=== PATIENT | male | born 1940 | race Caucasian/White ===

== ENCOUNTER → 2016-11-10 | Outpatient (CLI) | payer MEDICARE ==
--- NOTE | 2016-11-10 12:33 | CONS ---
DATE OF CONSULTATION: Reason for evaluation is CHAPINCITO. This is a 76-year-old male patient who was diagnosed and treated for obstructive sleep apnea through a Sleep Center in [facility] associated to [facility]. The patient is currently on a CPAP pressure of 11 cm of water. Using an AirFit P10 nasal pillow. He is using heated tubing. Compliancy is averaging around 5.5 hours of CPAP use every night and his CPAP use for more than 4 hours is 28 out of 30. No snoring while on the CPAP. No nocturia. He is averaging at least 6 hours of sleep every night. No major hypersomnia or sleepiness during the day. Alert and awake. Weight has been stable for now. No sleepwalking or sleeptalking. No restlessness in the lower extremities. No other complaints. Past medical history is CHAPINCITO, hypertension, diabetes mellitus, chronic renal failure, hypothyroidism, and BPH. Surgical history includes right shoulder replacement and back surgery. Drug allergies are not known. Patient medication list includes Gabapentin 100 mg 4 times q. day, Pravastatin 20 mg p.o. q. day, Pepcid 20 mg p.o. q. day, ( ) 1 mg 2 tablets at breakfast, Januvia 50 mg p.o. q. day, Flomax 0.4 q. day, Singulair 10 mg p.o. q. day, levothyroxine 75 mcg p.o. q. day, furosemide 20 mg p.o. q. day, aspirin 81 mg p.o. q. day, Norvasc 10 q. day, vitamin D 2,000 units q. day, magnesium 500 mg 1 tablet a day, coenzyme-Q and fish oil. SOCIAL HISTORY: Nonsmoker. No history of alcoholism. No history of IV drugs. Family history is negative for sleep breathing disorder. REVIEW OF SYSTEMS: A 12-point review of systems was done. No nausea, no vomiting, no abdominal pain, no insomnia, no choking or gasping for air. No restlessness in lower extremities. No palpitations. No sleepwalking or sleeptalking. No heartburn. No grinding of the teeth. No memory problems. No depression. BP is 136/66, pulse 64, respirations 16, temperature 97.2, saturation 95% on room air. BMI is 27.6. Weight is 166, height is 5, 5. Neck size 16 inches. GENERAL APPEARANCE: Calm, comfortable. HEENT: Negative for JVD. There is no goiter, neck masses. He has got an obvious overbite with crowding of the posterior pharynx. LUNGS: Clear to auscultation. HEART: Heart sounds are regular rate and rhythm, normal S1, S2. No S3, no murmurs. ABDOMEN: Soft, nontender. No organomegaly. EXTREMITIES: No edema. No cyanosis or clubbing. IMPRESSION: 1. Obstructive sleep apnea with successful therapy with a CPAP pressure of 11 cm of water. 2. Benign prostatic hypertrophy. 3. Hypertension. 4. Diabetes. 5. Chronic renal failure. 6. Hypothyroidism. PLAN: 1. Proceed with treatment with the same level of pressure which is 11 cm of water. 2. Renew the patient's CPAP supplies, including an AirFit P10 small size, heated tubing, filters, and chambers and supplies. 3. Encourage weight loss. 4. CPAP machine is functional and there is no need to repeat the study for now. The order will be sent to [facility], and the patient will see me back in a year's time in followup, earlier if needed.
== END ==
LOC: SLEEP 11:21
PROVIDERS: ATTEND Internal Medicine Critical Care Medicine
DX: G47.33 Obstructive sleep apnea (adult) (pediatric) (principal); I12.9 Hypertensive chronic kidney disease with stage 1 through stage 4 chronic kidney disease, or unspecified chronic kidney disease; N18.9 Chronic kidney disease, unspecified; E11.22 Type 2 diabetes mellitus with diabetic chronic kidney disease; E03.9 Hypothyroidism, unspecified; Z79.82 Long term (current) use of aspirin; Z79.899 Other long term (current) drug therapy
CPT/HCPCS: 99211

== ENCOUNTER → 2016-11-19 | Outpatient (CLI) | payer MEDICARE | END | disposition home or self-care (01) | LOC: LABWHC1 09:04 | PROVIDERS: ATTEND Family Medicine | DX: N18.9 Chronic kidney disease, unspecified (principal) | CPT/HCPCS: 36415; 81050; 82575; 84156 ==

== ENCOUNTER → 2016-11-20 | Outpatient (CLI) | payer MEDICARE ==
--- NOTE | 2016-11-20 14:44 | US ---
EXAMINATION TYPE: US kidneys/renal and bladder DATE OF EXAM: 11/20/2016 2:33 PM COMPARISON: NONE CLINICAL HISTORY: Chronic Kidney Disease N28.9. Diabetic; patient stated has had prior renal stones years ago. EXAM MEASUREMENTS: Right Kidney: 9.9 x 5.4 x 4.3 cm Left Kidney: 9.3 x 6.1 x 5.1 cm Post Void Residual Volume: 35.7 mL Right Kidney: upper pole parallel wall vessel calcification Left Kidney: No hydronephrosis or masses seen Bladder: wnl Bilateral Jets seen: Yes Normal Post Void Residual: Yes IMPRESSION: No significant abnormality.
== END | disposition home or self-care (01) ==
LOC: RADUSWWP 14:04
PROVIDERS: ATTEND Family Medicine
DX: N18.9 Chronic kidney disease, unspecified (principal)
CPT/HCPCS: 76770

== ENCOUNTER → 2017-01-23 | Outpatient (CLI) | payer MEDICARE ==
[2017-01-23 07:23] LABS: Basophils # (A) 0.1 k/uL (0-0.2); Basophils % (A) 1 %; CH 27.2; CHCM 33.1; Eosinophils # (A) 0.5 k/uL (0-0.7); Eosinophils % (A) 6 %; HCT 38.3 % (39.0-53.0); HDW 2.67; HGB 12.9 gm/dL (13.0-17.5); Luc # (Auto) 0.22; Luc % (Auto) 3; Lymphocytes # (A) 1.7 k/uL (1.0-4.8); Lymphocytes % (A) 20 %; MCH 27.7 pg (25.0-35.0); MCHC 33.6 g/dL (31.0-37.0); MCV 82.5 fL (80.0-100.0); Mean Platelet Volume 7.1; Monocytes # (A) 0.5 k/uL (0-1.0); Monocytes % (A) 6 %; Neutrophils # (A) 5.6 k/uL (1.3-7.7); Neutrophils % (A) 65 %; RBC 4.65 m/uL (4.30-5.90); RDW 14.1 % (11.5-15.5); WBC 8.6 k/uL (3.8-10.6); WBC (Perox) 8.61
[2017-01-23 07:55] LABS: Appearance,Urine Turbid (Clear); Bacteria,Urine Few /hpf; Bilirubin,Urine Negative (Negative); Glucose,Urine (UA) Negative (Negative); Ketones,Urine Negative (Negative); Leukocyte Esterase,Urine Large (Negative); Nitrite,Urine Positive (Negative); PH, Urine 6.5 (5.0-8.0); Particle Count 97310; Protein,Urine 1+ (Negative); RBC,Urine 25 /hpf (0-5); Specific Gravity,Urine 1.015 (1.001-1.035); Squamous Epithelial Cell,Urine 2 /hpf (0-4); UA Billing (MACRO vs. MICRO) MICRO; Urobilinogen,Urine <2.0 mg/dL (<2.0); WBC,Urine >182 /hpf (0-5)
[2017-01-23 10:52] LABS: Urine Creatinine 74.3 mg/dL
[2017-01-23 11:08] LABS: Magnesium 2.1 mg/dL (1.6-2.3); Phosphorous 3.6 mg/dL (2.5-4.5); Potassium 4.3 mmol/L (3.5-5.1); Total Bilirubin 0.4 mg/dL (0.2-1.3); Total Protein 7.3 g/dL (6.3-8.2); Uric Acid 6.1 mg/dL (3.5-8.5)
[2017-01-23 11:28] LABS: % Iron Saturation 12.5 % (20-50)
[2017-01-23 14:11] LABS: Hemoglobin A1C 8.2 % (4.2-6.1)
== END | disposition home or self-care (01) ==
LOC: LABWHC1 07:04
PROVIDERS: ATTEND Internal Medicine
DX: D64.9 Anemia, unspecified (principal); N18.4 Chronic kidney disease, stage 4 (severe); N39.0 Urinary tract infection, site not specified; E11.9 Type 2 diabetes mellitus without complications; E55.9 Vitamin D deficiency, unspecified; M10.9 Gout, unspecified
CPT/HCPCS: 36415; 80053; 81001; 82043; 82306; 82570; 82728; 83036; 83540; 83550; 83735; 83970; 84100; 84550; 85025; 87077; 87086; 87186

== ENCOUNTER → 2017-04-19 | Outpatient (CLI) | payer MEDICARE ==
[2017-04-19 08:54] LABS: CH 27.4; CHCM 32.2; HCT 40.5 % (39.0-53.0); HDW 2.61; MCH 27.3 pg (25.0-35.0); MCV 85.3 fL (80.0-100.0); Mean Platelet Volume 7.2; RBC 4.75 m/uL (4.30-5.90); RDW 14.8 % (11.5-15.5); WBC 7.4 k/uL (3.8-10.6)
[2017-04-19 09:02] LABS: Phosphorus 3.7 mg/dL (2.5-4.5); Potassium 4.6 mmol/L (3.5-5.1); Total Bilirubin 0.5 mg/dL (0.2-1.3); Total Protein 7.5 g/dL (6.3-8.2); Uric Acid 6.1 mg/dL (3.5-8.5)
[2017-04-19 15:17] LABS: Iron Saturation 18.39 (15.00-50.00)
== END | disposition home or self-care (01) ==
LOC: LABWHC1 07:50
PROVIDERS: ATTEND Internal Medicine
DX: N18.4 Chronic kidney disease, stage 4 (severe) (principal); D64.9 Anemia, unspecified; E21.3 Hyperparathyroidism, unspecified; E55.9 Vitamin D deficiency, unspecified; M10.9 Gout, unspecified
CPT/HCPCS: 36415; 80053; 82306; 82728; 83540; 83550; 83735; 83970; 84100; 84550; 85027

== ENCOUNTER → 2017-08-21 | Outpatient (CLI) | payer SELFPAY ==
[2017-08-21 07:39] LABS: Appearance,Urine Clear (Clear); Bilirubin,Urine Negative (Negative); Blood,Urine Trace (Negative); Color,Urine Yellow; Glucose,Urine (UA) Negative (Negative); Hyaline Casts,Urine 1 /lpf (0-2); Ketones,Urine Negative (Negative); Leukocyte Esterase,Urine Small (Negative); Nitrite,Urine Negative (Negative); Protein,Urine 2+ (Negative); RBC,Urine 1 /hpf (0-5); Specific Gravity,Urine 1.015 (1.001-1.035); Squamous Epithelial Cell,Urine <1 /hpf (0-4); Urobilinogen,Urine <2.0 mg/dL (<2.0); WBC,Urine 14 /hpf (0-5)
[2017-08-21 07:55] LABS: Calcium 9.9 mg/dL (8.4-10.2); Magnesium 2.1 mg/dL (1.6-2.3); Phosphorus 3.5 mg/dL (2.5-4.5); Potassium 4.6 mmol/L (3.5-5.1); Total Bilirubin 0.6 mg/dL (0.2-1.3); Total Protein 6.9 g/dL (6.3-8.2); Uric Acid 5.8 mg/dL (3.5-8.5)
[2017-08-21 07:56] LABS: HCT 41.3 % (39.0-53.0); HGB 13.5 gm/dL (13.0-17.5); MCHC 32.7 g/dL (31.0-37.0); MCV 85.5 fL (80.0-100.0); Mean Platelet Volume 6.8; Platelet Count 191 k/uL (150-450); RBC 4.83 m/uL (4.30-5.90); RDW 14.3 % (11.5-15.5); WBC 7.3 k/uL (3.8-10.6)
[2017-08-21 10:44] LABS: Iron Saturation 31.18 (15.00-50.00)
[2017-08-21 11:35] LABS: Parathyroid Hormone Intact 89.3 pg/mL (14.0-72.0)
== END | disposition home or self-care (01) ==
LOC: LABWHC1 07:03
PROVIDERS: ATTEND Nurse Practitioner Family
DX: N39.0 Urinary tract infection, site not specified (principal); M10.9 Gout, unspecified; E55.9 Vitamin D deficiency, unspecified; D50.9 Iron deficiency anemia, unspecified; N25.81 Secondary hyperparathyroidism of renal origin; N18.4 Chronic kidney disease, stage 4 (severe); E21.3 Hyperparathyroidism, unspecified
CPT/HCPCS: 36415; 80053; 81001; 82306; 82728; 83540; 83550; 83735; 83970; 84100; 84550; 85027

== ENCOUNTER → 2017-09-20 | Outpatient (CLI) | payer SELFPAY ==
[2017-09-20 08:00] LABS: MCH 28.7 pg (25.0-35.0); MCHC 33.4 g/dL (31.0-37.0); MCV 85.8 fL (80.0-100.0); Mean Platelet Volume 7.6; Platelet Count 168 k/uL (150-450); RBC 4.54 m/uL (4.30-5.90); RDW 14.1 % (11.5-15.5); WBC 9.5 k/uL (3.8-10.6)
[2017-09-20 08:19] LABS: Appearance,Urine Clear (Clear); Bilirubin,Urine Negative (Negative); Blood,Urine Trace (Negative); Color,Urine Light Yellow; Glucose,Urine (UA) 3+ (Negative); Ketones,Urine Negative (Negative); Leukocyte Esterase,Urine Negative (Negative); Nitrite,Urine Negative (Negative); PH, Urine 6.5 (5.0-8.0); Protein,Urine 2+ (Negative); Specific Gravity,Urine 1.015 (1.001-1.035); Squamous Epithelial Cell,Urine <1 /hpf (0-4); Urobilinogen,Urine <2.0 mg/dL (<2.0); WBC,Urine 1 /hpf (0-5)
[2017-09-20 08:39] LABS: Albumin 4.3 g/dL (3.5-5.0); Magnesium 2.2 mg/dL (1.6-2.3); Phosphorus 4.2 mg/dL (2.5-4.5); Potassium 4.3 mmol/L (3.5-5.1); Total Bilirubin 0.6 mg/dL (0.2-1.3); Total Protein 7.3 g/dL (6.3-8.2); Uric Acid 6.4 mg/dL (3.5-8.5)
[2017-09-20 12:13] LABS: Creatinine,Urine Random 76.8 mg/dL
[2017-09-20 12:59] LABS: Collection Time,Urine 24 hrs; Total Volume 24 Hour,Urine 1350 mls (250-2400)
[2017-09-20 13:12] LABS: Total Protein 24 Hour,Urine 1823 mg/24hr (42.0-225.0)
[2017-09-20 17:22] LABS: Parathyroid Hormone Intact 112.3 pg/mL (14.0-72.0)
[2017-09-20 17:37] LABS: Vitamin D 25 Hydroxy 39.7 ng/mL (30.0-100.0)
[2017-09-20 18:00] LABS: Hemoglobin A1C 8.5 % (4.0-6.0)
[2017-09-20 18:08] LABS: Iron Saturation 24.75 (15.00-50.00)
[2017-09-20 18:38] LABS: Anti-DNA, DS unit <1.0 IU/mL; DNA Double-Stranded NEGATIVE (NEGATIVE)
[2017-09-21 11:38] LABS: ANA Pattern Speckled; ANA Pattern 2 Nucleolar
[2017-09-22 13:49] LABS: C-ANCA <1:20 Titer (<1:20); P-ANCA <1:20 Titer (<1:20)
== END | disposition home or self-care (01) ==
LOC: LABWHC1 06:47
PROVIDERS: ATTEND Nurse Practitioner Family
DX: N18.4 Chronic kidney disease, stage 4 (severe) (principal); D50.9 Iron deficiency anemia, unspecified; E21.3 Hyperparathyroidism, unspecified; E11.21 Type 2 diabetes mellitus with diabetic nephropathy; N39.0 Urinary tract infection, site not specified; M10.9 Gout, unspecified; R80.9 Proteinuria, unspecified
CPT/HCPCS: 36415; 80053; 81001; 81050; 82306; 82570; 82728; 83036; 83516; 83540; 83550; 83735; 83883; 83970; 84100; 84156; 84550; 85027; 86038; 86039; 86160; 86162; 86225; 86255; 86334; 86335

== ENCOUNTER → 2017-12-25 | Outpatient (CLI) | payer OTHER ==
[2017-12-25 08:35] LABS: HCT 40.7 % (39.0-53.0); HGB 13.3 gm/dL (13.0-17.5); MCH 27.9 pg (25.0-35.0); MCHC 32.7 g/dL (31.0-37.0); MCV 85.2 fL (80.0-100.0); Mean Platelet Volume 7.3; Platelet Count 174 k/uL (150-450); RBC 4.78 m/uL (4.30-5.90); RDW 14.1 % (11.5-15.5)
[2017-12-25 08:55] LABS: Appearance,Urine Clear (Clear); Bilirubin,Urine Negative (Negative); Blood,Urine Trace (Negative); Color,Urine Light Yellow; Glucose,Urine (UA) Negative (Negative); Ketones,Urine Negative (Negative); Leukocyte Esterase,Urine Negative (Negative); Nitrite,Urine Negative (Negative); PH, Urine 6.5 (5.0-8.0); Protein,Urine 2+ (Negative); RBC,Urine <1 /hpf (0-5); Specific Gravity,Urine 1.012 (1.001-1.035); Urobilinogen,Urine <2.0 mg/dL (<2.0); WBC,Urine 1 /hpf (0-5)
[2017-12-25 09:45] LABS: Albumin 4.3 g/dL (3.5-5.0); Calcium 9.8 mg/dL (8.4-10.2); Magnesium 1.9 mg/dL (1.6-2.3); Phosphorus 3.9 mg/dL (2.5-4.5); Potassium 4.6 mmol/L (3.5-5.1); Total Bilirubin 0.6 mg/dL (0.2-1.3); Total Protein 7.2 g/dL (6.3-8.2)
[2017-12-25 16:58] LABS: Iron Saturation 18.65 (15.00-50.00)
[2017-12-25 17:07] LABS: Vitamin D 25 Hydroxy 34.2 ng/mL (30.0-100.0)
[2017-12-25 17:43] LABS: Parathyroid Hormone Intact 108.1 pg/mL (14.0-72.0)
[2017-12-25 19:23] LABS: Hemoglobin A1C 8.2 % (4.0-6.0)
== END | disposition home or self-care (01) ==
LOC: LABWHC1 08:03
PROVIDERS: ATTEND Nurse Practitioner Family
DX: N39.0 Urinary tract infection, site not specified (principal); M10.9 Gout, unspecified; N18.4 Chronic kidney disease, stage 4 (severe); E21.3 Hyperparathyroidism, unspecified; D50.9 Iron deficiency anemia, unspecified; E11.21 Type 2 diabetes mellitus with diabetic nephropathy
CPT/HCPCS: 36415; 80053; 81001; 82306; 82728; 83036; 83540; 83550; 83735; 83970; 84100; 84550; 85027

== ENCOUNTER → 2018-03-29 | Outpatient (CLI) | payer MEDICARE, OTHER ==
[2018-03-29 07:18] LABS: Appearance,Urine Clear (Clear); Bilirubin,Urine Negative (Negative); Blood,Urine Small (Negative); Color,Urine Light Yellow; Glucose,Urine (UA) 3+ (Negative); Ketones,Urine Negative (Negative); Leukocyte Esterase,Urine Negative (Negative); Mucus,Urine Rare /hpf; Nitrite,Urine Negative (Negative); Protein,Urine 3+ (Negative); RBC,Urine <1 /hpf (0-5); Specific Gravity,Urine 1.012 (1.001-1.035); Urobilinogen,Urine <2.0 mg/dL (<2.0); WBC,Urine <1 /hpf (0-5)
[2018-03-29 07:41] LABS: HCT 42.6 % (39.0-53.0); HGB 13.9 gm/dL (13.0-17.5); MCH 27.9 pg (25.0-35.0); MCHC 32.6 g/dL (31.0-37.0); MCV 85.6 fL (80.0-100.0); Mean Platelet Volume 6.7; Platelet Count 199 k/uL (150-450); RBC 4.97 m/uL (4.30-5.90); RDW 14.7 % (11.5-15.5); WBC 8.4 k/uL (3.8-10.6)
[2018-03-29 07:51] LABS: Calcium 9.4 mg/dL (8.4-10.2); Magnesium 1.7 mg/dL (1.6-2.3); Phosphorus 4.6 mg/dL (2.5-4.5); Potassium 4.3 mmol/L (3.5-5.1); Total Bilirubin 0.5 mg/dL (0.2-1.3); Uric Acid 5.1 mg/dL (3.5-8.5)
[2018-03-29 13:31] LABS: Parathyroid Hormone Intact 158.2 pg/mL (14.0-72.0)
[2018-03-29 13:39] LABS: Iron Saturation 23.19 (15.00-50.00)
[2018-03-29 13:47] LABS: Vitamin D 25 Hydroxy 20.5 ng/mL (30.0-100.0)
[2018-03-29 14:18] LABS: Hemoglobin A1C 7.5 % (4.0-6.0)
== END | disposition home or self-care (01) ==
LOC: LABWHC1 06:35
PROVIDERS: ATTEND Nurse Practitioner Family
DX: N39.0 Urinary tract infection, site not specified (principal); M10.9 Gout, unspecified; E11.22 Type 2 diabetes mellitus with diabetic chronic kidney disease; N18.4 Chronic kidney disease, stage 4 (severe); E11.21 Type 2 diabetes mellitus with diabetic nephropathy; D50.9 Iron deficiency anemia, unspecified; E21.3 Hyperparathyroidism, unspecified
CPT/HCPCS: 36415; 80053; 81001; 82306; 82728; 83036; 83540; 83550; 83735; 83970; 84100; 84550; 85027

== ENCOUNTER → 2018-04-20 | Outpatient (CLI) | payer MEDICARE ==
--- NOTE | 2018-04-21 09:00 | US ---
EXAMINATION TYPE: US pelvic limited DATE OF EXAM: 04/20/2018 COMPARISON: Prior renal ultrasound November 20, 2016 CLINICAL HISTORY: R35.0 Urinary Frequency. EXAM MEASUREMENTS: Bladder appears wnl Bilateral jets are seen Post void volume = 55.5ml Bladder is satisfactorily distended without intraluminal mass or wall thickening initially. After voi ding slightly abnormal post void residual is present. IMPRESSION: Abnormal post void residual on current study.
== END | disposition home or self-care (01) ==
LOC: RADUSWWP 15:11
PROVIDERS: ATTEND Family Medicine
DX: R39.198 Other difficulties with micturition (principal)
CPT/HCPCS: 76857

== ENCOUNTER → 2018-08-08 | Outpatient (CLI) | payer MEDICARE ==
[2018-08-08 14:26] LABS: HCT 37.7 % (39.0-53.0); MCH 29.6 pg (25.0-35.0); MCHC 34.6 g/dL (31.0-37.0); MCV 85.5 fL (80.0-100.0); Mean Platelet Volume 7.2; Platelet Count 183 k/uL (150-450); RBC 4.41 m/uL (4.30-5.90); RDW 14.7 % (11.5-15.5); WBC 9.7 k/uL (3.8-10.6)
[2018-08-08 15:26] LABS: RBC,Urine 1 /hpf (0-5); Squamous Epithelial Cell,Urine <1 /hpf (0-4); WBC,Urine 4 /hpf (0-5)
[2018-08-08 15:42] LABS: Appearance,Urine Clear (Clear); Bilirubin,Urine Negative (Negative); Blood,Urine Small (Negative); Color,Urine Light Yellow; Glucose,Urine (UA) 2+ (Negative); Ketones,Urine Negative (Negative); Leukocyte Esterase,Urine Negative (Negative); Mucus,Urine Rare /hpf; Nitrite,Urine Negative (Negative); Protein,Urine 3+ (Negative); Specific Gravity,Urine 1.014 (1.001-1.035); Urobilinogen,Urine <2.0 mg/dL (<2.0)
[2018-08-09 00:30] LABS: Albumin 4.2 g/dL (3.80-4.90); Albumin/Globulin Ratio 1.75 (1.20-2.10); Anion Gap 9.5 mmol/L (4.00-12.00); Calcium 9.7 mg/dL (8.7-10.3); Carbon Dioxide 22.5 mmol/L (21.6-31.8); Globulin 2.4 g/dL (1.6-3.3); Iron Saturation 22.22 (15.00-50.00); Magnesium 1.9 mg/dL (1.5-2.4); Phosphorus 3.4 mg/dL (2.4-5.1); Potassium 4.6 mmol/L (3.5-5.5); Total Bilirubin 0.5 mg/dL (0.3-1.2); Total Protein 6.6 g/dL (6.2-8.2); Uric Acid 5.1 mg/dL (3.7-8.7)
[2018-08-09 00:49] LABS: Parathyroid Hormone Intact 137.5 pg/mL (14.0-72.0)
== END ==
LOC: LABWHC1 12:47
PROVIDERS: ATTEND Nurse Practitioner Family
DX: E21.3 Hyperparathyroidism, unspecified (principal); N25.81 Secondary hyperparathyroidism of renal origin; N39.0 Urinary tract infection, site not specified; M10.9 Gout, unspecified; D63.1 Anemia in chronic kidney disease; D50.9 Iron deficiency anemia, unspecified
CPT/HCPCS: 36415; 80053; 81001; 82728; 83540; 83550; 83735; 83880; 83970; 84100; 84550; 85027

== ENCOUNTER → 2018-09-15 | Outpatient (CLI) | payer MEDICARE ==
--- NOTE | 2018-09-15 13:53 | CT ---
"EXAMINATION TYPE: CT abdomen pelvis wo con DATE OF EXAM: 09/15/2018 COMPARISON: None HISTORY: Abdominal pain, upset stomach x [address] DLP: 1002 mGycm Automated exposure control for dose reduction was used. TECHNIQUE: Helical acquisition of images was performed from the lung bases through the pelvis. FINDINGS: LUNG BASES: There is cardiomegaly and dense coronary artery calcification. Subsegmental changes at lisseth th lung bases are suggestive of atelectasis. LIVER/GB: Numerous small gallstones are seen. PANCREAS: No significant abnormality is seen. SPLEEN: No significant abnormality is seen. ADRENALS: No significant abnormality is seen. KIDNEYS: No significant abnormality is seen. ADENOPATHY: None visualized. OSSEOUS STRUCTURES: Scoliotic curvature with hypertrophic and degenerative changes of the spine. BOWEL: Multiple diverticuli are seen. Along the lateral margin of the sigmoid colon very minimal inc reased attenuation which could represent mild diverticulitis situs. Retained debris within the colon and incomplete distention limiting assessment for mass or mucosal lesion. No evidence of obstruction. OTHER: Atherosclerotic changes aorta but no evidence of aneurysm. Bilateral fat-containing inguinal h ernia. IMPRESSION: 1. Cholelithiasis 2. Dense coronary artery calcification. 3. There is colonic diverticulosis 3 minimal ill attenuation the pericolonic fat near the sigmoid col on. This may represent very mild diverticulitis. Correlate clinically. A Yellow level critical message alert has been initiated for Usman Mena MD via the [employer] | Critical Results System on 09/15/2018 1:49 PM. This message alert has been sent to Usman Mena MD via the preferences provided by the clinician for the receipt of Radiology Critical Fi ndings. Message ID [id number]."
== END | disposition home or self-care (01) ==
LOC: RADCTMAIN 12:25
PROVIDERS: ATTEND Family Medicine
DX: K80.20 Calculus of gallbladder without cholecystitis without obstruction (principal); K57.30 Diverticulosis of large intestine without perforation or abscess without bleeding
CPT/HCPCS: 74176

== ENCOUNTER 2018-10-27 12:37 | Inpatient (IN) | payer MEDICARE ==
[2018-10-18 08:42] VITALS: BMI 28.8
[~2018-10-27 12:37] MED LIST: DEXAMETHASONE SOD PHOSPHATE 10 MG/ML 1 ML VIAL IV ONE; HEPARIN SODIUM,PORCINE 5,000 UNIT/ML 1 ML VIAL SQ ONE; HYDROmorphone 0.5 MG/0.5 ML SYRINGE IVP PRN; LIDOCAINE 1% 20 ML VIAL (10MG/ML) FOR IV START INTRADERMA PRN; MIDAZOLAM 2 MG/2 ML VIAL IV PRN; SCOPOLAMINE 1.5MG/72HR PATCH TRANSDERM ONE; ceFAZolin IN SWFI 2 GM/20 ML SYRINGE IVP ONE
[2018-10-27] MEDS: ONDANSETRON 4 MG/2 ML VIAL IVP ONE ×2 (13:29→16:35)
[2018-10-27] MEDS: LACTATED RINGERS 1,000 ML IV SCH ×4 (13:29→23:10)
[2018-10-27 13:30] LABS: Glucose,Whole Blood 104 mg/dL (75-99)
[2018-10-27 13:51] LABS: Calcium 10.5 mg/dL (8.4-10.2)
[2018-10-27 13:57] LABS: Potassium 4.7 mmol/L (3.5-5.1)
[2018-10-27] MEDS ORDERED: SUCCINYLCHOLINE CHLORIDE 100 MG/5 ML SYR IV ONE (14:15)
[2018-10-27] MEDS ORDERED: MIDAZOLAM 2 MG/2 ML VIAL ONE (14:15)
[2018-10-27] MEDS ORDERED: fentaNYL (PF) 50 MCG/ML 2 ML AMP ONE (14:15)
[2018-10-27] MEDS ORDERED: PHENYLEPHRINE-0.9% NACL SYG 1 MG/10 ML SYRINGE ONE (14:15)
[2018-10-27] MEDS ORDERED: PROPOFOL 10 MG/ML 20 ML VIAL IV ONE (14:15)
[2018-10-27] MEDS ORDERED: NEOSTIGMINE 1 MG/ML 10 ML VIAL ONE (14:15)
[2018-10-27] MEDS ORDERED: ROCURONIUM BROMIDE 10 MG/ML 10 ML VIAL IV ONE (14:15)
[2018-10-27] MEDS ORDERED: ePHEDrine SULFATE/0.9% NACL/PF 50 MG/5 ML SYRINGE IV ONE (14:15)
[2018-10-27] MEDS ORDERED: GLYCOPYRROLATE 0.2 MG/ML 2 ML VIAL ONE (14:15)
[2018-10-27] MEDS ORDERED: BUPIVACAIN-EPI 0.5%-1:200,000 30 ML VIAL SQ ONE ×2 (14:39)
[2018-10-27] MEDS ORDERED: HYDROmorphone 0.5 MG/0.5 ML SYRINGE IVP PRN (15:59)
[2018-10-27] MEDS ORDERED: ACETAMINOPHEN IV (For NPO) 1,000 MG in EMPTY BAG 1 BAG IVPB ONE (15:59)
[2018-10-27] MEDS ORDERED: ACETAMINOPHEN TAB 325 MG TAB PO PRN (15:59)
[2018-10-27] MEDS ORDERED: HYDROcodone/APAP 5-325MG 1 EACH TAB PO PRN (15:59)
[2018-10-27] MEDS ORDERED: NALOXONE 0.4 MG/ML 1 ML VIAL IV PRN (15:59)
--- NOTE | 2018-10-27 16:14 | P.OP ---
Date of Procedure: 10/27/18 Preoperative Diagnosis: Symptomatic cholelithiasis Postoperative Diagnosis: Symptomatic cholelithiasis Enterotomy Dense adhesions throughout abdomen Procedure(s) Performed: Laparoscopic cholecystectomy Laparotomy with primary repair of enterotomy Anesthesia: NOMAN Surgeon: Kim Mcdowell Pathology: other (Gallbladder and contents) Condition: stable Disposition: floor Indications for Procedure: 78-year-old male with complaints of nausea and right upper quadrant pain. He was found to have cholelithiasis on ultrasound. Secondary to this, there was planned for laparoscopic cholecystectomy. The patient was explained the risks, benefits and alternatives to the procedure and did provide consent prior to attending the operating suite. Operative Findings: Dense adhesions noted throughout the abdomen. A small enterotomy noted during takedown of adhesions. This was repaired primarily. Gallbladder with dense peritoneal attachments. Description of Procedure: The patient was brought into the operating suite and placed in the operating table in supine position. Sedation was provided by anesthesia and the patient underwent endotracheal intubation. The patient was then prepped and draped in regular sterile fashion. The patient was noted to have multiple incision scars on his abdomen and it was decided to enter the abdomen from the left upper quadrant and palmers point. A small incision was made and the abdomen was entered under direct visualization using a 5 mm port. Pneumoperitoneum was achieved. On examination of the abdomen, patient was noted to have a significant amount of adhesions throughout the abdomen. An additional 5 mm port was then placed in the left lower quadrant and meticulous blunt and sharp dissection was used to perform a lysis of adhesion. Adhesions were noted in bilateral lower quadrants of the abdomen along with the left upper quadrant. The lysis of adhesions took approximately 45 minutes. Once the appropriate area was noted to be free of adhesions, additional ports were placed in the abdomen. A 12 mm port was placed in the right lower quadrant. 25 mm ports were placed in the right upper quadrant. The patient was then placed in appropriate position the gallbladder was grasped and retracted. Dissection was carried along the infundibulum to dissect the cystic duct. Both the cystic duct and the cystic artery were clearly visualized and the critical view. Both the cystic duct and cystic artery were skeletonized. 2 clips were placed proximally on the cystic duct one was placed distally and the cystic duct was ligated. 2 clips were placed proximally on the cystic artery one was placed distally and the cystic artery was ligated. Electrocautery was then used to dissect the gallbladder from the gallbladder fossa and the gallbladder was dissected free. The gallbladder was then placed in an Endo Catch bag and removed from the 12 mm port in the right lower quadrant. Irrigation was then used in the right upper quadrant and suctioned. The scope was then used to examine the bowel secondary to the extensive lysis of adhesions. In the left lower quadrant there was an area of concern for a possibility of enterotomy. A 5 cm incision was made and dissection was carried to the fascia the fascia was incised along the length of the incision. The peritoneum was entered and this portion of the bowel was examined. There was concern that there was a small enterotomy at this site. T he enterotomy was repaired primarily with 3-0 Vicryl suture in a 2 layer format. There was no evidence of leak at this site. The bowel was then reduced back into the abdomen and the fascial layer was closed with a running 0 Vicryl suture. Further examination of the abdomen with the laparoscope did not reveal any other additional injuries. A DANIEL drain was placed in the right upper quadrant inferior to the liver and was sutured in place using a 2-0 nylon suture. All additional port sites were then removed from the abdomen. Skin incisions were all closed using skin jose e. The patient was awakened in the operating suite and taken to postanesthesia care unit in stable condition.
[2018-10-27 16:23] LABS: Glucose,Whole Blood 151 mg/dL (75-99)
[2018-10-27] MEDS: GABAPENTIN 100 MG CAP PO SCH ×2 (17:43→22:16)
[2018-10-27] MEDS: MONTELUKAST 10 MG TAB PO SCH (17:43)
[2018-10-27] MEDS: DOCUSATE 100 MG CAP PO SCH (21:01)
[2018-10-27] MEDS: SODIUM BICARBONATE TAB 650 MG TAB PO SCH (21:01)
[2018-10-27] MEDS: HEPARIN SODIUM,PORCINE 5,000 UNIT/ML 1 ML VIAL SQ SCH (23:09)
[2018-10-28] MEDS: LEVOTHYROXINE 75 MCG TAB PO SCH (05:20)
[2018-10-28 07:21] LABS: Glucose,Whole Blood 140 mg/dL (75-99)
--- NOTE | 2018-10-28 08:06 | P.PN ---
Subjective Progress Note Date: 10/28/18 Patient seen and examined at bedside. States he is having some abdominal soreness. Denies any flatus. Denies any nausea and vomiting. Objective - Vital Signs Vital signs: Vital Signs Temp 98.4 F 10/28/18 07:00 Pulse 72 10/28/18 07:00 Resp 16 10/28/18 07:00 BP 161/72 10/28/18 07:00 Pulse Ox 96 10/28/18 07:00 Intake & Output 10/27/18 10/28/18 10/28/18 18:59 06:59 18:59 Intake Total 600 Output Total 10 340 Balance 590 -340 Intake: IV 600 Output: Drainage 40 Anterior Abdomen 40 Urine 300 Estimated Blood Loss 10 Other: # Voids 1 - Constitutional General appearance: Present: cooperative, no acute distress - Respiratory Details: No difficulty with respiration - Gastrointestinal Gastrointestinal Comment(s): Soft, appropriate tenderness, nondistended, no rebound, no guarding, incision sites are clean, dry and intact - Psychiatric Psychiatric: Present: A&O x's 3 - Labs CBC & Chem 7: 10/27/18 13:21 Labs: Abnormal Lab Results - Last 24 Hours (Table) 10/27/18 10/27/18 10/27/18 Range/Units 13:21 13:25 16:20 Chloride 110 H (98-107) mmol/L Carbon Dioxide 20 L (22-30) mmol/L BUN 62 H (9-20) mg/dL Creatinine 3.07 H (0.66-1.25) mg/dL Glucose 100 H (74-99) mg/dL POC Glucose (mg/dL) 104 H 151 H (75-99) mg/dL Calcium 10.5 H (8.4-10.2) mg/dL 10/28/18 Range/Units 07:09 Chloride (98-107) mmol/L Carbon Dioxide (22-30) mmol/L BUN (9-20) mg/dL Creatinine (0.66-1.25) mg/dL Glucose (74-99) mg/dL POC Glucose (mg/dL) 140 H (75-99) mg/dL Calcium (8.4-10.2) mg/dL Assessment and Plan Plan: 78-year-old male postoperative day 1 from laparoscopic cholecystectomy, extens moody lysis of adhesions and enterotomy repair - The patient is doing well today. Advanced to clear liquid diet. - Nephrology and medical consult - Await bowel function - Progressing slowly
[2018-10-28] MEDS ORDERED: TORSEMIDE 20 MG TAB PO SCH (09:00)
[2018-10-28] MEDS: GABAPENTIN 300 MG CAP PO SCH (09:03)
[2018-10-28] MEDS: FERROUS SULFATE 325 MG TAB PO SCH (09:04)
[2018-10-28] MEDS: DOCUSATE 100 MG CAP PO SCH ×2 (09:04→22:10)
[2018-10-28] MEDS: ATORVASTATIN 10 MG TAB PO SCH (09:04)
[2018-10-28] MEDS: SODIUM BICARBONATE TAB 650 MG TAB PO SCH ×3 (09:04→22:10)
[2018-10-28] MEDS: CHOLECALCIFEROL 1,000 UNIT TAB PO SCH (09:04)
[2018-10-28] MEDS: OXYBUTYNIN CHLORIDE 5 MG TAB PO SCH (09:05)
[2018-10-28] MEDS: HEPARIN SODIUM,PORCINE 5,000 UNIT/ML 1 ML VIAL SQ SCH ×2 (09:05→15:36)
[2018-10-28] MEDS: PANTOPRAZOLE 40 MG/10 ML VIAL IV SCH (09:05)
[2018-10-28] MEDS: ISOSORBIDE MONONITRATE 10 MG TAB PO SCH (09:09)
[2018-10-28 10:12] LABS: Basophils % (A) 0 %; Eosinophils % (A) 0 %; HCT 38.2 % (39.0-53.0); HGB 12.4 gm/dL (13.0-17.5); Lymphocytes # (A) 1.4 k/uL (1.0-4.8); Lymphocytes % (A) 11 %; MCH 28.3 pg (25.0-35.0); MCHC 32.3 g/dL (31.0-37.0); MCV 87.4 fL (80.0-100.0); Mean Platelet Volume 7.4; Monocytes # (A) 0.7 k/uL (0-1.0); Monocytes % (A) 6 %; Neutrophils # (A) 10.9 k/uL (1.3-7.7); Neutrophils % (A) 83 %; Platelet Count 187 k/uL (150-450); RBC 4.38 m/uL (4.30-5.90); RDW 15.1 % (11.5-15.5); WBC 13.2 k/uL (3.8-10.6)
[2018-10-28 10:22] LABS: Albumin 3.9 g/dL (3.5-5.0); Calcium 9.9 mg/dL (8.4-10.2); Potassium 4.9 mmol/L (3.5-5.1); Total Bilirubin 0.8 mg/dL (0.2-1.3); Total Protein 6.8 g/dL (6.3-8.2)
[2018-10-28] MEDS: LACTATED RINGERS 1,000 ML IV SCH ×3 (12:17→12:21)
[2018-10-28 12:28] LABS: Glucose,Whole Blood 217 mg/dL (75-99)
[2018-10-28] MEDS ORDERED: INSULIN ASPART (NovoLOG) 100 UNIT/ML VIAL SQ SCH ×2 (12:30→17:30)
[2018-10-28] MEDS: INSULIN ASPART (NovoLOG) 100 UNIT/ML VIAL SQ SCH ×3 (12:46→22:10)
--- NOTE | 2018-10-28 14:06 | P.NPCON ---
History of Present Illness - Reason for Consult acute renal failure, chronic renal failure - History of Present Illness Reason for consultation: Acute kidney injury on chronic kidney disease History of present illness: Patient is a 78-year-old male seen in renal consultation for acute kidney injury on chronic kidney disease. Patient has chronic kidney disease stage IV secondary to diabetic kidney disease with baseline creatinine near 2.5. Creatinine was 2.07 on admission and is 3.09 today. Patient presented to the hospital due to abdominal pain and underwent laparoscopic cholecystectomy with repair of enterotomy on October 27. He is currently sitting up in chair. Oral intake is good. He is on clear liquid diet. Denies chest pain or shortness of breath. No edema. He is maintained on Demadex 40 mg daily. No edema. No vomiting or diarrhea. No evidence of hypotension. He has been voiding. No hematuria or dysuria. No active complaints at this time. Vital signs are stable. General: The patient appeared well nourished and normally developed. HEENT: Head exam is unremarkable. Neck is without jugular venous distension. LUNGS: Lungs are clear to auscultation and percussion. Breath sounds decreased. HEART: Rate and Rhythm are regular. First and second heart sounds normal. No murmurs, rubs or gallops. ABDOMEN: Abdominal exam reveals normal bowel sounds. Non-tender and non-distend ed. No evidence of peritonitis. EXTREMITITES: No clubbing, cyanosis, or edema. Past Medical History Past Medical History: Diabetes Mellitus, Hypertension, Osteoarthritis (OA), Renal Disease, Sleep Apnea/CPAP/BIPAP, Thyroid Disorder Additional Past Medical History / Comment(s): neuropathy porfirio feet, gallstones, kidney function at 25%, hx kidney stones History of Any Multi-Drug Resistant Organisms: None Reported Past Surgical History: Appendectomy, Back Surgery, Cholecystectomy, Hernia Repair, Joint Replacement, Orthopedic Surgery, Tonsillectomy Additional Past Surgical History / Comment(s): rt shoulder replacement, left shoulder arthroscopy, vascular surgery left arm Past Anesthesia/Blood Transfusion Reactions: No Reported Reaction Past Psychological History: No Psychological Hx Reported Smoking Status: Never smoker Past Alcohol Use History: None Reported Additional Past Alcohol Use History / Comment(s): NO blood draws,BP or IV's in left arm due to hx vascular surgery left arm. Past Drug Use History: None Reported - Past Family History Brother(s) Family Medical History: Cancer, Deep Vein Thrombosis (DVT) Medications and Allergies Home Medications Medication Instructions Recorded Confirmed Type Aspirin [Adult Low Dose Aspirin EC] 81 mg PO DAILY 01/07/17 10/27/18 History Montelukast [Singulair] 10 mg PO W/SUPPER 01/07/17 10/27/18 History Sodium Bicarbonate 650 mg PO TID 01/07/17 10/27/18 History Torsemide [Demadex] 40 mg PO DAILY 01/07/17 10/27/18 History Acetaminophen [Tylenol] 1,000 mg PO QAM 10/18/18 10/27/18 History Atorvastatin [Lipitor] 10 mg PO DAILY 10/18/18 10/27/18 History Calcitriol 0.25 mcg PO MO 10/18/18 10/27/18 History Cholecalciferol [Vitamin D3] 2,000 unit PO DAILY 10/18/18 10/27/18 History Ferrous Sulfate [Iron] 325 mg PO DAILY 10/18/18 10/27/18 History Gabapentin [Neurontin] 100 mg PO BID@1700,2300 10/18/18 10/27/18 History Insulin Glargine [Lantus] 38 unit SQ W/BRKFST 10/18/18 10/27/18 History Insulin Lispro [humaLOG Kwikpen] 8 unit SQ W/LUNCH 10/18/18 10/27/18 History Insulin Lispro [humaLOG Kwikpen] 12 unit SQ W/BRKFST 10/18/18 10/27/18 History Insulin Lispro [humaLOG Kwikpen] 12 unit SQ W/SUPPER 10/18/18 10/27/18 History Isosorbide Mononitrate [Ismo] 10 mg PO DAILY 10/18/18 10/27/18 History Levothyroxine Sodium [Synthroid] 75 mcg PO DAILY 10/18/18 10/27/18 History Oxybutynin Chloride [Ditropan] 5 mg PO DAILY 10/18/18 10/27/18 History Gabapentin [Neurontin] 300 mg PO TID 10/27/18 10/27/18 History Allergies Allergy/AdvReac Type Severity Reaction Status Date / Time No Known Allergies Allergy Verified 10/27/18 17:59 Physical Exam Vitals: Vital Signs Temp Pulse Resp BP BP Pulse Ox 10/28/18 08:00 72 16 10/28/18 07:00 98.4 F 72 16 161/72 96 10/27/18 23:00 98.5 F 72 18 171/69 98 10/27/18 19:06 63 166/71 100 10/27/18 18:36 61 174/65 99 10/27/18 18:21 59 L 178/69 99 10/27/18 18:15 67 155/65 10/27/18 18:00 63 178/74 10/27/18 17:51 178/74 10/27/18 17:45 61 177/68 10/27/18 17:36 177/68 10/27/18 17:30 97.4 F L 60 14 174/68 99 10/27/18 17:21 174/68 10/27/18 16:45 55 L 16 158/64 97 10/27/18 16:30 58 L 16 169/63 98 10/27/18 16:17 60 16 163/66 96 10/27/18 16:02 97.3 F L 62 16 167/77 95 Intake and Output 10/27/18 10/28/18 10/28/18 22:59 06:59 14:59 Output Total 10 340 300 Balance -10 -340 -300 Output: Drainage 40 Anterior Abdomen 40 Urine 300 300 Estimated Blood Loss 10 Other: Voiding Method Urinal # Voids 1 Results - Lab Results Most recent lab results Calcium 9.9 mg/dL (8.4-10.2) 10/28/18 08:58 10/28/18 08:58 10/28/18 08:58 Assessment and Plan Plan: Assessment: 1. Acute kidney injury mostly prerenal secondary to diuretics. Creatinine 3.09 today. Rule out urinary retention. 2. Chronic kidney disease stage IV secondary to diabetic kidney disease. Baseline creatinine near 2.5. Patient has a functioning AV fistula in the left upper extremity. He is also interested in peritoneal dialysis. 3. Chronic kidney disease mineral bone disease maintained on calcitriol. 4. Status post laparoscopic cholecystectomy and repair of enterotomy on October 27. 5. Insulin-dependent diabetes mellitus. 6. Metabolic acidosis secondary to acute kidney injury maintained on oral sodium bicarbonate. Plan: Maintain LR at 40 mL an hour. Hold Demadex. Check postvoid residual to make sure no underlying urinary retention. Monitor bicarb. Repeat electrolytes in the morning. No urgency for renal replacement therapy at this time. Thank you for the consultation. I will continue to follow the patient with you during his hospital stay.
--- NOTE | 2018-10-28 14:30 | PN ---
PROGRESS NOTE DATE OF SERVICE: 10/28/2018 CHIEF COMPLAINT: Colonic injury intraoperatively. HISTORY OF PRESENT ILLNESS: This gentleman is doing well. He has some mild abdominal wall discomfort from the surgery. He has had no chills or fever. He has had no shortness of breath or chest pain. PHYSICAL EXAM: Chest is clear. Cardiac exam is normal. Bowel sounds are heard. Dressings are dry. IMPRESSION: 1. Intraoperative injury to colon. 2. Status post cholecystectomy. 3. Chronic renal failure. 4. Hypertension. 5. Type 2 insulin-dependent diabetes mellitus. PLAN: No change in program at this time and continue to monitor abdominal pain, white count and temperature. MMODL / IJN: [id number] /
--- NOTE | 2018-10-28 14:59 | CDI ---
Documentation Clarification Form Date: 10/28/2018 2:43:05 PM From: Yanique Padilla RN< CCDS Admit Date: 10/27/2018 4:54:00 PM Patient Name: Jeremiah Neff Visit Number: [id number] Discharge Date: ATTENTION: The Clinical Documentation Specialists (CDI) and [facility] Coding Staff appreciate your assistance in clarifying documentation. Please respond to the clarification below the line at the bottom and electronically sign. The CDI & [facility] Coding staff will review the response and follow-up if needed. Please note: Queries are made part of the Legal Health Record. If you have any questions, please contact the author of this message via ITS. Dr. Kim Mcdowell Enterotomy Repair is documented in the Procedure Report. Patients Admitting Diagnosis: Symptomatic cholelithiasis Post-Operative Diagnosis: Symptomatic cholelithiasis, Enterotomy, Dense adhesions throughout abdomen. Procedure performed: Laparoscopic cholecystectomy; Laparotomy with primary repair of enterotomy. History/Risk Factors: Clinical Indicators: The lysis of adhesion took approximately 45 Minutes Extensive lysis of adhesions Treatment: Enterotomy repair with 2 layer format suture . Consults: Internal Medicine; Nephrology; In order to accurately reflect this patients severity of illness, please clarify if the post-operative diagnosis is: * An expected surgical condition related to extensive Lysis of Adhesions An expected surgical condition related to extensive Lysis of Adhesions. MTDD
[2018-10-28] MEDS: GABAPENTIN 100 MG CAP PO SCH ×2 (16:12→22:10)
[2018-10-28 17:07] LABS: Glucose,Whole Blood 149 mg/dL (75-99)
--- NOTE | 2018-10-28 17:21 | CONS ---
CONSULTATION CHIEF COMPLAINT: Inadvertent injury to colon during laparoscopic cholecystectomy. HISTORY OF PRESENT ILLNESS: This gentleman is admitted for IV antibiotics and observation after the colon was injured at the time of surgery due to extensive scar tissue. At the present time, he has no fever, chills, nausea, etc. REVIEW OF SYMPTOMS: Review of systems is otherwise normal. PAST MEDICAL HISTORY: He does have renal failure and diabetes, but diabetes has been under fairly good control of late. He is followed by Nephrology. REVIEW OF SYSTEMS: He is not experiencing any headache, neurologic problems, difficulty with vision or hearing, chest pain, shortness of breath, pain in the top of the right shoulder, nausea, melena, hematochezia, dysuria, frequency, etc. He is diabetic. His past medical history, family history, and personal and social histories reveal that he is on a calcium, vitamin D, NovoLog 12 units before breakfast, 8 for lunch and 12 before dinner, Lipitor 10 q.h.s., amlodipine 5 mg once a day, Isordil 10 mg once a day, Lantus 38 units once a day, oxybutynin 5 mg once a day, 10 mg once a day, gabapentin 100 mg twice a day, sodium bicarb 650 three a day, iron 325 once a day. Levothyroxine 0.075 once a day, aspirin 81 mg a day. The remainder of the history is essentially unremarkable except for his history of hypertension, diabetes and renal failure. He never smoked. He does not drink. PHYSICAL EXAM: Blood pressure 150/70 with a pulse of 80 and regular. Respirations are 20 and temperature 97.8. In general, he appeared to be overweight and in no acute distress. Skin color is normal. Skin is warm, dry. Lymph nodes are not enlarged. Head, ears, eyes, nose, mouth, and throat were normal. Neck veins not distended. Thyroid not enlarged. Chest is clear. Breath sounds are heard on both sides. Cardiac exam is normal sinus rhythm. The abdomen is slightly protuberant and bowel sounds are heard. Surgical sites are clean. Extremities are normal. Neurological is intact. IMPRESSION: 1. Status post colonic injuries secondary to cholecystectomy. 2. Hypertension. 3. Type 2 insulin dependent diabetes mellitus. 4. Stage IIIB chronic kidney disease. PLAN: 1. Bed rest. 2. IV fluids. 3. Nephrology consult. 4. IV antibiotics. MMODL / IJN: [id number] /
[2018-10-28] MEDS: MONTELUKAST 10 MG TAB PO SCH (17:43)
[2018-10-28 21:16] LABS: Glucose,Whole Blood 138 mg/dL (75-99)
[2018-10-29] MEDS: HEPARIN SODIUM,PORCINE 5,000 UNIT/ML 1 ML VIAL SQ SCH ×3 (01:07→15:41)
[2018-10-29 07:30] LABS: Glucose,Whole Blood 123 mg/dL (75-99)
[2018-10-29] MEDS ORDERED: INSULIN ASPART (NovoLOG) 100 UNIT/ML VIAL SQ SCH (07:30)
[2018-10-29] MEDS ORDERED: INSULIN DETEMIR (LEVEMIR) 100 UNIT/ML SYR SQ SCH (07:30)
[2018-10-29] MEDS: INSULIN ASPART (NovoLOG) 100 UNIT/ML VIAL SQ SCH ×4 (07:54→22:19)
[2018-10-29 07:57] LABS: Albumin 3.8 g/dL (3.5-5.0); Basophils # (A) 0.1 k/uL (0-0.2); Basophils % (A) 1 %; Calcium 9.7 mg/dL (8.4-10.2); Eosinophils # (A) 0.4 k/uL (0-0.7); Eosinophils % (A) 3 %; HGB 12.3 gm/dL (13.0-17.5); Lymphocytes # (A) 2.1 k/uL (1.0-4.8); Lymphocytes % (A) 21 %; MCH 28.9 pg (25.0-35.0); MCHC 33.3 g/dL (31.0-37.0); MCV 86.8 fL (80.0-100.0); Magnesium 1.9 mg/dL (1.6-2.3); Mean Platelet Volume 7.3; Monocytes # (A) 0.6 k/uL (0-1.0); Monocytes % (A) 6 %; Neutrophils # (A) 6.8 k/uL (1.3-7.7); Neutrophils % (A) 68 %; Platelet Count 177 k/uL (150-450); RBC 4.27 m/uL (4.30-5.90); RDW 14.6 % (11.5-15.5); Total Bilirubin 0.8 mg/dL (0.2-1.3); Total Protein 6.7 g/dL (6.3-8.2); WBC 10.1 k/uL (3.8-10.6)
[2018-10-29] MEDS: DOCUSATE 100 MG CAP PO SCH ×2 (08:07→20:40)
[2018-10-29] MEDS: CHOLECALCIFEROL 1,000 UNIT TAB PO SCH (08:07)
[2018-10-29] MEDS: SODIUM BICARBONATE TAB 650 MG TAB PO SCH ×3 (08:07→20:40)
[2018-10-29] MEDS: ISOSORBIDE MONONITRATE 10 MG TAB PO SCH (08:07)
[2018-10-29] MEDS: FERROUS SULFATE 325 MG TAB PO SCH (08:07)
[2018-10-29] MEDS: OXYBUTYNIN CHLORIDE 5 MG TAB PO SCH (08:08)
[2018-10-29] MEDS: LEVOTHYROXINE 75 MCG TAB PO SCH (08:08)
[2018-10-29] MEDS: PANTOPRAZOLE 40 MG/10 ML VIAL IV SCH (08:08)
[2018-10-29] MEDS: ATORVASTATIN 10 MG TAB PO SCH (08:08)
[2018-10-29] MEDS: GABAPENTIN 300 MG CAP PO SCH (08:08)
--- NOTE | 2018-10-29 10:45 | P.PN ---
Subjective Progress Note Date: 10/29/18 Principal diagnosis: This is a 78-year-old seen in consultation because of acute kidney injury after having undergone a lap cholecystectomy. His creatinine continues to go up. His diuretics were discontinued. Creatinine continues to go up slowly from 3.072 3.2 this morning. Urine output is 1150 with an intake of 1570. Patient denies any shortness of breath has mild cough. No nausea vomiting has mild abdominal pain from the scar. No dizziness. He has low-grade temperature 99.5 this morning. No sweating. Appetite is fair History of present illness: Patient is a 78-year-old male seen in renal consultation for acute kidney injury on chronic kidney disease. Patient has chronic kidney disease stage IV secondary to diabetic kidney disease with baseline creatinine near 2.5. Creatinine was 2.07 on admission and is 3.09 today. Patient presented to the hospital due to abdominal pain and underwent laparoscopic cholecystectomy with repair of enterotomy on October 27. He is currently sitting up in chair. Oral intake is good. He is on clear liquid diet. Denies chest pain or shortness of breath. No edema. He is maintained on Demadex 40 mg daily. No edema. No v omiting or diarrhea. No evidence of hypotension. He has been voiding. No hematuria or dysuria. No active complaints at this time. Objective - Vital Signs Vital signs: Vital Signs Temp 99.5 F 10/29/18 08:05 Pulse 70 10/29/18 08:07 Resp 15 10/29/18 08:07 BP 167/69 10/29/18 08:05 Pulse Ox 92 L 10/29/18 08:05 Intake & Output 10/28/18 10/29/18 10/29/18 18:59 06:59 18:59 Intake Total 600 970 Output Total 1180 210 30 Balance -580 760 -30 Weight 86.183 kg Intake: Intake, IV Titration 320 Amount Lactated Ringers 1,000 ml 320 @ 40 mls/hr IV .Q24H SANDI Rx#:[id number] Oral 600 650 Output: Drainage 30 10 30 Anterior Abdomen 30 10 30 Urine 950 200 Post Void Residual 200 Other: Voiding Method Urinal Toilet Toilet # Voids 1 On examination is awake alert oriented comfortable sitting in a chair reading newspaper HEENT exam no JVP neck is supple no facial asymmetry Lungs are significant for bilateral fine crackles not clear but cough. Heart sounds are unremarkable for murmur rub gallop Abdomen soft minimally tender at the site of surgery Extreme exam was no edema Neuro logically awake alert oriented - Labs CBC & Chem 7: 10/29/18 06:53 10/29/18 06:53 Labs: Abnormal Lab Results - Last 24 Hours (Table) 10/28/18 10/28/18 10/28/18 Range/Units 12:16 16:56 21:00 RBC (4.30-5.90) m/uL Hgb (13.0-17.5) gm/dL Hct (39.0-53.0) % BUN (9-20) mg/dL Creatinine (0.66-1.25) mg/dL Glucose (74-99) mg/dL POC Glucose (mg/dL) 217 H 149 H 138 H (75-99) mg/dL 10/29/18 10/29/18 10/29/18 Range/Units 06:53 06:53 07:27 RBC 4.27 L (4.30-5.90) m/uL Hgb 12.3 L (13.0-17.5) gm/dL Hct 37.0 L (39.0-53.0) % BUN 56 H (9-20) mg/dL Creatinine 3.20 H (0.66-1.25) mg/dL Glucose 109 H (74-99) mg/dL POC Glucose (mg/dL) 123 H (75-99) mg/dL Assessment and Plan Assessment: Impression 1. Mild increase in creatinine, acute kidney injury likely from prerenal. Because of the low-grade temperature and by basilar crackle will obtain a chest x-ray 2. Non-gap acidosis controlled on bicarb 3. Chronic kidney disease, stage IV, diabetic nephropathy baseline creatinine 2.5 functioning AV fistula left upper arm. 4. Insulin-dependent diabetes mellitus. 5. Status post lap jennifer and repair of enterotomy on 10/27/2018 2 days ago Recommendation 1. Will obtain chest x-ray to rule out pneumonia because of the fever and the bilateral crackles 2. Strict I's and O's 3. On digital labs tomorrow
--- NOTE | 2018-10-29 11:27 | XR ---
EXAMINATION TYPE: XR chest 2V DATE OF EXAM: 10/29/2018 COMPARISON: NONE HISTORY: Shortness of breath TECHNIQUE: Frontal and lateral views of the chest are obtained. FINDINGS: Scattered senescent parenchymal changes noted. Hyperinflation compatible with COPD. No evidence for infiltrate. No evidence for atelectasis. Heart size is stable. Mediastinal structures are stable and grossly unremarkable. No evidence for hilar prominence. Degenerative changes dorsal spine. IMPRESSION: 1. No evidence for acute pulmonary disease.
--- NOTE | 2018-10-29 11:50 | P.PN ---
Subjective Progress Note Date: 10/29/18 Principal diagnosis: Postoperative laparoscopic cholecystectomy and repair of enterotomy The patient's postop upper scopic cholecystectomy with repair of enterotomy. He had multiple intra-abdominal adhesions. He was started on clear liquid diet and tolerated that yesterday evening and this morning. No nausea or vomiting. Pain is well-controlled. He's been ambulating in the [facility]. Objective - Vital Signs Vital signs: Vital Signs Temp 99.5 F 10/29/18 08:05 Pulse 70 10/29/18 08:07 Resp 15 10/29/18 08:07 BP 167/69 10/29/18 08:05 Pulse Ox 92 L 10/29/18 08:05 Intake & Output 10/28/18 10/29/18 10/29/18 18:59 06:59 18:59 Intake Total 600 970 Output Total 1180 210 240 Balance -580 760 -240 Weight 86.183 kg Intake: Intake, IV Titration 320 Amount Lactated Ringers 1,000 ml 320 @ 40 mls/hr IV .Q24H SANDI Rx#:[id number] Oral 600 650 Output: Drainage 30 10 30 Anterior Abdomen 30 10 30 Urine 950 200 210 Post Void Residual 200 Other: Voiding Method Urinal Toilet Toilet # Voids 1 - Constitutional General appearance: Present: cooperative, no acute distress - Respiratory Respiratory: bilateral: CTA - Gastrointestinal General gastrointestinal: Present: decreased bowel sounds, soft Localized gastrointestinal: surgical scar: diffuse (Incisions are intact clean and dry. Minimal ecchymosis. DANIEL is serosanguineous) - Labs CBC & Chem 7: 10/29/18 06:53 10/29/18 06:53 Labs: Abnormal Lab Results - Last 24 Hours (Table) 10/28/18 10/28/18 10/28/18 Range/Units 12:16 16:56 21:00 RBC (4.30-5.90) m/uL Hgb (13.0-17.5) gm/dL Hct (39.0-53.0) % BUN (9-20) mg/dL Creatinine (0.66-1.25) mg/dL Glucose (74-99) mg/dL POC Glucose (mg/dL) 217 H 149 H 138 H (75-99) mg/dL 04/20/19 04/20/19 04/20/19 Range/Units 06:53 06:53 07:27 RBC 4.27 L (4.30-5.90) m/uL Hgb 12.3 L (13.0-17.5) gm/dL Hct 37.0 L (39.0-53.0) % BUN 56 H (9-20) mg/dL Creatinine 3.20 H (0.66-1.25) mg/dL Glucose 109 H (74-99) mg/dL POC Glucose (mg/dL) 123 H (75-99) mg/dL Assessment and Plan (1) Cholelithiases Current Visit: Yes Status: Acute Code(s): K80.20 - CALCULUS OF GALLBLADDER W/O CHOLECYSTITIS W/O OBSTRUCTION SNOMED Code(s): 125500653 Plan: We will advance his diet. Continue to monitor the drain. Nephrology evaluation appreciated. Progressing slowly.
[2018-10-29 12:17] LABS: Glucose,Whole Blood 139 mg/dL (75-99)
--- NOTE | 2018-10-29 14:46 | PN ---
PROGRESS NOTE CHIEF COMPLAINT: Status post cholecystectomy with of colon. HISTORY OF PRESENT ILLNESS: This gentleman is doing well. He states he gets a slight chill, but his temperature has been essentially normal. White count is stable. Blood sugars are good. PHYSICAL EXAM: Chest is clear. Cardiac exam is normal. IMPRESSION: Status post cholecystectomy with perforation of colon. PLAN: No change in program and continue with conservative management. MMODL / IJN: [id number] /
[2018-10-29 17:19] LABS: Glucose,Whole Blood 185 mg/dL (75-99)
[2018-10-29] MEDS: GABAPENTIN 100 MG CAP PO SCH ×2 (17:35→20:44)
[2018-10-29] MEDS: MONTELUKAST 10 MG TAB PO SCH (17:35)
[2018-10-29] MEDS: LACTATED RINGERS 1,000 ML IV SCH ×2 (19:21→20:40)
[2018-10-29 21:16] LABS: Glucose,Whole Blood 203 mg/dL (75-99)
[2018-10-30] MEDS: HEPARIN SODIUM,PORCINE 5,000 UNIT/ML 1 ML VIAL SQ SCH ×4 (00:21→22:56)
[2018-10-30] MEDS: LEVOTHYROXINE 75 MCG TAB PO SCH (06:06)
[2018-10-30 07:30] LABS: Glucose,Whole Blood 151 mg/dL (75-99)
[2018-10-30] MEDS: INSULIN ASPART (NovoLOG) 100 UNIT/ML VIAL SQ SCH ×4 (07:39→20:35)
[2018-10-30] MEDS: ATORVASTATIN 10 MG TAB PO SCH (07:42)
[2018-10-30] MEDS: ISOSORBIDE MONONITRATE 10 MG TAB PO SCH (07:42)
[2018-10-30] MEDS: GABAPENTIN 300 MG CAP PO SCH (07:42)
[2018-10-30] MEDS: DOCUSATE 100 MG CAP PO SCH ×2 (07:42→20:11)
[2018-10-30] MEDS: SODIUM BICARBONATE TAB 650 MG TAB PO SCH ×3 (07:42→20:10)
[2018-10-30] MEDS: FERROUS SULFATE 325 MG TAB PO SCH (07:42)
[2018-10-30] MEDS: PANTOPRAZOLE 40 MG TABLET PO SCH (07:42)
[2018-10-30] MEDS: OXYBUTYNIN CHLORIDE 5 MG TAB PO SCH (07:42)
[2018-10-30] MEDS: CHOLECALCIFEROL 1,000 UNIT TAB PO SCH (07:42)
--- NOTE | 2018-10-30 09:31 | P.PN ---
Progress Note - Text Progress Note Date: 10/30/18 The patient is status post laparoscopic cholecystectomy and repair of enterotomy. He's doing well. Tolerating a diet. No nausea or vomiting. Vital signs stable, afebrile Abdomen soft, good bowel sounds, DANIEL is serosanguineous. Patient's progressing well. Likely discharge tomorrow.
--- NOTE | 2018-10-30 09:47 | P.PN ---
Subjective Progress Note Date: 10/30/18 Principal diagnosis: This is a 78-year-old seen in consultation because of acute kidney injury after having undergone a lap cholecystectomy. His creatinine continues to go up. His diuretics were discontinued. Creatinine continues to go up slowly from 3.07 to 3.2 yesterday morning, lab this morning is not available. Urine output is documented at 285 mL with an intake of 620 and not sure of the accuracy of this. He is afebrile last high temperature is 99.5 yesterday morning at 8:00 in the morning. He has a fair appetite no nausea vomiting no fever chills cough shortness of breath. No diarrhea. Abdominal pain is much better Patient denies any shortness of breath has mild cough. No nausea vomiting has mild abdominal pain from the scar. No dizziness. He has low-grade temperature 99.5 this morning. No sweating. Appetite is fair History of present illness: Patient is a 78-year-old male seen in renal consultation for acute kidney injury on chronic kidney disease. Patient has chronic kidney disease stage IV secondary to diabetic kidney disease with baseline creatinine near 2.5. Creatinine was 2.07 on admission and is 3.09 today. Patient presented to the [facility] due to abdominal pain and underwent laparoscopic cholecystectomy with repair of enterotomy on October 27. Objective - Vital Signs Vital signs: Vital Signs Temp 98.4 F 10/30/18 07:13 Pulse 68 10/30/18 07:42 Resp 15 10/30/18 07:42 BP 162/73 10/30/18 07:13 Pulse Ox 95 10/30/18 07:13 Intake & Output 10/29/18 10/30/18 10/30/18 18:59 06:59 18:59 Intake Total 280 340 420 Output Total 255 30 Balance 25 310 420 Intake: Intake, IV Titration 280 40 Amount Lactated Ringers 1,000 ml 280 40 @ 40 mls/hr IV .Q24H SANDI Rx#:[id number] Oral 300 420 Output: Drainage 45 30 Right Anterior Abdomen 45 30 Urine 210 Other: Voiding Method Toilet Toilet Toilet Urinal # Voids 2 1 On exam he is sitting out comfortable in a chair. HEENT exam no JVP neck is supple no facial asymmetry Lungs are clear with few coarse crackle at bases that improve with cough but did not clearly completely Her sounds are unremarkable for any murmur rub gallop Abdomen soft nontender slightly obese and protuberant Extremity exam was no edema Neurologically awake alert oriented comfortable - Labs CBC & Chem 7: 10/29/18 06:53 10/29/18 06:53 Labs: Abnormal Lab Results - Last 24 Hours (Table) 10/29/18 10/29/18 10/29/18 Range/Units 12:15 17:17 21:06 POC Glucose (mg/dL) 139 H 185 H 203 H (75-99) mg/dL 10/30/18 Range/Units 07:28 POC Glucose (mg/dL) 151 H (75-99) mg/dL Assessment and Plan Assessment: Impression 1. Mild increase in creatinine, acute kidney injury likely from prerenal. Expect creatinine to stabilize or improve labs are pending this morning 2. Chest x-ray is unremarkable which was obtained Because of the low-grade temperature and by basilar crackle 2. Non-gap acidosis controlled on bicarb, bicarb improved to 25 yesterday from 18 baby 4 yesterday 3. Chronic kidney disease, stage IV, diabetic nephropathy baseline creatinine 2.5 functioning AV fistula left upper arm. 4. Insulin-dependent diabetes mellitus. 5. Status post lap jennifer and repair of enterotomy on 10/27/2018 Recommendation 1. Will obtain labs today and tomorrow. 2. Strict I's and os. 3. Watch labs including bicarb and creatinine
[2018-10-30 11:05] LABS: Calcium 9.3 mg/dL (8.4-10.2); Potassium 4.2 mmol/L (3.5-5.1)
[2018-10-30 12:06] LABS: Glucose,Whole Blood 176 mg/dL (75-99)
[2018-10-30] MEDS: GABAPENTIN 100 MG CAP PO SCH ×2 (16:37→20:10)
[2018-10-30] MEDS: MONTELUKAST 10 MG TAB PO SCH (16:40)
[2018-10-30 17:35] LABS: Glucose,Whole Blood 190 mg/dL (75-99)
[2018-10-30] MEDS: LACTATED RINGERS 1,000 ML IV SCH (20:11)
[2018-10-30 20:29] LABS: Glucose,Whole Blood 253 mg/dL (75-99)
[2018-10-31] MEDS: LEVOTHYROXINE 75 MCG TAB PO SCH (05:01)
[2018-10-31 07:14] LABS: Glucose,Whole Blood 195 mg/dL (75-99)
[2018-10-31] MEDS ORDERED: CALCITRIOL 0.25 MCG CAP PO SCH (09:00)
[2018-10-31] MEDS ORDERED: POLYETHYLENE GLYCOL 3350 17 GM POWD.PACK PO STA (09:11)
[2018-10-31] MEDS: HEPARIN SODIUM,PORCINE 5,000 UNIT/ML 1 ML VIAL SQ SCH ×2 (09:25→16:53)
[2018-10-31] MEDS: SODIUM BICARBONATE TAB 650 MG TAB PO SCH ×3 (09:25→21:23)
[2018-10-31] MEDS: DOCUSATE 100 MG CAP PO SCH ×2 (09:26→21:23)
[2018-10-31] MEDS: OXYBUTYNIN CHLORIDE 5 MG TAB PO SCH (09:26)
[2018-10-31] MEDS: CHOLECALCIFEROL 1,000 UNIT TAB PO SCH (09:26)
[2018-10-31] MEDS: FERROUS SULFATE 325 MG TAB PO SCH (09:26)
[2018-10-31] MEDS: ATORVASTATIN 10 MG TAB PO SCH (09:26)
[2018-10-31] MEDS: ISOSORBIDE MONONITRATE 10 MG TAB PO SCH (09:26)
[2018-10-31] MEDS: GABAPENTIN 300 MG CAP PO SCH (09:26)
[2018-10-31] MEDS: PANTOPRAZOLE 40 MG TABLET PO SCH (09:26)
[2018-10-31] MEDS: INSULIN ASPART (NovoLOG) 100 UNIT/ML VIAL SQ SCH ×4 (09:27→21:24)
--- NOTE | 2018-10-31 11:20 | P.PN ---
Subjective Patient is seen in follow-up for acute kidney injury on chronic any disease. Patient has chronic kidney disease stage IV secondary to diabetic kidney disease. Baseline creatinine near 2.5. Creatinine peaked at 3.2 this admission and was 2.96 as of yesterday. No edema. Urine output is good. Oral intake is good. Admits to constipation. He did get MiraLAX this morning. Vital signs are stable. General: The patient appeared well nourished and normally developed. HEENT: Head exam is unremarkable. Neck is without jugular venous distension. LUNGS: Lungs are clear to auscultation and percussion. Breath sounds decreased. HEART: Rate and Rhythm are regular. First and second heart sounds normal. No murmurs, rubs or gallops. ABDOMEN: Abdominal exam reveals normal bowel sounds. Non-tender and non- distended. No evidence of peritonitis. EXTREMITITES: No clubbing, cyanosis, or edema. Objective - Vital Signs Vital signs: Vital Signs Temp 98.1 F 10/31/18 07:00 Pulse 69 10/31/18 07:00 Resp 16 10/31/18 08:00 BP 164/81 10/31/18 07:00 Pulse Ox 96 10/31/18 07:00 Intake & Output 10/30/18 10/31/18 10/31/18 18:59 06:59 18:59 Intake Total 660 620 350 Output Total 10 Balance 660 610 350 Intake: Intake, IV Titration 80 Amount Lactated Ringers 1,000 ml 80 @ 40 mls/hr IV .Q24H SANDI Rx#:[id number] Oral 660 540 350 Output: Drainage 10 Right Anterior Abdomen 10 Other: Voiding Method Toilet Toilet Urinal # Voids 10 1 - Labs CBC & Chem 7: 10/29/18 06:53 10/30/18 10:32 Labs: Abnormal Lab Results - Last 24 Hours (Table) 10/30/18 10/30/18 10/30/18 Range/Units 12:01 17:33 20:18 POC Glucose (mg/dL) 176 H 190 H 253 H (75-99) mg/dL 10/31/18 Range/Units 07:01 POC Glucose (mg/dL) 195 H (75-99) mg/dL Assessment and Plan Plan: Assessment: 1. Acute kidney injury mostly prerenal secondary to diuretics. Creatinine 2.9 as of yesterday. 2. Chronic kidney disease stage IV secondary to diabetic kidney disease. Bas roscoe creatinine near 2.5. Patient has a functioning AV fistula in the left upper extremity. He is also interested in peritoneal dialysis. 3. Chronic kidney disease mineral bone disease maintained on calcitriol. 4. Status post laparoscopic cholecystectomy and repair of enterotomy on October 27. 5. Insulin-dependent diabetes mellitus. 6. Metabolic acidosis secondary to acute kidney injury maintained on oral sodium bicarbonate. Plan: Continue to hold diuretics. Avoid nephrotoxins. May use lactulose if remains constipated. Avoid Fleet enemas.
[2018-10-31 13:15] LABS: Glucose,Whole Blood 156 mg/dL (75-99)
[2018-10-31] MEDS ORDERED: INSULIN DETEMIR (LEVEMIR) 100 UNIT/ML SYR SQ SCH (14:00)
[2018-10-31 16:10] VITALS: RESP 16
[2018-10-31] MEDS: GABAPENTIN 100 MG CAP PO SCH ×2 (16:54→21:23)
[2018-10-31] MEDS: MONTELUKAST 10 MG TAB PO SCH (16:58)
[2018-10-31 17:04] LABS: Glucose,Whole Blood 179 mg/dL (75-99)
--- NOTE | 2018-10-31 17:16 | PN ---
PROGRESS NOTE CHIEF COMPLAINT: Status post cholecystectomy and violation of the colon. HISTORY OF PRESENT ILLNESS: This gentleman is doing well. Temp has been down. He is eating. He still has not had a bowel movement. PHYSICAL EXAM: Chest is clear. Cardiac exam is normal and the abdomen is slightly protuberant and soft. IMPRESSION: Status post cholecystectomy, perforated colon. PLAN: Home whenever released by surgery. MMODL / IJN: [id number] /
--- NOTE | 2018-10-31 17:31 | PN ---
PROGRESS NOTE DATE OF SERVICE: 10/30/2018. CHIEF COMPLAINT: Status post cholecystectomy with perforation of the colon. HISTORY OF PRESENT ILLNESS: This gentleman is doing well and he feels good. He is not having a great deal of abdominal discomfort, and this is probably incisional. He has had no fever, chills, vomiting, diarrhea, etc. PHYSICAL EXAMINATION: Chest is clear. Cardiac exam is normal. Abdomen is soft, nontender. IMPRESSION: 1. Status post cholecystectomy with damage to the large bowel. 2. Diabetes. 3. Renal failure. PLAN: Continue on current program. He will go home once he has had a bowel movement. He is passing gas. MMODL / IJN: [id number] /
--- NOTE | 2018-10-31 17:32 | P.PN ---
Subjective Progress Note Date: 10/31/18 Patient seen and examined at bedside. States he is feeling well. Denies any nausea vomiting. Complains of constipation. Passing flatus. Objective - Vital Signs Vital signs: Vital Signs Temp 97.8 F 10/31/18 14:44 Pulse 70 10/31/18 14:44 Resp 16 10/31/18 16:00 BP 138/70 10/31/18 14:44 Pulse Ox 96 10/31/18 14:44 Intake & Output 10/30/18 10/31/18 10/31/18 18:59 06:59 18:59 Intake Total 660 620 590 Output Total 10 Balance 660 610 590 Intake: Intake, IV Titration 80 Amount Lactated Ringers 1,000 ml 80 @ 40 mls/hr IV .Q24H SADNI Rx#:[id number] Oral 660 540 590 Output: Drainage 10 Right Anterior Abdomen 10 Other: Voiding Method Toilet Toilet Urinal # Voids 10 1 2 # Bowel Movements 0 - Constitutional General appearance: Present: cooperative, no acute distress - EENT Eyes: Present: PERRLA - Respiratory Details: No difficulty with respiration - Gastrointestinal Gastrointestinal Comment(s): Soft, nontender, nondistended, no rebound, no guarding, incision sites are clean, dry and intact - Psychiatric Psychiatric: Present: A&O x's 3 - Labs CBC & Chem 7: 10/29/18 06:53 10/30/18 10:32 Labs: Abnormal Lab Results - Last 24 Hours (Table) 10/30/18 10/30/18 10/31/18 Range/Units 17:33 20:18 07:01 POC Glucose (mg/dL) 190 H 253 H 195 H (75-99) mg/dL 10/31/18 10/31/18 Range/Units 13:14 16:50 POC Glucose (mg/dL) 156 H 179 H (75-99) mg/dL Assessment and Plan Plan: 78-year-old male postoperative from laparoscopic cholecystectomy, extensive lysis of adhesions and enterotomy repair - The patient is doing well today. - Patient is concerned about constipation. He is passing flatus. We will attempt laxatives. The patient has requested an additional night in the hospital due to constipation. Plan for discharge tomorrow.
[2018-10-31 21:11] LABS: Glucose,Whole Blood 287 mg/dL (75-99)
[2018-10-31] MEDS: LACTULOSE 20 GM/30 ML CUP PO SCH (21:24)
[2018-10-31] MEDS: LACTATED RINGERS 1,000 ML IV SCH (21:24)
[2018-11-01] MEDS: HEPARIN SODIUM,PORCINE 5,000 UNIT/ML 1 ML VIAL SQ SCH ×2 (00:51→08:48)
[2018-11-01] MEDS: LEVOTHYROXINE 75 MCG TAB PO SCH (05:32)
[2018-11-01 05:54] VITALS: BP 158/69; PULSE 73; TEMP 98.6
--- NOTE | 2018-11-01 06:57 | P.DS ---
Providers Date of admission: 10/27/18 16:54 Attending physician: Kim Mcdowell DO Consults: 10/27/18 15:59 Consult Physician Routine Consulting Provider: Usman Mena Reason/Comments: pt known to you Do you want consulting provider notified?: Yes 10/27/18 18:16 Consult Physician Routine Consulting Provider: Nicole Mariscal Reason/Comments: Renal insufficiency Do you want consulting provider notified?: Yes Primary care physician: Usman Mena Hospital Course: Patient presented for an elective laparoscopic cholecystectomy. Surgery was performed and there was concern for an enterotomy during an extensive lysis of adhesions. Primary repair of small bowel was performed. Postoperatively, the patient was sent to the medical surgical unit. He progressed very well over the next few days. His diet was advanced and the patient began having bowel function. Pain was well-controlled throughout the admission and the patient did not require any narcotic pain medication. The patient is ambulating and states he is feeling very well. Denied any nausea or vomiting. He was seen by nephrology and medicine during his admission. He is surgically stable for discharge. Procedures: Laparoscopic cholecystectomy Extensive lysis of adhesions Primary repair of enterotomy Patient Condition at Discharge: Fair Plan - Discharge Summary Discharge Rx Participant: No New Discharge Prescriptions: Continue Torsemide [Demadex] 40 mg PO DAILY Sodium Bicarbonate 650 mg PO TID Montelukast [Singulair] 10 mg PO W/SUPPER Aspirin [Adult Low Dose Aspirin EC] 81 mg PO DAILY Acetaminophen [Tylenol] 1,000 mg PO QAM Atorvastatin [Lipitor] 10 mg PO DAILY Calcitriol 0.25 mcg PO MO Cholecalciferol [Vitamin D3] 2,000 unit PO DAILY Ferrous Sulfate [Iron] 325 mg PO DAILY Gabapentin [Neurontin] 100 mg PO BID@1700,2300 Insulin Glargine [Lantus] 38 unit SQ W/BRKFST Insulin Lispro [humaLOG Kwikpen] 8 unit SQ W/LUNCH Insulin Lispro [humaLOG Kwikpen] 12 unit SQ W/BRKFST Insulin Lispro [humaLOG Kwikpen] 12 unit SQ W/SUPPER Isosorbide Mononitrate [Ismo] 10 mg PO DAILY Levothyroxine Sodium [Synthroid] 75 mcg PO DAILY Oxybutynin Chloride [Ditropan] 5 mg PO DAILY Gabapentin [Neurontin] 300 mg PO TID Discharge Medication List Aspirin [Adult Low Dose Aspirin EC] 81 mg PO DAILY 01/07/17 [History] Montelukast [Singulair] 10 mg PO W/SUPPER 01/07/17 [History] Sodium Bicarbonate 650 mg PO TID 01/07/17 [History] Torsemide [Demadex] 40 mg PO DAILY 01/07/17 [History] Acetaminophen [Tylenol] 1,000 mg PO QAM 10/18/18 [History] Atorvastatin [Lipitor] 10 mg PO DAILY 10/18/18 [History] Calcitriol 0.25 mcg PO MO 10/18/18 [History] Cholecalciferol [Vitamin D3] 2,000 unit PO DAILY 10/18/18 [History] Ferrous Sulfate [Iron] 325 mg PO DAILY 10/18/18 [History] Gabapentin [Neurontin] 100 mg PO BID@1700,2300 10/18/18 [History] Insulin Glargine [Lantus] 38 unit SQ W/BRKFST 10/18/18 [History] Insulin Lispro [humaLOG Kwikpen] 8 unit SQ W/LUNCH 10/18/18 [History] Insulin Lispro [humaLOG Kwikpen] 12 unit SQ W/BRKFST 10/18/18 [History] Insulin Lispro [humaLOG Kwikpen] 12 unit SQ W/SUPPER 10/18/18 [History] Isosorbide Mononitrate [Ismo] 10 mg PO DAILY 10/18/18 [History] Levothyroxine Sodium [Synthroid] 75 mcg PO DAILY 10/18/18 [History] Oxybutynin Chloride [Ditropan] 5 mg PO DAILY 10/18/18 [History] Gabapentin [Neurontin] 300 mg PO TID 10/27/18 [History] Follow up Appointment(s)/Referral(s): Maulik Pyle DO [STAFF PHYSICIAN] - 1 Week Usman Mena MD [Primary Care Provider] - 1 Week Activity/Diet/Wound Care/Special Instructions: OK to ambulate Okay to shower Increase activity as tolerated Discharge Disposition: HOME SELF-CARE
[2018-11-01 07:30] LABS: Glucose,Whole Blood 150 mg/dL (75-99)
[2018-11-01] MEDS: PANTOPRAZOLE 40 MG TABLET PO SCH (08:47)
[2018-11-01] MEDS: ATORVASTATIN 10 MG TAB PO SCH (08:47)
[2018-11-01] MEDS: OXYBUTYNIN CHLORIDE 5 MG TAB PO SCH (08:47)
[2018-11-01] MEDS: FERROUS SULFATE 325 MG TAB PO SCH (08:48)
[2018-11-01] MEDS: SODIUM BICARBONATE TAB 650 MG TAB PO SCH (08:48)
[2018-11-01] MEDS: CHOLECALCIFEROL 1,000 UNIT TAB PO SCH (08:48)
[2018-11-01] MEDS: DOCUSATE 100 MG CAP PO SCH (08:53)
[2018-11-01] MEDS: INSULIN ASPART (NovoLOG) 100 UNIT/ML VIAL SQ SCH (08:53)
[2018-11-01] MEDS: GABAPENTIN 300 MG CAP PO SCH (08:53)
[2018-11-01] MEDS: LACTULOSE 20 GM/30 ML CUP PO SCH (08:54)
[2018-11-01] MEDS: ISOSORBIDE MONONITRATE 10 MG TAB PO SCH (08:54)
[2018-11-01 09:59] LABS: Calcium 9.5 mg/dL (8.4-10.2); Magnesium 1.7 mg/dL (1.6-2.3); Potassium 4.4 mmol/L (3.5-5.1)
--- NOTE | 2018-11-01 11:18 | P.PN ---
Subjective Patient is seen in follow-up for acute kidney injury on chronic any disease. Patient has chronic kidney disease stage IV secondary to diabetic kidney disease. Baseline creatinine near 2.5. Creatinine peaked at 3.2 this admission and was 2.52 today. No edema. Urine output is good. Oral intake is good. No active complaints at this time. Vital signs are stable. General: The patient appeared well nourished and normally developed. HEENT: Head exam is unremarkable. Neck is without jugular venous distension. LUNGS: Lungs are clear to auscultation and percussion. Breath sounds decreased. HEART: Rate and Rhythm are regular. First and second heart sounds normal. No murmurs, rubs or gallops. ABDOMEN: Abdominal exam reveals normal bowel sounds. Non-tender and non- distended. No evidence of peritonitis. EXTREMITITES: No clubbing, cyanosis, or edema. Objective - Vital Signs Vital signs: Vital Signs Temp 98.6 F 11/01/18 04:30 Pulse 73 11/01/18 04:30 Resp 16 11/01/18 04:30 BP 158/69 11/01/18 04:30 Pulse Ox 96 11/01/18 04:30 Intake & Output 10/31/18 11/01/18 11/01/18 18:59 06:59 18:59 Intake Total 590 Output Total 50 Balance 590 -50 Intake: Oral 590 Output: Drainage 50 Right Anterior Abdomen 50 Other: # Voids 1 3 # Bowel Movements 0 1 - Labs CBC & Chem 7: 10/29/18 06:53 11/01/18 09:11 Labs: Abnormal Lab Results - Last 24 Hours (Table) 10/31/18 10/31/18 10/31/18 Range/Units 13:14 16:50 21:10 Chloride (98-107) mmol/L Carbon Dioxide (22-30) mmol/L BUN (9-20) mg/dL Creatinine (0.66-1.25) mg/dL Glucose (74-99) mg/dL POC Glucose (mg/dL) 156 H 179 H 287 H (75-99) mg/dL 11/01/18 11/01/18 Range/Units 07:28 09:11 Chloride 109 H (98-107) mmol/L Carbon Dioxide 20 L (22-30) mmol/L BUN 46 H (9-20) mg/dL Creatinine 2.57 H (0.66-1.25) mg/dL Glucose 266 H (74-99) mg/dL POC Glucose (mg/dL) 150 H (75-99) mg/dL Assessment and Plan Plan: Assessment: 1. Acute kidney injury mostly prerenal secondary to diuretics. Renal function better. Creatinine 2.57 today. 2. Chronic kidney disease stage IV secondary to diabetic kidney disease. Baseline creatinine near 2.5. Patient has a functioning AV fistula in the left upper extremity. He is also interested in peritoneal dialysis. 3. Chronic kidney disease mineral bone disease maintained on calcitriol. 4. Status post laparoscopic cholecystectomy and repair of enterotomy on October 27. 5. Insulin-dependent diabetes mellitus. 6. Metabolic acidosis secondary to acute kidney injury maintained on oral sodium bicarbonate. Plan: Potential discharge today. He is to resume torsemide every other day after discharge. Follow up outpatient in the next 1 week.
--- NOTE | 2018-11-01 18:18 | DS ---
DISCHARGE SUMMARY CHIEF COMPLAINT: Status post cholecystectomy with inadvertent violation of the colon. HISTORY OF PRESENT ILLNESS: This gentleman is doing well. He did have a bowel movements this morning. He has had no abdominal pain, fever, chills, etc. He will be going home later today. PHYSICAL EXAM: Chest is clear. Cardiac exam is normal. IMPRESSION: Status post cholecystectomy and repair of inadvertent laceration. PLAN: Home and reassess in the office in a day or 2. MMODL / IJN: [id number] /
--- NOTE | 2018-11-03 12:38 | CDI ---
Documentation Clarification Form Date: 11/03/18 From: KAILA Kohli Phone: If you have question, contact Ev Carlisle at [phone] M-F 8:30 am to 6pm Admit Date: 10/27/2018 4:54:00 PM Patient Name: Jeremiah Neff Visit Number: [id number] Discharge Date: 11/01/2018 12:42:00 PM ATTENTION: The Clinical Documentation Specialists (CDI) and [facility] Coding Staff appreciate your assistance in clarifying documentation. Please respond to the clarification below the line at the bottom and electronically sign. The CDI & [facility] Coding staff will review the response and follow-up if needed. Please note: Queries are made part of the Legal Health Record. If you have any questions, please contact the author of this message via ITS. Dr. Kim Mcdowell During the adhesiolysis it is noted that a small enterotomy was made. It was repaired with 3-0 Vicryl suture in a 2 layer format. The specific site of the bowel that was repaired is not documented in the Operative Report. Throughout the progress notes large bowel and colon are mentioned as being the site of injury. Further clarification is needed for proper reporting purposes. In your professional opinion, can you please clarify the specific site of bowel injury? Appendix Ascending Colon Cecum Large Intestine, Left Large Intestine, Right Rectum Sigmoid Colon Transverse Colon Other, please specify Unable to determine ___ The enterotomy was noted in small bowel, likely jejunum. My notes did not mention the large bowel or colon. MTDD
--- NOTE | 2018-11-03 12:45 | CDI ---
Documentation Clarification Form Date: 11/03/18 From: KAILA Kohli Phone: If you have question, contact vE Carlisle at [phone] M-F 8:30 am to 6pm Admit Date: 10/27/2018 4:54:00 PM Patient Name: Jeremiah Neff Visit Number: [id number] Discharge Date: 11/01/2018 12:42:00 PM ATTENTION: The Clinical Documentation Specialists (CDI) and [facility] Coding Staff appreciate your assistance in clarifying documentation. Please respond to the clarification below the line at the bottom and electronically sign. The CDI & [facility] Coding staff will review the response and follow-up if needed. Please note: Queries are made part of the Legal Health Record. If you have any questions, please contact the author of this message via ITS. Dr. Kim Mcdowell Per the Operative Report adhesions were noted throughout the abdomen in bilateral lower quadrants and left upper quadrant. Adhesiolysis was performed. In your professional opinion, can you please clarify the body parts that were released during the adhesiolysis? Appendix Ascending Colon Cecum Descending colon Large Intestine, Left Large Intestine, Right Rectum Sigmoid Colon Transverse Colon Other, please specify Unable to determine Small bowel and omentum were released during the lysis of adhesions. MTDD
--- NOTE | 2018-11-07 18:29 | PN ---
PROGRESS NOTE DATE OF SERVICE: 10/31/2018 CHIEF COMPLAINT: Status post cholecystectomy with violation of the colon. HISTORY OF PRESENT ILLNESS: This gentleman continues to do well. He has had no fever and chills, etc. His white count is normal. He still has not had a bowel movement, which is a prerequisite to him being discharged. Blood sugars are good. PHYSICAL EXAM: Color is good. Chest is clear. Cardiac exam is normal. Extremities are normal. IMPRESSION: Status post cholecystectomy with injury to the colon. PLAN: Progress activity and diet. He should be able to go home soon. MMODL / IJN: [id number] /
== END 2018-11-01 12:42 | disposition home or self-care (01) | DRG 330 ==
LOC: OR 12:37 → 4SSUR 16:02 → OR 16:53 → 4SSUR 16:54 → 4MS4W 10-31 11:45
PROVIDERS: ADMIT Surgery; ATTEND Surgery
PROC: 0DN84ZZ Release Small Intestine, Percutaneous Endoscopic Approach (ICD-10-PCS; principal; 2018-10-27 14:00)
PROC: 0DNU4ZZ Release Omentum, Percutaneous Endoscopic Approach (ICD-10-PCS; principal; 2018-10-27 14:00)
PROC: 0DQA0ZZ Repair Jejunum, Open Approach (ICD-10-PCS; principal; 2018-10-27 14:00)
PROC: 0FT44ZZ Resection of Gallbladder, Percutaneous Endoscopic Approach (ICD-10-PCS; principal; 2018-10-27 14:00)
DX: S36.438A Laceration of other part of small intestine, initial encounter (principal); E87.2 Acidosis; N17.9 Acute kidney failure, unspecified; N18.4 Chronic kidney disease, stage 4 (severe); Y65.8 Other specified misadventures during surgical and medical care; Y73.3 Surgical instruments, materials and gastroenterology and urology devices (including sutures) associated with adverse incidents; Y92.234 Operating room of hospital as the place of occurrence of the external cause; K80.20 Calculus of gallbladder without cholecystitis without obstruction; K66.0 Peritoneal adhesions (postprocedural) (postinfection); E11.22 Type 2 diabetes mellitus with diabetic chronic kidney disease; G47.30 Sleep apnea, unspecified; I12.9 Hypertensive chronic kidney disease with stage 1 through stage 4 chronic kidney disease, or unspecified chronic kidney disease; K59.00 Constipation, unspecified; Z96.611 Presence of right artificial shoulder joint; E83.89 Other disorders of mineral metabolism; T50.2X5A Adverse effect of carbonic-anhydrase inhibitors, benzothiadiazides and other diuretics, initial encounter; Z87.442 Personal history of urinary calculi; Z79.899 Other long term (current) drug therapy; Z79.890 Hormone replacement therapy; Z79.82 Long term (current) use of aspirin; Z79.4 Long term (current) use of insulin
CPT/HCPCS: 71046; 80048; 80053; 83735; 85025; 88304

== ENCOUNTER → 2018-12-30 | Outpatient (CLI) | payer MEDICARE ==
[2018-12-30 13:54] LABS: Anisocytosis Slight; HCT 37.1 % (39.0-53.0); MCH 28.7 pg (25.0-35.0); MCHC 32.5 g/dL (31.0-37.0); MCV 88.3 fL (80.0-100.0); Mean Platelet Volume 7.3; Platelet Count 193 k/uL (150-450); WBC 8.9 k/uL (3.8-10.6)
[2018-12-30 14:09] LABS: Amorphous Sediment,Urine Rare /hpf; Appearance,Urine Cloudy (Clear); Bilirubin,Urine Negative (Negative); Blood,Urine Small (Negative); Color,Urine Yellow; Glucose,Urine (UA) 3+ (Negative); Granular Casts,Urine 13 /lpf (0); Ketones,Urine Negative (Negative); Leukocyte Esterase,Urine Negative (Negative); Mucus,Urine Rare /hpf; Nitrite,Urine Negative (Negative); Protein,Urine 3+ (Negative); RBC,Urine 1 /hpf (0-5); Specific Gravity,Urine 1.021 (1.001-1.035); Squamous Epithelial Cell,Urine <1 /hpf (0-4); Urobilinogen,Urine <2.0 mg/dL (<2.0); WBC,Urine 9 /hpf (0-5)
[2018-12-30 19:24] LABS: Iron Saturation 19.05 (15.00-50.00)
[2018-12-30 19:37] LABS: African American GFR (CKD) 18.7 (60.0-200.0); Albumin 4.4 g/dL (3.80-4.90); Albumin/Globulin Ratio 1.69 (1.60-3.17); Anion Gap 8.6 mmol/L (4.00-12.00); BUN/Creat Ratio 14.41 Ratio (12.00-20.00); Calcium 10.6 mg/dL (8.7-10.3); Carbon Dioxide 26.4 mmol/L (21.6-31.8); Globulin 2.6 g/dL (1.6-3.3); Magnesium 1.9 mg/dL (1.5-2.4); Phosphorus 3.6 mg/dL (2.4-5.1); Potassium 4.2 mmol/L (3.5-5.5); Total Bilirubin 0.4 mg/dL (0.3-1.2); Uric Acid 6.2 mg/dL (3.7-8.7)
[2018-12-30 20:33] LABS: Parathyroid Hormone Intact 93.5 pg/mL (14.0-72.0)
== END | disposition home or self-care (01) ==
LOC: LABWHC1 13:03
PROVIDERS: ATTEND Nurse Practitioner Family
DX: N39.0 Urinary tract infection, site not specified (principal); M10.9 Gout, unspecified; N25.81 Secondary hyperparathyroidism of renal origin; N18.4 Chronic kidney disease, stage 4 (severe); D63.1 Anemia in chronic kidney disease; D50.9 Iron deficiency anemia, unspecified; E21.3 Hyperparathyroidism, unspecified
CPT/HCPCS: 36415; 80053; 81001; 82728; 83540; 83550; 83735; 83970; 84100; 84550; 85027

== ENCOUNTER → 2019-03-06 | Outpatient (CLI) | payer MEDICARE ==
[2019-03-06 11:35] LABS: HGB 11.6 gm/dL (13.0-17.5); MCH 29.1 pg (25.0-35.0); MCHC 33.2 g/dL (31.0-37.0); MCV 87.6 fL (80.0-100.0); Mean Platelet Volume 7.2; Platelet Count 165 k/uL (150-450); RDW 14.7 % (11.5-15.5); WBC 8.3 k/uL (3.8-10.6)
[2019-03-06 11:43] LABS: Amorphous Sediment,Urine Rare /hpf; Appearance,Urine Clear (Clear); Bacteria,Urine Rare /hpf; Bilirubin,Urine Negative (Negative); Blood,Urine Small (Negative); Color,Urine Light Yellow; Glucose,Urine (UA) 2+ (Negative); Hyaline Casts,Urine 1 /lpf (0-2); Ketones,Urine Negative (Negative); Leukocyte Esterase,Urine Negative (Negative); Mucus,Urine Rare /hpf; Nitrite,Urine Negative (Negative); PH, Urine 5.5 (5.0-8.0); Protein,Urine 2+ (Negative); RBC,Urine 2 /hpf (0-5); Specific Gravity,Urine 1.015 (1.001-1.035); Urobilinogen,Urine <2.0 mg/dL (<2.0); WBC,Urine 5 /hpf (0-5)
[2019-03-06 16:59] LABS: Iron Saturation 23.16 (15.00-50.00)
[2019-03-06 17:04] LABS: African American GFR (CKD) 20.1 (60.0-200.0); Albumin 4.1 g/dL (3.80-4.90); Albumin/Globulin Ratio 1.95 (1.60-3.17); Anion Gap 9.3 mmol/L (4.00-12.00); BUN/Creat Ratio 15.63 Ratio (12.00-20.00); Calcium 10.3 mg/dL (8.7-10.3); Carbon Dioxide 22.7 mmol/L (21.6-31.8); Globulin 2.1 g/dL (1.6-3.3); Magnesium 1.6 mg/dL (1.5-2.4); Phosphorus 3.8 mg/dL (2.4-5.1); Potassium 4.1 mmol/L (3.5-5.5); Total Bilirubin 0.4 mg/dL (0.3-1.2); Total Protein 6.2 g/dL (6.2-8.2); Uric Acid 6.1 mg/dL (3.7-8.7)
[2019-03-06 17:06] LABS: Vitamin D 25 Hydroxy 28.5 ng/mL (30.0-100.0)
== END | disposition home or self-care (01) ==
LOC: LABWHC1 10:18
PROVIDERS: ATTEND Internal Medicine
DX: N18.4 Chronic kidney disease, stage 4 (severe) (principal); D63.1 Anemia in chronic kidney disease; N39.0 Urinary tract infection, site not specified; N25.81 Secondary hyperparathyroidism of renal origin; E55.9 Vitamin D deficiency, unspecified; M10.9 Gout, unspecified
CPT/HCPCS: 36415; 80053; 81001; 82043; 82306; 82570; 82728; 83540; 83550; 83735; 83970; 84100; 84550; 85027

== ENCOUNTER → 2019-06-09 | Outpatient (CLI) | payer MEDICARE ==
--- NOTE | 2019-06-15 08:55 | ECHOF ---
Referral Reason:I50.9 CHF MEASUREMENTS -------- HEIGHT: 170.2 cm WEIGHT: 86.2 kg BP: RVIDd: 3.4 cm (< 3.3) IVSd: 1.2 cm (0.6 - 1.1) LVIDd: 4.3 cm (3.9 - 5.3) LVPWd: 1.3 cm (0.6 - 1.1) IVSs: 1.9 cm LVIDs: 2.7 cm LVPWs: 2.0 cm LAESV Index (A-L): 32.10 ml/m Ao Diam: 3.9 cm (2.0 - 3.7) AV Cusp: 2.2 cm (1.5 - 2.6) LA Diam: 3.6 cm (2.7 - 3.8) MV EXCURSION: 13.536 mm (> 18.000) MV EF SLOPE: 54 mm/s (70 - 150) EPSS: 0.9 cm MV E Jaswinder: 1.06 m/s MV DecT: 299 ms MV A Jaswinder: 1.59 m/s MV E/A Ratio: 0.66 AV maxP.35 mmHg AV meanP.57 mmHg RAP: 5.00 mmHg RVSP: 15.95 mmHg FINDINGS -------- Sinus rhythm. This was a technically adequate study. There is mild concentric left ventricular hypertrophy. Overall left ventricular systolic function i s normal with, an EF between 55 - 60 %. Increased LAP Grade 2 Diastolic Dysfunction. The right ventricle is mildly enlarged. LA is midly dilated 29-33ml/m2. The right atrial size is normal. Interatrial and interventricular septum intact. The aortic valve is trileaflet and appears structurally normal. There is mild aortic valve sclerosi s. There is no evidence of aortic regurgitation. Mild mitral annular calcification present. Sngw-ei-aedlxwmv mitral stenosis , with a MVA of 2.2cm (by PHT) Mild tricuspid regurgitation present. There is no evidence of pulmonary hypertension. The right v entricular systolic pressure, as measured by Doppler, is 15.95mmHg. Trace/mild (physiologic) pulmonic regurgitation. The aortic root size is normal. Normal inferior vena cava with normal inspiratory collapse consistent with estimated right atrial pre ssure of 5 mmHg. There is no pericardial effusion. CONCLUSIONS -------- 1. Sinus rhythm. 2. This was a technically adequate study. 3. There is mild concentric left ventricular hypertrophy. 4. Overall left ventricular systolic function is normal with, an EF between 55 - 60 %. 5. Increased LAP Grade 2 Diastolic Dysfunction. 6. The right ventricle is mildly enlarged. 7. LA is midly dilated 29-33ml/m2. 8. The right atrial size is normal. 9. Interatrial and interventricular septum intact. 10. The aortic valve is trileaflet and appears structurally normal. 11. There is mild aortic valve sclerosis. 12. There is no evidence of aortic regurgitation. 13. Mild mitral annular calcification present. 14. Petx-yv-fvfzmiml mitral stenosis. 15. , with a MVA of 2.2cm (by PHT) 16. Mild tricuspid regurgitation present. 17. There is no evidence of pulmonary hypertension. 18. The right ventricular systolic pressure, as measured by Doppler, is 15.95mmHg. 19. Trace/mild (physiologic) pulmonic regurgitation. 20. The aortic root size is normal. 21. Normal inferior vena cava with normal inspiratory collapse consistent with estimated right atrial pressure of 5 mmHg. 22. There is no pericardial effusion. ION IMPLANT MACHINE OPERATOR: Jennifer Hauser RDCS
== END | disposition home or self-care (01) ==
LOC: RADECHMAIN 12:56
PROVIDERS: ATTEND Family Medicine
DX: I35.8 Other nonrheumatic aortic valve disorders (principal); I05.8 Other rheumatic mitral valve diseases; I05.0 Rheumatic mitral stenosis; I07.1 Rheumatic tricuspid insufficiency; I50.9 Heart failure, unspecified
CPT/HCPCS: 93306

== ENCOUNTER → 2019-07-13 | Outpatient (CLI) | payer MEDICARE ==
[2019-07-13 14:54] LABS: HGB 11.2 gm/dL (13.0-17.5); MCHC 32.9 g/dL (31.0-37.0); MCV 88.3 fL (80.0-100.0); Platelet Count 220 k/uL (150-450); RBC 3.85 m/uL (4.30-5.90); RDW 14.2 % (11.5-15.5); WBC 8.3 k/uL (3.8-10.6)
[2019-07-13 14:59] LABS: Appearance,Urine Clear (Clear); Bacteria,Urine Rare /hpf; Bilirubin,Urine Negative (Negative); Blood,Urine Small (Negative); Color,Urine Light Yellow; Glucose,Urine (UA) 3+ (Negative); Ketones,Urine Negative (Negative); Leukocyte Esterase,Urine Negative (Negative); Mucus,Urine Rare /hpf; Nitrite,Urine Negative (Negative); Protein,Urine 2+ (Negative); RBC,Urine <1 /hpf (0-5); Specific Gravity,Urine 1.012 (1.001-1.035); Squamous Epithelial Cell,Urine 1 /hpf (0-4); Urobilinogen,Urine <2.0 mg/dL (<2.0); WBC,Urine 1 /hpf (0-5)
[2019-07-13 18:44] LABS: Ferritin 174.9 ng/mL (22.0-322.0)
[2019-07-13 18:45] LABS: % Iron Saturation 15.95 (15.00-50.00); African American GFR (CKD) 15.3 (60.0-200.0); Albumin 4.7 g/dL (3.80-4.90); Albumin/Globulin Ratio 2.04 (1.60-3.17); Anion Gap 9.5 mmol/L (4.00-12.00); BUN/Creat Ratio 20.5 Ratio (12.00-20.00); Calcium 10.5 mg/dL (8.7-10.3); Carbon Dioxide 19.5 mmol/L (21.6-31.8); Globulin 2.3 g/dL (1.6-3.3); Magnesium 1.9 mg/dL (1.5-2.4); Non-African American GFR(CKD) 13.2 (60.0-200.0); Phosphorus 6.5 mg/dL (2.4-5.1); Potassium 5.4 mmol/L (3.5-5.5); Total Bilirubin 0.3 mg/dL (0.3-1.2); Uric Acid 4.8 mg/dL (3.7-8.7)
[2019-07-13 19:43] LABS: Urine Creatinine 54.2 mg/dL
[2019-07-14 09:06] LABS: Angiotensin-1 Converting Enz. 49 U/L (8-52)
[2019-07-14 11:19] LABS: Vitamin D, 1, 25-Dihydroxy 14 pg/mL (20 - 79)
== END | disposition home or self-care (01) ==
LOC: LABWHC1 14:00
PROVIDERS: ATTEND Internal Medicine
DX: D64.9 Anemia, unspecified (principal); N39.0 Urinary tract infection, site not specified; R80.9 Proteinuria, unspecified; N25.81 Secondary hyperparathyroidism of renal origin; M10.9 Gout, unspecified
CPT/HCPCS: 36415; 80053; 81001; 82043; 82164; 82570; 82652; 82728; 83519; 83540; 83550; 83735; 83883; 83970; 84100; 84166; 84550; 85027; 86334

== ENCOUNTER 2019-07-31 18:49 | Observation (INO) | payer MEDICARE ==
--- NOTE | 2019-07-31 19:27 | ED ---
General Adult HPI - General Chief complaint: Chest Pain Stated complaint: CP Time Seen by Provider: 07/31/19 18:52 Source: EMS Mode of arrival: EMS Limitations: no limitations - History of Present Illness Initial comments: Dictation was produced using [employer] dictation software. please excuse any grammatical, word or spelling errors. Chief Complaint: 78-year-old male past medical history diabetes, hypertension presents with chief complaint of dysphagia and epigastric pain. History of Present Illness: Patient is an 78-year-old male. Proximal to 1 hour ago he began having epigastric pain. He states it was a pressure-like sensation . Denies any radiation to the jaw or the extremity. Denies any associated nausea or diaphoresis. He took one of his sublingual nitroglycerin which improved his symptoms. He states that he denies any pain currently however he does feel slight discomfort. Patient also has secondary complaint of dysphagia. He states that over the last month or 2 days been having foreign body sensation in the throat area. Patient states that intermittently whenever he eats he feels as though there is a lump in his throat. Patient noted his symptoms were worse after eating straight today. Patient denies any difficulty breathing. Denies any difficulty swallowing currently. The ROS documented in this emergency department record has been reviewed and confirmed by me. Those systems with pertinent positive or negative responses have been documented in the HPI. All other systems are other negative and/or noncontributory. PHYSICAL EXAM: General Impression: Alert and oriented x3, not in acute distress HEENT: Normocephalic atraumatic, extra-ocular movements intact, pupils equal and reactive to light bilaterally, mucous membranes moist. Cardiovascular: Heart regular rate and rhythm, S1&S2 audible, no murmurs, rubs or gallops Chest: Lungs clear to auscultation bilaterally, no rhonchi, no wheeze, no rales Abdomen: Bowel sounds present, abdomen soft, non-tender, non-distended, no organomegaly Musculoskeletal: Pulses present and equal in all extremities, no peripheral edema Motor: no focal deficits noted Neurological: CN II-XII grossly intact, no focal motor or sensory deficits noted Skin: Intact with no visualized rashes Psych: Normal affect and mood ED course: 78 yo M presents with atypical chest pain with typical features and dysphasia with foreign body sensation in the throat.. Upon arrival are within acceptable limits. Patient's well-appearing at bedside. He denies any pain how ever does imply that he has some discomfort in the epigastric area. There is some concern for acute coronary syndrome given that patient has risk factors. EKG is benign without any findings to suggest ischemia or infarction. Patient also has secondary complaint of dysphagia with foreign body sensation in throat. He is breathing comfortably and not drooling. Patient denies ever seen a paid intern in the past. Chart review shows that he had a stress test performed last year in September found be unremarkable. Abdomen evaluation obtained. CBC remarkable. Coag panel is unremarkable. Metabolic panel shows potassium 5.3. Anion gap acidosis, creatinine 4.61, BUN of 78, troponin 0.017. Checks x-ray is nonacute. Patient reevaluated at bedside and appears comfortable. He is quietly watching TV. Discussed the case with Dr. Oliver and is willing to accept patients care. Patient will have consultation to nephrology for chronic kidney disease per request by Dr. Mena because patient may be a candidate for initiation of dialysis. Cardiology will be consulted for evaluation of chest pain and gastroenterology will be consulted for dysphagia. She received aspirin. EKG interpretation: Ventricular rate 60, sinus rhythm,. 1-32, care is 88, QTc 412. No AL prolongation, no QTC prolongation, no ST or T-wave changes noted. . Overall, this EKG is unremarkable - Related Data Home Medications Medication Instructions Recorded Confirmed Aspirin [Adult Low Dose Aspirin EC] 81 mg PO DAILY 01/07/17 11/23/18 Montelukast [Singulair] 10 mg PO W/SUPPER 01/07/17 11/23/18 Sodium Bicarbonate 650 mg PO TID 01/07/17 11/23/18 Torsemide [Demadex] 40 mg PO DAILY 01/07/17 11/23/18 Acetaminophen [Tylenol] 1,000 mg PO QAM 10/18/18 11/23/18 Atorvastatin [Lipitor] 10 mg PO DAILY 10/18/18 11/23/18 Calcitriol 0.25 mcg PO MO 10/18/18 11/23/18 Cholecalciferol [Vitamin D3 (25 2,000 unit PO DAILY 10/18/18 11/23/18 Mcg = 1000 Iu)] Ferrous Sulfate [Iron] 325 mg PO DAILY 10/18/18 11/23/18 Gabapentin [Neurontin] 100 mg PO BID@1700,2300 10/18/18 11/23/18 Insulin Glargine [Lantus] 40 unit SQ W/BRKFST 10/18/18 11/23/18 Insulin Lispro [humaLOG Kwikpen] 10 unit SQ W/LUNCH 10/18/18 11/23/18 Insulin Lispro [humaLOG Kwikpen] 14 unit SQ W/BRKFST 10/18/18 11/23/18 Insulin Lispro [humaLOG Kwikpen] 14 unit SQ W/SUPPER 10/18/18 11/23/18 Isosorbide Mononitrate [Ismo] 10 mg PO DAILY 10/18/18 11/23/18 Levothyroxine Sodium [Synthroid] 75 mcg PO DAILY 10/18/18 11/23/18 Oxybutynin Chloride [Ditropan] 5 mg PO DAILY 10/18/18 11/23/18 Gabapentin [Neurontin] 300 mg PO TID 10/27/18 11/23/18 Allergies Allergy/AdvReac Type Severity Reaction Status Date / Time No Known Allergies Allergy Verified 11/23/18 14:46 Review of Systems ROS Statement: Those systems with pertinent positive or pertinent negative responses have been documented in the HPI. ROS Other: All systems not noted in ROS Statement are negative. Past Medical History Past Medical History: Diabetes Mellitus, Hypertension, Osteoarthritis (OA), Renal Disease, Sleep Apnea/CPAP/BIPAP, Thyroid Disorder Additional Past Medical History / Comment(s): neuropathy porfirio feet, gallstones, kidney function at 25%, hx kidney stones History of Any Multi-Drug Resistant Organisms: None Reported Past Surgical History: Appendectomy, Back Surgery, Cholecystectomy, Hernia Repair, Joint Replacement, Orthopedic Surgery, Tonsillectomy Additional Past Surgical History / Comment(s): rt shoulder replacement, left shoulder arthroscopy, vascular surgery left arm Past Anesthesia/Blood Transfusion Reactions: No Reported Reaction Past Psychological History: No Psychological Hx Reported Smoking Status: Never smoker Past Alcohol Use History: None Reported Past Drug Use History: None Reported - Past Family History Brother(s) Family Medical History: Cancer, Deep Vein Thrombosis (DVT) General Exam Limitations: no limitations Medical Decision Making - Lab Data Result diagrams: 07/31/19 19:51 07/31/19 19:51 Lab Results 07/31/19 07/31/19 07/31/19 Range/Units 19:51 19:51 19:51 WBC 10.4 (3.8-10.6) k/uL RBC 3.96 L (4.30-5.90) m/uL Hgb 11.4 L (13.0-17.5) gm/dL Hct 33.8 L (39.0-53.0) % MCV 85.2 (80.0-100.0) fL MCH 28.8 (25.0-35.0) pg MCHC 33.7 (31.0-37.0) g/dL RDW 14.3 (11.5-15.5) % Plt Count 215 (150-450) k/uL Neutrophils % 72 % Lymphocytes % 15 % Monocytes % 5 % Eosinophils % 6 % Basophils % 0 % Neutrophils # 7.5 (1.3-7.7) k/uL Lymphocytes # 1.6 (1.0-4.8) k/uL Monocytes # 0.6 (0-1.0) k/uL Eosinophils # 0.6 (0-0.7) k/uL Basophils # 0.0 (0-0.2) k/uL PT 10.1 (9.0-12.0) sec INR 1.0 (<1.2) APTT 23.1 (22.0-30.0) sec Sodium 140 (137-145) mmol/L Potassium 5.3 H (3.5-5.1) mmol/L Chloride 105 (98-107) mmol/L Carbon Dioxide 21 L (22-30) mmol/L Anion Gap 14 mmol/L BUN 78 H (9-20) mg/dL Creatinine 4.61 H (0.66-1.25) mg/dL Est GFR (CKD-EPI)AfAm 13 (>60 ml/min/1.73 sqM) Est GFR (CKD-EPI)NonAf 11 (>60 ml/min/1.73 sqM) Glucose 75 (74-99) mg/dL Calcium 10.5 H (8.4-10.2) mg/dL Magnesium 2.0 (1.6-2.3) mg/dL Total Bilirubin 0.5 (0.2-1.3) mg/dL AST 24 (17-59) U/L ALT 21 (4-49) U/L Alkaline Phosphatase 84 (38-126) U/L Troponin I (0.000-0.034) ng/mL Total Protein 8.0 (6.3-8.2) g/dL Albumin 4.6 (3.5-5.0) g/dL 07/31/19 Range/Units 19:51 WBC (3.8-10.6) k/uL RBC (4.30-5.90) m/uL Hgb (13.0-17.5) gm/dL Hct (39.0-53.0) % MCV (80.0-100.0) fL MCH (25.0-35.0) pg MCHC (31.0-37.0) g/dL RDW (11.5-15.5) % Plt Count (150-450) k/uL Neutrophils % % Lymphocytes % % Monocytes % % Eosinophils % % Basophils % % Neutrophils # (1.3-7.7) k/uL Lymphocytes # (1.0-4.8) k/uL Monocytes # (0-1.0) k/uL Eosinophils # (0-0.7) k/uL Basophils # (0-0.2) k/uL PT (9.0-12.0) sec INR (<1.2) APTT (22.0-30.0) sec Sodium (137-145) mmol/L Potassium (3.5-5.1) mmol/L Chloride (98-107) mmol/L Carbon Dioxide (22-30) mmol/L Anion Gap mmol/L BUN (9-20) mg/dL Creatinine (0.66-1.25) mg/dL Est GFR (CKD-EPI)AfAm (>60 ml/min/1.73 sqM) Est GFR (CKD-EPI)NonAf (>60 ml/min/1.73 sqM) Glucose (74-99) mg/dL Calcium (8.4-10.2) mg/dL Magnesium (1.6-2.3) mg/dL Total Bilirubin (0.2-1.3) mg/dL AST (17-59) U/L ALT (4-49) U/L Alkaline Phosphatase (38-126) U/L Troponin I 0.017 (0.000-0.034) ng/mL Total Protein (6.3-8.2) g/dL Albumin (3.5-5.0) g/dL Disposition Clinical Impression: Chest pain Disposition: ADMITTED IP TO THIS HOSP Condition: Fair Referrals: Usman Mena MD [Primary Care Provider] - 1-2 days Time of Disposition: 21:05
[2019-07-31 20:14] LABS: Basophils % (A) 0 %; Eosinophils # (A) 0.6 k/uL (0-0.7); Eosinophils % (A) 6 %; HCT 33.8 % (39.0-53.0); HGB 11.4 gm/dL (13.0-17.5); Lymphocytes # (A) 1.6 k/uL (1.0-4.8); Lymphocytes % (A) 15 %; MCH 28.8 pg (25.0-35.0); MCHC 33.7 g/dL (31.0-37.0); MCV 85.2 fL (80.0-100.0); Mean Platelet Volume 7.4; Monocytes # (A) 0.6 k/uL (0-1.0); Monocytes % (A) 5 %; Neutrophils # (A) 7.5 k/uL (1.3-7.7); Neutrophils % (A) 72 %; Platelet Count 215 k/uL (150-450); RBC 3.96 m/uL (4.30-5.90); RDW 14.3 % (11.5-15.5); WBC 10.4 k/uL (3.8-10.6)
[2019-07-31 20:17] LABS: Albumin 4.6 g/dL (3.5-5.0); Calcium 10.5 mg/dL (8.4-10.2); Potassium 5.3 mmol/L (3.5-5.1); Total Bilirubin 0.5 mg/dL (0.2-1.3)
[2019-07-31 20:27] LABS: Prothrombin Time 10.1 sec (9.0-12.0)
[2019-07-31 20:28] LABS: Partial Thromboplastin Time 23.1 sec (22.0-30.0)
--- NOTE | 2019-07-31 20:28 | XR ---
EXAMINATION TYPE: XR chest 2V DATE OF EXAM: 07/31/2019 COMPARISON: 10/29/2018 HISTORY: Fever TECHNIQUE: 2 views FINDINGS: Heart and mediastinum are normal. Lungs are clear of infiltrate. There is small linear dens ities at the lung bases. There is a right shoulder prosthesis. There is no heart failure. IMPRESSION: Mild subsegmental atelectasis at the lung bases. No pulmonary consolidation or heart fail ure. Normal heart.
[2019-07-31] MEDS ORDERED: ASPIRIN 81 MG PO STA (20:59)
[2019-07-31 22:29] LABS: Glucose,Whole Blood 92 mg/dL (75-99)
[2019-07-31] MEDS ORDERED: NITROGLYCERIN SL TABS 0.4 MG TAB SUBLINGUAL PRN (22:43)
[2019-08-01] MEDS ORDERED: PROCHLORPERAZINE 10 MG TAB PO PRN
[2019-08-01 05:53] LABS: Glucose,Whole Blood 57 mg/dL (75-99)
[2019-08-01] MEDS: INSULIN ASPART (NovoLOG) 100 UNIT/ML VIAL SQ SCH ×3 (06:20→17:19)
[2019-08-01] MEDS: INSULIN DETEMIR (LEVEMIR) 100 UNIT/ML SYR SQ SCH (06:20)
[2019-08-01] MEDS: SEVELAMER 800 MG TAB PO SCH ×2 (06:23→17:23)
[2019-08-01] MEDS: LEVOTHYROXINE 100 MCG TAB PO SCH (06:23)
[2019-08-01 06:25] LABS: Glucose,Whole Blood 59 mg/dL (75-99)
[2019-08-01 06:38] LABS: Glucose,Whole Blood 75 mg/dL (75-99)
[2019-08-01 08:12] LABS: Cholesterol 128 mg/dL (<200); HDL Cholesterol 41 mg/dL (40-60); LDL Cholesterol,Calculated 57 mg/dL (0-99); Triglycerides 148 mg/dL (<150)
[2019-08-01] MEDS: GABAPENTIN 100 MG CAP PO SCH ×2 (08:37→17:23)
[2019-08-01] MEDS: OXYBUTYNIN 10 MG TAB.ER.24 PO SCH (08:38)
[2019-08-01] MEDS: FERROUS SULFATE 325 MG TAB PO SCH (08:38)
[2019-08-01] MEDS: ISOSORBIDE MONONITRATE 20 MG TAB PO SCH ×2 (08:38→17:23)
[2019-08-01] MEDS: amLODIPine 10 MG TAB PO SCH (08:38)
[2019-08-01] MEDS ORDERED: ATORVASTATIN 10 MG TAB PO SCH (09:00)
[2019-08-01] MEDS ORDERED: SPIRONOLACTONE 25 MG TAB PO SCH (09:00)
[2019-08-01] MEDS ORDERED: ASPIRIN 325 MG TAB PO SCH (09:00)
--- NOTE | 2019-08-01 10:59 | P.NPCON ---
History of Present Illness - Reason for Consult acute renal failure, chronic renal failure - History of Present Illness Reason for consultation: Acute kidney injury on chronic kidney disease History of present illness: Patient is a 78-year-old male seen in renal consultation for acute kidney injury on chronic kidney disease. 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 Patient's baseline creatinine recently has been in the range of 3-4. Patient presented to the hospital with chest discomfort which started yesterday while he was having dinner. When patient ca me to the hospital he felt better after taking sublingual nitroglycerin. He denies nausea vomiting. He admits to good urine output. No hematuria or dysuria. No evidence of fluid overload noted on chest x-ray. Appetite is good. Patient does have history of dysphagia. Denies use of nonsteroidals. Patient has a left upper extremity AV fistula which is ready to be used for hemodialysis. No active complaints at this time. He is awake and alert. Vital signs are stable. General: The patient appeared well nourished and normally developed. HEENT: Head exam is unremarkable. Neck is without jugular venous distension. LUNGS: Lungs are clear to auscultation and percussion. Breath sounds decreased. HEART: Rate and Rhythm are regular. First and second heart sounds normal. No murmurs, rubs or gallops. ABDOMEN: Abdominal exam reveals normal bowel sounds. Non-tender and non- distended. No evidence of peritonitis. EXTREMITITES: No clubbing, cyanosis, or edema. Past Medical History Past Medical History: Diabetes Mellitus, Hypertension, Osteoarthritis (OA), Renal Disease, Sleep Apnea/CPAP/BIPAP, Thyroid Disorder Additional Past Medical History / Comment(s): neuropathy porfirio feet, gallstones, kidney function at 25%, hx kidney stones fistula in left upper arm never been used. History of Any Multi-Drug Resistant Organisms: None Reported Past Surgical History: Appendectomy, Back Surgery, Cholecystectomy, Hernia Repair, Joint Replacement, Orthopedic Surgery, Tonsillectomy Additional Past Surgical History / Comment(s): rt shoulder replacement, left s houlder arthroscopy, vascular surgery left arm Past Anesthesia/Blood Transfusion Reactions: No Reported Reaction Past Psychological History: No Psychological Hx Reported Smoking Status: Never smoker Past Alcohol Use History: None Reported Additional Past Alcohol Use History / Comment(s): NO blood draws,BP or IV's in left arm due to hx vascular surgery left arm. Past Drug Use History: None Reported - Past Family History Brother(s) Family Medical History: Cancer, Deep Vein Thrombosis (DVT) Medications and Allergies Home Medications Medication Instructions Recorded Confirmed Type Montelukast [Singulair] 10 mg PO HS 01/07/17 07/31/19 History Atorvastatin [Lipitor] 10 mg PO DAILY 10/18/18 07/31/19 History Gabapentin [Neurontin] 100 mg PO BID@0800,1800 10/18/18 07/31/19 History Ferrous Sulfate [Feosol] 325 mg PO DAILY 07/31/19 07/31/19 History Gabapentin [Neurontin] 300 mg PO HS@2200 07/31/19 07/31/19 History Insulin Aspart [NovoLOG Flexpen] 10 units SQ AC-LUNCH 07/31/19 07/31/19 History Insulin Aspart [NovoLOG Flexpen] 16 units SQ AC-BRKFST 07/31/19 07/31/19 History Insulin Aspart [NovoLOG Flexpen] 16 units SQ AC-SUPPER 07/31/19 07/31/19 History Insulin Glargine,Hum.rec.anlog 50 unit SQ AC-BRKFST 07/31/19 07/31/19 History [Lantus Solostar] Isosorbide Mononitrate [Ismo] 20 mg PO BID 07/31/19 07/31/19 History Latanoprost/Pf [Latanoprost 0.005% 1 drop BOTH EYES HS 07/31/19 07/31/19 History Eye Drop] Levothyroxine Sodium [Synthroid] 100 mcg PO DAILY 07/31/19 07/31/19 History Nitroglycerin Sl Tabs [Nitrostat] 0.4 mg SUBLINGUAL Q5M PRN 07/31/19 07/31/19 History Oxybutynin Chloride [Ditropan XL] 10 mg PO DAILY 07/31/19 07/31/19 History Sevelamer [Renvela] 800 mg PO AC-BID 07/31/19 07/31/19 History Spironolactone [Aldactone] 25 mg PO DAILY 07/31/19 07/31/19 History amLODIPine [Norvasc] 10 mg PO DAILY 07/31/19 07/31/19 History Allergies Allergy/AdvReac Type Severity Reaction Status Date / Time No Known Allergies Allergy Verified 07/31/19 21:33 Physical Exam Vitals: Vital Signs Temp Pulse Pulse Resp BP BP Pulse Ox 08/01/19 03:18 98.2 F 60 18 123/65 95 08/01/19 03:17 64 18 08/01/19 00:00 98.5 F 64 18 138/72 97 07/31/19 23:21 18 07/31/19 21:39 98.0 F 18 167/74 96 07/31/19 21:08 61 18 151/90 97 Intake and Output 07/31/19 08/01/19 08/01/19 22:59 06:59 14:59 Intake Total 120 240 Balance 120 240 Intake: Oral 120 240 Other: Voiding Method Toilet # Voids 2 Weight 83.915 kg 82.3 kg Results - Lab Results Most recent lab results Calcium 10.5 mg/dL (8.4-10.2) H 07/31/19 19:51 Magnesium 2.0 mg/dL (1.6-2.3) 07/31/19 19:51 07/31/19 19:51 07/31/19 19:51 Assessment and Plan Plan: Assessment: 1. Acute kidney injury mostly prerenal from diuresis. Creatinine 4.61 on admission. 2. 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 3. Hypertension with chronic kidney disease. Controlled. 4. Chest pain, currently improved. Cardiology following. 5. Chronic kidney disease mineral bone disease maintained on Renvela. 6. Insulin-dependent diabetes mellitus. 7. Hypercalcemia. Recent workup revealed PTH of 114. Patient's vitamin D and 1, 25 daily levels were normal. Alfa level was normal. Urine electrophoresis revealed glomerular and tubular proteinuria. He did have elevated kappa light chains. Patient was referred to oncology. 8. Metabolic acidosis secondary to chronic kidney disease. Plan: Hold diuretics, Discontinue spironolactone. Check nuclear parathyroid ultrasound. Add sensipar 30 mg once weekly. Patient will need to follow-up with oncology outpatient. No urgent need for renal replacement therapy at this time. Patient has a matured left upper extremity AV fistula. Follow-up echocardiogram. Add oral sodium bicarbonate. Thank you for the consultation. I will continue to follow the patient with you during his hospital stay
--- NOTE | 2019-08-01 11:38 | CT ---
EXAMINATION TYPE: CT chest abdomen wo con DATE OF EXAM: 08/01/2019 COMPARISON: 09/15/2018 HISTORY: Epigastric pain CT DLP: 1053 mGycm Automated exposure control for dose reduction was used. FINDINGS: Exam markedly limited due to the lack of contrast Metallic artifact from the right shoulder prostheses limits exam of the apex of the lungs. Grossly li near changes are seen which is likely the basis of atelectasis. 3 mm subpleural nodule posterior segm ent right upper lobe too small to characterize. Additional pleural thickening noted on the left with areas of subsegmental consolidation most typical of atelectasis more nodular appearing density along the posterior margin left lower lobe measuring 1.1 cm. Postcholecystectomy changes are noted. 5 mm hypodensity in the posterior segment right lobe the liver is too small to characterize without IV contrast. Splenic granuloma suspected. Atherosclerotic change aorta without evidence of aneurysm. Bowel gas pattern nonspecific. Changes of diverticulosis. No diagnostic evidence of obstruction. Hypertrophic and degenerative change of the spine. Dense coronary artery calcification noted. Adrenal glands have a normal morphology.. IMPRESSION: 1. Subsegmental areas of consolidation are felt more typical of atelectasis than pneumonia. There are couple pulmonary nodules the largest seen in the left lower lobe measuring 1.1 cm. Consider PET scan 2. Dense coronary artery calcification. 3. Hypodensity involving the liver is too small to characterize. 4. Postcholecystectomy 5. Diverticulosis
[2019-08-01 12:44] LABS: Glucose,Whole Blood 127 mg/dL (75-99)
[2019-08-01] MEDS: PANTOPRAZOLE 40 MG TABLET PO SCH ×2 (12:50→17:23)
[2019-08-01] MEDS: SODIUM BICARBONATE TAB 650 MG TAB PO SCH ×2 (12:50→21:44)
--- NOTE | 2019-08-01 13:42 | FL ---
EXAMINATION TYPE: FL barium swallow DATE OF EXAM: 08/01/2019 CLINICAL HISTORY: Dysphasia TECHNIQUE: A single contrast esophagram is performed utilizing air and barium. A total of 27 second s of fluoroscopic time was utilized during procedure. 21 images submitted COMPARISON: None FINDINGS: The esophagus shows normal motility and emptying into the stomach. No evidence of hiatal h ernia or stricture noted. No significant gastroesophageal reflux was seen during real time performanc e of this study. There was a prominent cricopharyngeus muscle and degenerative change of mid to lower cervical spine. No filling defects identified. IMPRESSION: No significant abnormality is seen to account for patient's symptoms.
--- NOTE | 2019-08-01 15:45 | NM ---
EXAMINATION TYPE: NM parathyroid w/spect DATE OF EXAM: 08/01/2019 COMPARISON: Chest CT earlier today HISTORY: Hypercalcemia TECHNIQUE: Following administration of 24.6 mCi Tc99m Sestamibi. Anterior projection images of the neck and ches t were obtained 10 minutes and 3 hours post injection. SPECT images of the neck and chest were obtai [place] and reconstructed in three axes. FINDINGS: Exam suboptimal due to patient's large body habitus causing significant artifact. Normal th yroid and submandibular uptake with poor washout on delayed images in the thyroid gland. SPECT images show no definitive focal area of radiotracer uptake to suggest parathyroid adenoma in the neck or up per thorax. Normal uptake submandibular and parotid glands bilaterally along with left ventricular ca rdiac wall noted. IMPRESSION: As above
--- NOTE | 2019-08-01 16:36 | P.CRDCN ---
<Adwoa Rosen - Last Filed: 08/01/19 15:05> History of Present Illness History of present illness: This is Adwoa Rosen PA-C dictating a consult on this patient The patient was interviewed and examined by me as well as by Dr. Paris Case discussed with Dr. Paris and he agrees with the plan of care IMPRESSION / ASSESSMENT: Atypical chest discomfort which is associated with dysphasia, no acute changes on EKG, troponins normal 2 Progressive dyspnea on exertion with associated chest discomfort Dysphasia, GI has been consulted and he is undergoing workup with barium swallow and computed tomography scan CKD, nephrology following Mitral stenosis [place], using CPAP Hypertension, controlled Diabetes PLAN: Consider repeating stress test to evaulate worsening shortness of breath and chest tightness once his workup for dysphagia is complete Continue antihypertensive management with amlodipine Repeat echocardiogram has been ordered, will follow up on the results HPI Patient is a 78-year-old male with a past medical history significant for hypertension, diabetes, CKD who presented with complaints of dysphasia and chest discomfort. Patient states he has seen a retail manager for presurgical clearance in the hospital but has never followed with a retail manager outpatient. For the last few months he has had dysphasia. He has difficulty swallowing his food and feels like it's not going down. He subsequently develops chest pressure in the center of his chest and epigastric pain. The pain spreads across his chest bilaterally. No nausea or vomiting. He also states for the last 6 months he has been more short of breath on exertion. He used to be quite active and walk several miles a day but now gets very short of breath with minimal exertion. He also takes chest discomfort she describes as chest tightness across his chest on exertion. Most recently he had an episode of dysphasia yesterday when he tried to eat dinner. He felt like his dinner was not going down. He subsequently developed chest and epigastric pressure. Usually it radiates across his chest at this time it did not. He came into the hospital for further evaluation. On arrival his blood pressure was 151/90, pulse is 61, O2 sat 97%. Chest x-ray showed no acute process. EKG shows sinus mechanism with first-degree AV block, biatrial enlargement, no acute ST or T-wave abnormalities. Labs are significant for BUN 78, creatinine 4.61, potassium 5.3, troponins within normal limits 2. Patient seen and examined sitting up in the chair. Denies any chest pain currently. Continues to have dyspnea on exertion. He did eat breakfast and again felt like it was not going down all the way. He is a lifelong nonsmoker ROS: No fevers, chills or rigors, no cough, phlegm or expectoration, no nausea, vomiting or diarrhea, no hematuria, dysuria, no musculoskeletal complaints, no strokes or seizures, no skin lesions. Sleeps comfortably at night using his CPAP, no orthopnea or PND. EXAMINATION: Patient is afebrile, pulse in the 60s, respirations 18, blood pressure 125/59, oxygen saturation 94% on room air Patient seen and examined sitting up in the chair, in no acute distress Lungs are clear to auscultation bilaterally, no wheezing rhonchi or crackles Heart is regular, soft systolic murmur audible Mild tenderness to palpation in the epigastric area No elevated JVD Extremities warm no edema REVIEW OF LABS, ECG & MEDICAL DATA WBC 10.4, hemoglobin 11.4, platelets 215, potassium 5.3, BUN 78, creatinine 4.61, LDL 57 Troponins negative 3 Echocardiogram in May 2019 showed EF 55-60%, mild concentric hypertrophy, mild aortic valve sclerosis, mild to moderate mitral stenosis Dobutamine stress echo in September 2018 was negative for stress-induced ischemia Past Medical History Past Medical History: Diabetes Mellitus, Hypertension, Osteoarthritis (OA), Renal Disease, Sleep Apnea/CPAP/BIPAP, Thyroid Disorder Additional Past Medical History / Comment(s): neuropathy porfirio feet, gallstones, kidney function at 25%, hx kidney stones fistula in left upper arm never been used. History of Any Multi-Drug Resistant Organisms: None Reported Past Surgical History: Appendectomy, Back Surgery, Cholecystectomy, Hernia Repair, Joint Replacement, Orthopedic Surgery, Tonsillectomy Additional Past Surgical History / Comment(s): rt shoulder replacement, left sh oulder arthroscopy, vascular surgery left arm Past Anesthesia/Blood Transfusion Reactions: No Reported Reaction Past Psychological History: No Psychological Hx Reported Smoking Status: Never smoker Past Alcohol Use History: None Reported Additional Past Alcohol Use History / Comment(s): NO blood draws,BP or IV's in left arm due to hx vascular surgery left arm. Past Drug Use History: None Reported - Past Family History Brother(s) Family Medical History: Cancer, Deep Vein Thrombosis (DVT) Medications and Allergies Home Medications Medication Instructions Recorded Confirmed Type Montelukast [Singulair] 10 mg PO HS 01/07/17 07/31/19 History Atorvastatin [Lipitor] 10 mg PO DAILY 10/18/18 07/31/19 History Gabapentin [Neurontin] 100 mg PO BID@0800,1800 10/18/18 07/31/19 History Ferrous Sulfate [Feosol] 325 mg PO DAILY 07/31/19 07/31/19 History Gabapentin [Neurontin] 300 mg PO HS@2200 07/31/19 07/31/19 History Insulin Aspart [NovoLOG Flexpen] 10 units SQ AC-LUNCH 07/31/19 07/31/19 History Insulin Aspart [NovoLOG Flexpen] 16 units SQ AC-BRKFST 07/31/19 07/31/19 History Insulin Aspart [NovoLOG Flexpen] 16 units SQ AC-SUPPER 07/31/19 07/31/19 History Insulin Glargine,Hum.rec.anlog 50 unit SQ AC-BRKFST 07/31/19 07/31/19 History [Lantus Solostar] Isosorbide Mononitrate [Ismo] 20 mg PO BID 07/31/19 07/31/19 History Latanoprost/Pf [Latanoprost 0.005% 1 drop BOTH EYES HS 07/31/19 07/31/19 History Eye Drop] Levothyroxine Sodium [Synthroid] 100 mcg PO DAILY 07/31/19 07/31/19 History Nitroglycerin Sl Tabs [Nitrostat] 0.4 mg SUBLINGUAL Q5M PRN 07/31/19 07/31/19 History Oxybutynin Chloride [Ditropan XL] 10 mg PO DAILY 07/31/19 07/31/19 History Sevelamer [Renvela] 800 mg PO AC-BID 07/31/19 07/31/19 History Spironolactone [Aldactone] 25 mg PO DAILY 07/31/19 07/31/19 History amLODIPine [Norvasc] 10 mg PO DAILY 07/31/19 07/31/19 History Allergies Allergy/AdvReac Type Severity Reaction Status Date / Time No Known Allergies Allergy Verified 07/31/19 21:33 Physical Exam Vitals: Vital Signs Temp Pulse Pulse Resp BP BP Pulse Ox 08/01/19 08:00 97.6 F 65 125/59 94 L 08/01/19 03:18 98.2 F 60 18 123/65 95 08/01/19 03:17 64 18 08/01/19 00:00 98.5 F 64 18 138/72 97 07/31/19 23:21 18 07/31/19 21:39 98.0 F 18 167/74 96 07/31/19 21:08 61 18 151/90 97 Intake and Output 08/01/19 08/01/19 08/01/19 06:59 14:59 22:59 Intake Total 120 360 Balance 120 360 Intake: Oral 120 360 Other: Voiding Method Toilet # Voids 2 1 Weight 82.3 kg Results 07/31/19 19:51 07/31/19 19:51 Cardiac Enzymes 07/31/19 07/31/19 08/01/19 Range/Units 19:51 19:51 01:17 AST 24 (17-59) U/L Troponin I 0.017 0.014 (0.000-0.034) ng/mL 08/01/19 Range/Units 07:41 AST (17-59) U/L Troponin I 0.015 (0.000-0.034) ng/mL Coagulation 07/31/19 Range/Units 19:51 PT 10.1 (9.0-12.0) sec APTT 23.1 (22.0-30.0) sec Lipids 08/01/19 Range/Units 07:45 Triglycerides 148 (<150) mg/dL Cholesterol 128 (<200) mg/dL HDL Cholesterol 41 (40-60) mg/dL CBC 07/31/19 Range/Units 19:51 WBC 10.4 (3.8-10.6) k/uL RBC 3.96 L (4.30-5.90) m/uL Hgb 11.4 L (13.0-17.5) gm/dL Hct 33.8 L (39.0-53.0) % Plt Count 215 (150-450) k/uL Comprehensive Metabolic Panel 07/31/19 Range/Units 19:51 Sodium 140 (137-145) mmol/L Potassium 5.3 H (3.5-5.1) mmol/L Chloride 105 (98-107) mmol/L Carbon Dioxide 21 L (22-30) mmol/L BUN 78 H (9-20) mg/dL Creatinine 4.61 H (0.66-1.25) mg/dL Glucose 75 (74-99) mg/dL Calcium 10.5 H (8.4-10.2) mg/dL AST 24 (17-59) U/L ALT 21 (4-49) U/L Alkaline Phosphatase 84 (38-126) U/L Total Protein 8.0 (6.3-8.2) g/dL Albumin 4.6 (3.5-5.0) g/dL Current Medications Generic Name Dose Route Start Last Admin Trade Name Freq PRN Reason Stop Dose Admin Amlodipine Besylate 10 mg 08/01/19 09:00 08/01/19 08:38 Norvasc PO 10 mg DAILY [facility] Administration Aspirin 81 mg 08/02/19 09:00 Aspirin PO DAILY [facility] Atorvastatin Calcium 10 mg 08/01/19 09:00 08/01/19 08:37 Lipitor PO 10 mg DAILY [facility] Administration Cinacalcet 30 mg 08/08/19 09:00 Sensipar PO WEEKLY [facility] Ferrous Sulfate 325 mg 08/01/19 09:00 08/01/19 08:38 Feosol PO 325 mg DAILY [facility] Administration Gabapentin 100 mg 08/01/19 08:00 08/01/19 08:37 Neurontin PO 100 mg BID@0800,1800 [facility] Administration Gabapentin 300 mg 08/01/19 22:00 Neurontin PO HS@2200 [facility] Insulin Aspart 16 unit 08/01/19 17:30 Novolog SQ AC-SUPPER [facility] Insulin Aspart 16 unit 08/01/19 07:30 08/01/19 06:20 Novolog SQ Not Given AC-BRKFST [facility] Insulin Aspart 10 unit 08/01/19 12:30 08/01/19 12:49 Novolog SQ Not Given AC-LUNCH [facility] Insulin Detemir 50 unit 08/01/19 07:30 08/01/19 06:20 Levemir SQ Not Given AC-BRKFST [facility] Isosorbide Mononitrate 20 mg 08/01/19 09:00 08/01/19 08:38 Ismo PO 20 mg BID@0900,1600 [facility] Administration Latanoprost 1 drops 08/01/19 21:00 Xalatan 0.005% BOTH EYES HS [facility] Levothyroxine Sodium 100 mcg 08/01/19 06:30 08/01/19 06:23 Synthroid PO 100 mcg DAILY@0630 [facility] Administration Montelukast Sodium 10 mg 08/01/19 21:00 Singulair PO HS [facility] Nitroglycerin 0.4 mg 07/31/19 22:43 Nitrostat SUBLINGUAL Q5M PRN Chest Pain Oxybutynin Chloride 10 mg 08/01/19 09:00 08/01/19 08:38 Ditropan Xl PO 10 mg DAILY [facility] Administration Pantoprazole Sodium 40 mg 08/01/19 10:15 08/01/19 12:50 Protonix PO 40 mg AC-BID [facility] Administration Prochlorperazine Maleate 10 mg 08/01/19 00:00 Compazine PO Q6HR PRN Nausea And Vomiting Sevelamer Carbonate 800 mg 08/01/19 07:30 08/01/19 06:23 Renvela PO 800 mg AC-BID [facility] Administration Sodium Bicarbonate 650 mg 08/01/19 11:00 08/01/19 12:50 Sodium Bicarbonate Tab PO 650 mg BID [facility] Administration Intake and Output 08/01/19 08/01/19 08/01/19 06:59 14:59 22:59 Intake Total 120 360 Balance 120 360 Intake: Oral 120 360 Other: Voiding Method Toilet # Voids 2 1 Weight 82.3 kg 07/31/19 19:51 07/31/19 19:51 <Young Paris - Last Filed: 08/01/19 16:36> Physical Exam Vitals: Vital Signs Temp Pulse Pulse Resp BP BP Pulse Ox 08/01/19 12:00 66 94 L 08/01/19 08:00 97.6 F 65 125/59 94 L 08/01/19 03:18 98.2 F 60 18 123/65 95 08/01/19 03:17 64 18 08/01/19 00:00 98.5 F 64 18 138/72 97 07/31/19 23:21 18 07/31/19 21:39 98.0 F 18 167/74 96 07/31/19 21:08 61 18 151/90 97 Intake and Output 08/01/19 08/01/19 08/01/19 06:59 14:59 22:59 Intake Total 120 360 Balance 120 360 Intake: Oral 120 360 Other: Voiding Method Toilet # Voids 2 1 Weight 82.3 kg Results 07/31/19 19:51 07/31/19 19:51 Cardiac Enzymes 07/31/19 07/31/19 08/01/19 Range/Units 19:51 19:51 01:17 AST 24 (17-59) U/L Troponin I 0.017 0.014 (0.000-0.034) ng/mL 08/01/19 Range/Units 07:41 AST (17-59) U/L Troponin I 0.015 (0.000-0.034) ng/mL Coagulation 07/31/19 Range/Units 19:51 PT 10.1 (9.0-12.0) sec APTT 23.1 (22.0-30.0) sec Lipids 08/01/19 Range/Units 07:45 Triglycerides 148 (<150) mg/dL Cholesterol 128 (<200) mg/dL HDL Cholesterol 41 (40-60) mg/dL CBC 07/31/19 Range/Units 19:51 WBC 10.4 (3.8-10.6) k/uL RBC 3.96 L (4.30-5.90) m/uL Hgb 11.4 L (13.0-17.5) gm/dL Hct 33.8 L (39.0-53.0) % Plt Count 215 (150-450) k/uL Comprehensive Metabolic Panel 07/31/19 Range/Units 19:51 Sodium 140 (137-145) mmol/L Potassium 5.3 H (3.5-5.1) mmol/L Chloride 105 (98-107) mmol/L Carbon Dioxide 21 L (22-30) mmol/L BUN 78 H (9-20) mg/dL Creatinine 4.61 H (0.66-1.25) mg/dL Glucose 75 (74-99) mg/dL Calcium 10.5 H (8.4-10.2) mg/dL AST 24 (17-59) U/L ALT 21 (4-49) U/L Alkaline Phosphatase 84 (38-126) U/L Total Protein 8.0 (6.3-8.2) g/dL Albumin 4.6 (3.5-5.0) g/dL Current Medications Generic Name Dose Route Start Last Admin Trade Name Freq PRN Reason Stop Dose Admin Amlodipine Besylate 10 mg 08/01/19 09:00 08/01/19 08:38 Norvasc PO 10 mg DAILY [facility] Administration Aspirin 81 mg 08/02/19 09:00 Aspirin PO DAILY [facility] Atorvastatin Calcium 20 mg 08/01/19 21:00 Lipitor PO HS [facility] Cinacalcet 30 mg 08/08/19 09:00 Sensipar PO WEEKLY [facility] Ferrous Sulfate 325 mg 08/01/19 09:00 08/01/19 08:38 Feosol PO 325 mg DAILY [facility] Administration Gabapentin 100 mg 08/01/19 08:00 08/01/19 08:37 Neurontin PO 100 mg BID@0800,1800 [facility] Administration Gabapentin 300 mg 08/01/19 22:00 Neurontin PO HS@2200 [facility] Insulin Aspart 16 unit 08/01/19 17:30 Novolog SQ AC-SUPPER [facility] Insulin Aspart 16 unit 08/01/19 07:30 08/01/19 06:20 Novolog SQ Not Given AC-BRKFST [facility] Insulin Aspart 10 unit 08/01/19 12:30 08/01/19 12:49 Novolog SQ Not Given AC-LUNCH [facility] Insulin Detemir 50 unit 08/01/19 07:30 08/01/19 06:20 Levemir SQ Not Given AC-BRKFST [facility] Isosorbide Mononitrate 20 mg 08/01/19 09:00 08/01/19 08:38 Ismo PO 20 mg BID@0900,1600 [facility] Administration Latanoprost 1 drops 08/01/19 21:00 Xalatan 0.005% BOTH EYES HS [facility] Levothyroxine Sodium 100 mcg 08/01/19 06:30 08/01/19 06:23 Synthroid PO 100 mcg DAILY@0630 [facility] Administration Montelukast Sodium 10 mg 08/01/19 21:00 Singulair PO HS [facility] Nitroglycerin 0.4 mg 07/31/19 22:43 Nitrostat SUBLINGUAL Q5M PRN Chest Pain Oxybutynin Chloride 10 mg 08/01/19 09:00 08/01/19 08:38 Ditropan Xl PO 10 mg DAILY [facility] Administration Pantoprazole Sodium 40 mg 08/01/19 10:15 08/01/19 12:50 Protonix PO 40 mg AC-BID [facility] Administration Prochlorperazine Maleate 10 mg 08/01/19 00:00 Compazine PO Q6HR PRN Nausea And Vomiting Sevelamer Carbonate 800 mg 08/01/19 07:30 08/01/19 06:23 Renvela PO 800 mg AC-BID [facility] Administration Sodium Bicarbonate 650 mg 08/01/19 11:00 08/01/19 12:50 Sodium Bicarbonate Tab PO 650 mg BID [facility] Administration Intake and Output 08/01/19 08/01/19 08/01/19 06:59 14:59 22:59 Intake Total 120 360 Balance 120 360 Intake: Oral 120 360 Other: Voiding Method Toilet # Voids 2 1 Weight 82.3 kg 07/31/19 19:51 07/31/19 19:51
[2019-08-01 16:47] LABS: Glucose,Whole Blood 124 mg/dL (75-99)
--- NOTE | 2019-08-01 18:56 | CONS ---
CONSULTATION DATE OF DICTATION: 08/01/2019 REASON FOR CONSULTATION: Epigastric pain and dysphagia. HISTORY OF PRESENT ILLNESS: The patient is an 78-year-old pleasant white male who was admitted to the hospital with acute onset of severe epigastric pain associated with a sense of fullness in the throat area and difficulty swallowing that happened about 2 days ago. He had two other similar episodes in the last 2 weeks which lasted for a few minutes and resolved. However, the last episode prior to hospitalization lasted for almost an hour and it was very intense. The patient became very concerned, came to the emergency room, and was subsequently admitted to the hospital for further evaluation. Since being in the hospital, he did not have any of these episodes. Presently denies any abdominal pain. Reports no nausea, vomiting. He does feel a sensation of throat irritation and fullness in the throat area. He did have a barium esophagogram done that was completely within normal limits. PAST MEDICAL HISTORY: Significant for diabetes mellitus, hypertension, hyperlipidemia, COPD, hypercholesteremia, hypothyroidism. MEDICATIONS: Medications at home include Neurontin, Synthroid, Ditropan, Humalog, gabapentin, iron sulfate, calcitriol, Tylenol, Lipitor, Demadex, Singulair, aspirin and sodium bicarb. SOCIAL HISTORY: No smoking or alcohol use. PAST SURGICAL HISTORY: Cholecystectomy in October of last year for symptomatic gallstones, hernia repair, tonsillectomy, right shoulder replacement. REVIEW OF SYSTEMS: CARDIOPULMONARY: He denies any chest pain or shortness of breath. GENITOURINARY: He denies any dysuria or hematuria. MUSCULOSKELETAL: Unremarkable. SKIN: Unremarkable. ENDOCRINE: Unremarkable other than history of hypothyroidism. NEUROLOGY: Unremarkable. PSYCHIATRY: Unremarkable. ENT/VISION: Unremarkable. CONSTITUTIONAL: No recent weight loss. No fever, chills, night sweats. PHYSICAL EXAMINATION: Appears comfortable. No apparent distress. Vital signs are stable. HEENT examination unremarkable. Conjunctivae pink. Sclerae anicteric. Oral cavity no lesions. NECK: No JVD or lymph node enlargement. CHEST: Clear to auscultation. HEART: Regular rate and rhythm. ABDOMEN: Soft. Bowel sounds are positive. No organomegaly. EXTREMITIES: No pedal edema. SKIN: No rashes. NEUROLOGIC: Alert and oriented x3. No focal deficits. LABS/IMAGING: Labs from yesterday showed WBC 10.4, hemoglobin 11.4, platelets normal. Basic metabolic panel is within normal limits. Sodium 140, potassium 4.3, BUN 78, creatinine 4.61, calcium 10.5. ALT and AST, T-bilirubin and alkaline phosphatase are within normal limits. CT of the abdomen and pelvis is unremarkable. IMPRESSION: 1. Acute onset of severe epigastric pain/chest pain associated with dysphagia that happened prior to hospitalization. Etiology remains unclear. CT of the abdomen and pelvis was unremarkable. Barium esophagogram was unremarkable. Patient still complains of some fullness in his throat area and some difficulty swallowing and is very concerned about the symptoms. 2. Acute kidney injury superimposed on chronic kidney disease, stage IV. Dr. Pyle is following the patient closely. 3. Longstanding history of diabetes mellitus. 4. Hypercalcemia, for which further workup is ongoing. RECOMMENDATIONS: 1. Will proceed with an upper endoscopy tomorrow. I discussed with him risks, benefits and complications of the procedure and he is agreeable to it. 2. Repeat LFTs tomorrow. 3. Labs in the morning. Will follow with you closely. Thank you for this consultation. MMODL / IJN: [id number] /
[2019-08-01 20:58] LABS: Glucose,Whole Blood 160 mg/dL (75-99)
[2019-08-01] MEDS ORDERED: LATANOPROST 0.005% OPHTH DROPS 2.5 ML BTL BOTH EYES SCH (21:00)
[2019-08-01] MEDS ORDERED: ATORVASTATIN 20 MG TAB PO SCH (21:00)
[2019-08-01] MEDS ORDERED: MONTELUKAST 10 MG TAB PO SCH (21:00)
[2019-08-01] MEDS ORDERED: GABAPENTIN 300 MG CAP PO SCH (22:00)
--- NOTE | 2019-08-01 22:26 | HP ---
HISTORY AND PHYSICAL CHIEF COMPLAINT: Chest and epigastric pain. HISTORY OF PRESENT ILLNESS: This is another admission for this 78-year-old white male with poorly controlled insulin-dependent diabetes mellitus and end-stage renal disease. He is being considered for a fistula in the left arm at this time. He was home when he developed a combination of lower anterior chest and epigastric pain. It was not associated with diaphoresis, nausea, vomiting, eating, etc. He came to the emergency room, where his enzymes were normal, but there was concern that cardiac disease should be ruled out. He underwent a stress study last year which was unremarkable. He has been complaining of some dysphagia, more in the throat area. This will be evaluated. REVIEW OF SYSTEMS: He has had no neurologic problems, headaches, change in the vision or the hearing, shortness of breath, pleurisy, hemoptysis, sputum production, typical angina, palpitations, syncope, murmurs, rheumatic fever, etc. He has not had a history of hiatal hernia, gastritis, gallbladder disease, nausea, vomiting, diarrhea, melena, hematochezia, jaundice, hepatitis, etc. He recently underwent a cholecystectomy when his colon was inadvertently perforated. He does not have any nocturia and he has no dysuria, hematuria, flank pain, etc. He is followed by Nephrology. Diabetes has been better controlled in the last 6 months than previously. Past medical history, family history, and personal and social histories can be found in his hospital records. He is on numerous medications, which are detailed on his MAR. He does not smoke or drink. PHYSICAL EXAMINATION: Blood pressure is 136/74 with a pulse of 81, respirations of 19, and he is afebrile. In general he appeared to be overweight, in no acute distress. Skin color was normal. Skin was warm and dry. Lymph nodes were not enlarged. Head, ears, eyes, nose, mouth and throat were normal. Neck veins were not distended. Thyroid was not enlarged. Chest was clear. Cardiac exam was normal. Abdomen was soft and nontender and protuberant. Bowel sounds were present. Extremities were normal. Neurologically he was intact. ADMITTING DIAGNOSES: He is admitted to the hospital with the diagnoses: 1. Chest and epigastric pain, etiology unknown. 2. Dysphagia. 3. Rule out acute coronary syndrome. 4. Look for upper GI pathology, including the throat, esophagus and stomach. 5. Manage diabetes mellitus. 6. Echocardiogram. 7. Consults with Cardiology, Gastroenterology and Nephrology. MMODL / IJN: [id number] /
--- NOTE | 2019-08-01 22:47 | PN ---
PROGRESS NOTE CHIEF COMPLAINT: Chest and epigastric pain. HISTORY OF PRESENT ILLNESS: This gentleman is doing a little bit better and he has not had any significant discomfort since he came in. So far, his enzymes are normal. He is complaining of some dysphagia, and it is more in the throat than the chest. PHYSICAL EXAMINATION: His color is good. Head, ears, eyes, nose, mouth and throat are normal. The chest is clear. Cardiac exam is unremarkable. The abdomen is protuberant, soft and nontender. Extremities are normal. IMPRESSION: 1. Chest pain. 2. Epigastric pain. 3. Dysphagia. 4. End-stage renal disease. 5. Insulin-dependent diabetes mellitus. PLAN: 1. Barium swallow. 2. Consults with Cardiology, Nephrology, Gastroenterology. 3. Echocardiogram. 4. CT of the abdomen and chest. 5. Discharge planning. MMCAIOL / CLARITZAN: [id number] /
[2019-08-02] MEDS: LEVOTHYROXINE 100 MCG TAB PO SCH (06:00)
[2019-08-02] MEDS: SEVELAMER 800 MG TAB PO SCH ×2 (06:00→16:59)
[2019-08-02] MEDS: PANTOPRAZOLE 40 MG TABLET PO SCH ×2 (06:01→16:59)
[2019-08-02] MEDS: INSULIN ASPART (NovoLOG) 100 UNIT/ML VIAL SQ SCH ×3 (06:02→17:01)
[2019-08-02] MEDS: INSULIN DETEMIR (LEVEMIR) 100 UNIT/ML SYR SQ SCH (06:03)
[2019-08-02 06:10] LABS: Glucose,Whole Blood 127 mg/dL (75-99)
[2019-08-02 06:47] LABS: Albumin 3.9 g/dL (3.5-5.0); Calcium 10.3 mg/dL (8.4-10.2); Magnesium 1.9 mg/dL (1.6-2.3); Potassium 5.1 mmol/L (3.5-5.1); Total Bilirubin 0.5 mg/dL (0.2-1.3)
[2019-08-02] MEDS: SODIUM BICARBONATE TAB 650 MG TAB PO SCH (08:42)
[2019-08-02] MEDS: FERROUS SULFATE 325 MG TAB PO SCH (08:42)
[2019-08-02] MEDS: GABAPENTIN 100 MG CAP PO SCH ×2 (08:42→16:59)
[2019-08-02] MEDS: amLODIPine 10 MG TAB PO SCH (08:42)
[2019-08-02] MEDS: OXYBUTYNIN 10 MG TAB.ER.24 PO SCH (08:47)
[2019-08-02] MEDS: ISOSORBIDE MONONITRATE 20 MG TAB PO SCH ×2 (08:47→17:10)
--- NOTE | 2019-08-02 08:53 | P.PN ---
Subjective Patient is seen in follow-up for acute kidney injury on chronic kidney disease. Renal function a little better. Scheduled for EGD today. Good urine output. No vomiting or diarrhea. No edema. Vital signs are stable. General: The patient appeared well nourished and normally developed. HEENT: Head exam is unremarkable. Neck is without jugular venous distension. LUNGS: Lungs are clear to auscultation and percussion. Breath sounds decreased. HEART: Rate and Rhythm are regular. First and second heart sounds normal. No murmurs, rubs or gallops. ABDOMEN: Abdominal exam reveals normal bowel sounds. Non-tender and non- distended. No evidence of peritonitis. EXTREMITITES: No clubbing, cyanosis, or edema. Objective - Vital Signs Vital signs: Vital Signs Temp 98 F 08/02/19 03:07 Pulse 53 L 08/02/19 03:07 Resp 18 08/02/19 03:07 BP 147/69 08/02/19 03:07 Pulse Ox 97 08/02/19 03:07 Intake & Output 08/01/19 08/02/19 08/02/19 18:59 06:59 18:59 Intake Total 600 200 Balance 600 200 Weight 80 kg Intake: Oral 600 200 Other: # Voids 1 1 1 # Bowel Movements 0 - Labs CBC & Chem 7: 07/31/19 19:51 08/02/19 05:54 Labs: Abnormal Lab Results - Last 24 Hours (Table) 08/01/19 08/01/19 08/01/19 Range/Units 12:42 16:42 20:52 Chloride (98-107) mmol/L Carbon Dioxide (22-30) mmol/L BUN (9-20) mg/dL Creatinine (0.66-1.25) mg/dL Glucose (74-99) mg/dL POC Glucose (mg/dL) 127 H 124 H 160 H (75-99) mg/dL Calcium (8.4-10.2) mg/dL 08/02/19 08/02/19 Range/Units 05:54 06:02 Chloride 111 H (98-107) mmol/L Carbon Dioxide 19 L (22-30) mmol/L BUN 76 H (9-20) mg/dL Creatinine 4.18 H (0.66-1.25) mg/dL Glucose 118 H (74-99) mg/dL POC Glucose (mg/dL) 127 H (75-99) mg/dL Calcium 10.3 H (8.4-10.2) mg/dL Assessment and Plan Plan: Assessment: 1. Acute kidney injury mostly prerenal from diuresis. Creatinine 4.61 on admission - 4.18 today. 2. 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 3. Hypertension with chronic kidney disease. Controlled. 4. Chest pain, currently improved. Cardiology following. 5. Chronic kidney disease mineral bone disease maintained on Renvela. 6. Insulin-dependent diabetes mellitus. 7. Hypercalcemia. Recent workup revealed PTH of 114. Patient's vitamin D and 1, 25 daily levels were normal. Alfa level was normal. Urine electrophoresis revealed glomerular and tubular proteinuria. He did have elevated kappa light chains. Patient was referred to oncology. No evidence of parathyroid adenoma on imaging. 8. Metabolic acidosis secondary to chronic kidney disease Maintained on oral sodium bicarbonate. 9. Dysphagia. Scheduled for EGD today. Plan: Continue to hold diuretics. Continue sensipar 30 mg once weekly. Patient will need to follow-up with oncology outpatient. No urgent need for renal replacement therapy at this time. Patient has a matured left upper extremity AV fistula. Follow-up echocardiogram.
[2019-08-02] MEDS ORDERED: ASPIRIN 81 MG PO SCH (09:00)
--- NOTE | 2019-08-02 10:00 | ECHOF ---
Referral Reason:chest pain, SOB, DM, CKD MEASUREMENTS -------- HEIGHT: 170.2 cm WEIGHT: 82.1 kg BP: IVSd: 1.6 cm (0.6 - 1.1) LVIDd: 3.8 cm (3.9 - 5.3) LVPWd: 1.6 cm (0.6 - 1.1) IVSs: 2.0 cm LVIDs: 2.1 cm LVPWs: 1.7 cm LAESV Index (A-L): 31.40 ml/m Ao Diam: 3.5 cm (2.0 - 3.7) AV Cusp: 1.8 cm (1.5 - 2.6) LA Diam: 2.3 cm (2.7 - 3.8) MV EXCURSION: 15.271 mm (> 18.000) MV EF SLOPE: 45 mm/s (70 - 150) EPSS: 0.5 cm MV E Jaswinder: 1.10 m/s MV DecT: 330 ms MV A Jaswinder: 1.52 m/s MV E/A Ratio: 0.72 AV maxP.55 mmHg AV meanP.11 mmHg RAP: 15.00 mmHg RVSP: 31.70 mmHg TAPSE: 24.21 mm FINDINGS -------- Sinus rhythm. This was a technically good study. The left ventricular size is normal. There is moderate concentric left ventricular hypertrophy. O verall left ventricular systolic function is normal with, an EF between 55 - 60 %. Normal LAP Grade 1 Diastolic Dysfunction. The right ventricle is normal in size. The right ventricular systolic function is normal. LA is midly dilated 29-33ml/m2. The right atrial size is normal. Aortic valve is trileaflet and is mildly thickened. There is mild aortic stenosis present. Peak/m jude gradient across the Aortic Valve is 17.55mmHg / 9.11mmHg. The mitral valve is normal. The mitral valve leaflets are mildly thickened. Mild mitral annular c alcification present. Mild mitral regurgitation is present. The peak and mean MV gradients are 1 0.66mmHg 2.66mmHg as measured by doppler. [id number] mitral stenosis. The tricuspid valve appears structurally normal. Mild tricuspid regurgitation present. Right vent ricular systolic pressure is normal at < 35 mmHg. There is no pulmonic regurgitation present. The aortic root size is normal. The inferior vena cava is mildly dilated. There is no pericardial effusion. CONCLUSIONS -------- 1. Sinus rhythm. 2. This was a technically good study. 3. The left ventricular size is normal. 4. There is moderate concentric left ventricular hypertrophy. 5. Overall left ventricular systolic function is normal with, an EF between 55 - 60 %. 6. Normal LAP Grade 1 Diastolic Dysfunction. 7. The right ventricle is normal in size. 8. The right ventricular systolic function is normal. 9. LA is midly dilated 29-33ml/m2. 10. The right atrial size is normal. 11. Aortic valve is trileaflet and is mildly thickened. 12. There is mild aortic stenosis present. 13. Peak/mean gradient across the Aortic Valve is 17.55mmHg / 9.11mmHg. 14. The mitral valve is normal. 15. The mitral valve leaflets are mildly thickened. 16. Mild mitral annular calcification present. 17. Mild mitral regurgitation is present. 18. The peak and mean MV gradients are 10.66mmHg 2.66mmHg as measured by doppler. 19. [id number] mitral stenosis. 20. The tricuspid valve appears structurally normal. 21. Mild tricuspid regurgitation present. 22. Right ventricular systolic pressure is normal at < 35 mmHg. 23. There is no pulmonic regurgitation present. 24. The aortic root size is normal. 25. The inferior vena cava is mildly dilated. 26. There is no pericardial effusion. AIDS NURSE: Hazel James [facility]
[2019-08-02 11:40] VITALS: RESP 12
[2019-08-02 11:47] LABS: Glucose,Whole Blood 127 mg/dL (75-99)
[2019-08-02] MEDS ORDERED: LIDOCAINE 1% INJ 10MG/ML (20 ML MDV) ONE (12:40)
[2019-08-02] MEDS ORDERED: PROPOFOL 10 MG/ML 20 ML VIAL IV ONE (12:40)
[2019-08-02] MEDS ORDERED: SODIUM CHLORIDE 0.9% 500 ML 500 ML IV ONE (12:48)
--- NOTE | 2019-08-02 13:00 | P.PCN ---
Date of Procedure: 08/02/19 Procedure(s) Performed: BRIEF HISTORY: Patient is a 78-year-old, pleasant, male, admitted hospital with acute onset of epigastric pain and atypical chest pain as well as some difficulty swallowing. He had an upper GI series that was reported as normal. In the meantime he continues to have symptoms and has sensation of food stuck in his throat area and hence is scheduled for an upper endoscopy to evaluate further. PROCEDURE PERFORMED: Esophagogastroduodenoscopy with biopsy. PREOPERATIVE DIAGNOSIS: Dysphagia and epigastric pain. IV sedation per anesthesia. PROCEDURE: After informed consent was obtained, the patient was brought into the endoscopy unit. IV sedation was administered by Anesthesia under continuous monitoring. Initially the Olympus GIF-140 video endoscope was inserted into the mouth. Esophagus intubated without any difficulty. It was gradually advanced into the stomach and duodenum and carefully examined. The bulb and the second part of the duodenum appeared normal. The scope at this time was withdrawn to the stomach, adequately insufflated with air, and upon careful examination, mucosa of the antrum, body, cardia and the fundus appeared normal. The scope was then withdrawn into the esophagus. The GE junction was located at 39 cm from the incisors. The esophagus appeared normal. There were no erosions or ulcerations seen , multiple biopsies were done from the mid and distal esophagus and the patient tolerated the procedure well. IMPRESSION: 1. Normal-appearing esophagus which was slightly tortuous distally but no evidence of esophagitis or esophageal stricture. 2. Normal-appearing stomach and duodenum RECOMMENDATIONS: The findings of this examination were discussed with the patient as well as his family. At this time will await the biopsy results. Diet will be advanced as tolerated.
[2019-08-02 13:45] VITALS: TEMP 96.9
--- NOTE | 2019-08-02 15:21 | P.PN ---
Subjective This is Adwoa Rosen PA-C dictating a progress note on this patient The patient was interviewed and examined by me as well as by Dr. Paris Case discussed with Dr. Paris and he agrees with the plan of care IMPRESSION / ASSESSMENT: Atypical chest discomfort which is associated with dysphasia, no acute changes on EKG, troponins normal 2 Progressive dyspnea on exertion with associated chest discomfort Dysphasia, GI following, awaiting endoscopy CKD, nephrology following Mitral stenosis [place], using CPAP Hypertension, controlled Diabetes Echocardiogram showing moderate concentric LVH, EF 55-60%, mild aortic stenosis, mild to moderate mitral stenosis PLAN: Continue current medication regimen including antihypertensive therapy Consider repeating stress test to evaulate worsening shortness of breath and chest tightness once his workup for dysphagia is complete HPI/interval history Patient is an 78-year-old male with a past medical history significant for hypertension, diabetes and CKD who presented with complaints of dysphasia and chest discomfort. He underwent workup with a barium swallow which did not show any significant abnormalities to account for the patient's symptoms. He is currently nothing by mouth and is awaiting endoscopy. No arrhythmias on telemetry. Patient seen and examined sitting in the chair. States he hasn't had any symptoms because he hasn't had anything to eat. States he hasn't been short of breath with walking but hasn't been walking far enough distance to get his typical symptoms. No chest pain. EXAMINATION She is afebrile, pulse in the 60s, respirations 12, blood pressure 135/60, o xygen saturation 98% on room air Patient seen and examined sitting up in the chair, in no acute distress Lungs are clear to auscultation bilaterally Heart is regular, soft systolic murmur audible Extremities warm no edema REVIEW OF LABS, ECG Potassium 5.1, BUN 76, creatinine 4.18 LDL 57 Objective - Vital Signs Vital signs: Vital Signs Temp 96.9 F L 08/02/19 12:00 Pulse 63 08/02/19 12:00 Resp 12 08/02/19 12:00 BP 135/60 08/02/19 12:00 Pulse Ox 98 08/02/19 12:00 Intake & Output 08/01/19 08/02/19 08/02/19 18:59 06:59 18:59 Intake Total 600 200 325 Balance 600 200 325 Weight 80 kg Intake: IV 100 Oral 600 200 225 Other: Voiding Method Toilet # Voids 1 1 2 # Bowel Movements 0 - Labs CBC & Chem 7: 07/31/19 19:51 08/02/19 05:54 Labs: Abnormal Lab Results - Last 24 Hours (Table) 08/01/19 08/01/19 08/02/19 Range/Units 16:42 20:52 05:54 Chloride 111 H (98-107) mmol/L Carbon Dioxide 19 L (22-30) mmol/L BUN 76 H (9-20) mg/dL Creatinine 4.18 H (0.66-1.25) mg/dL Glucose 118 H (74-99) mg/dL POC Glucose (mg/dL) 124 H 160 H (75-99) mg/dL Calcium 10.3 H (8.4-10.2) mg/dL 08/02/19 08/02/19 Range/Units 06:02 11:46 Chloride (98-107) mmol/L Carbon Dioxide (22-30) mmol/L BUN (9-20) mg/dL Creatinine (0.66-1.25) mg/dL Glucose (74-99) mg/dL POC Glucose (mg/dL) 127 H 127 H (75-99) mg/dL Calcium (8.4-10.2) mg/dL
[2019-08-02 16:45] LABS: Glucose,Whole Blood 132 mg/dL (75-99)
[2019-08-02 17:35] VITALS: BP 149/65; PULSE 71
--- NOTE | 2019-08-03 00:02 | DS ---
DISCHARGE SUMMARY CHIEF COMPLAINT: Chest pain. HISTORY OF PRESENT ILLNESS AND PHYSICAL EXAM: Details of this man's history and physical can be found in the initial workup. LABORATORY STUDIES: While he was the hospital, he had laboratory studies, details of which can be found in the laboratory section of his chart. COURSE IN HOSPITAL: After admission, he was placed on bedrest and started on intravenous fluids and had serial EKGs and enzymes. Renal function was followed. He was seen by Cardiology and echocardiogram was done. It showed well-preserved ejection fraction. He is also seen by Nephrology. Because of his dysphagia, he was seen by Gastroenterology and they did upper GI endoscopy, which is unremarkable. After that, it was felt he could be discharged. He will go home on his usual activity, diet and medication along with Protonix 40 mg once a day and be seen in the office in several days. FINAL DIAGNOSES: 1. Chest pain. 2. Epigastric pain. 3. Dysphagia. 4. Insulin-dependent diabetes mellitus. 5. End-stage renal disease. OPERATIONS: Endoscopy. CONSULTATIONS: Cardiology, gastroenterology and Nephrology. He is improved. MMODL / IJN: [id number] /
[2019-08-08] MEDS ORDERED: CINACALCET 30 MG TAB PO SCH (09:00)
== END 2019-08-02 17:56 | disposition home or self-care (01) ==
LOC: EC 18:49 → 3SCARD 20:59
PROVIDERS: ADMIT Family Medicine; ATTEND Family Medicine
DX: R07.89 Other chest pain (principal); K21.0 Gastro-esophageal reflux disease with esophagitis; E11.42 Type 2 diabetes mellitus with diabetic polyneuropathy; I12.0 Hypertensive chronic kidney disease with stage 5 chronic kidney disease or end stage renal disease; E11.22 Type 2 diabetes mellitus with diabetic chronic kidney disease; N18.6 End stage renal disease; N17.9 Acute kidney failure, unspecified; M19.90 Unspecified osteoarthritis, unspecified site; G47.33 Obstructive sleep apnea (adult) (pediatric); E03.9 Hypothyroidism, unspecified; E78.2 Mixed hyperlipidemia; J44.9 Chronic obstructive pulmonary disease, unspecified; I25.10 Atherosclerotic heart disease of native coronary artery without angina pectoris; E83.52 Hypercalcemia; I44.0 Atrioventricular block, first degree; M89.8X9 Other specified disorders of bone, unspecified site; E87.2 Acidosis; R91.8 Other nonspecific abnormal finding of lung field; K57.90 Diverticulosis of intestine, part unspecified, without perforation or abscess without bleeding; J98.11 Atelectasis; R93.1 Abnormal findings on diagnostic imaging of heart and coronary circulation; I08.8 Other rheumatic multiple valve diseases; Z79.82 Long term (current) use of aspirin; Z79.899 Other long term (current) drug therapy; Z79.4 Long term (current) use of insulin; Z79.890 Hormone replacement therapy; Z87.442 Personal history of urinary calculi; Z90.49 Acquired absence of other specified parts of digestive tract; Z98.890 Other specified postprocedural states; Z96.611 Presence of right artificial shoulder joint; Z90.89 Acquired absence of other organs; Z99.89 Dependence on other enabling machines and devices; Z82.49 Family history of ischemic heart disease and other diseases of the circulatory system
CPT/HCPCS: 93005 ×2; 99285; 36415; 93306; 97161; 88305; 83880 ×2; 80061; 80053 ×2; 83735 ×2; 84484 ×2; 85025; 85610; 85730; 74220; 71046; 71250; 74150; 78071; 43239; G0378 ×3; A9500; J2001; J2704

== ENCOUNTER → 2019-08-17 | Outpatient (CLI) | payer MEDICARE ==
[2019-08-17 11:14] LABS: Appearance,Urine Clear (Clear); Bilirubin,Urine Negative (Negative); Blood,Urine Small (Negative); Color,Urine Light Yellow; Glucose,Urine (UA) 1+ (Negative); Ketones,Urine Negative (Negative); Leukocyte Esterase,Urine Negative (Negative); Nitrite,Urine Negative (Negative); Protein,Urine 2+ (Negative); RBC,Urine 1 /hpf (0-5); Specific Gravity,Urine 1.013 (1.001-1.035); Squamous Epithelial Cell,Urine 1 /hpf (0-4); Urobilinogen,Urine <2.0 mg/dL (<2.0); WBC,Urine 1 /hpf (0-5)
[2019-08-17 11:19] LABS: Basophils % (A) 1 %; Eosinophils # (A) 0.5 k/uL (0-0.7); Eosinophils % (A) 6 %; HCT 31.6 % (39.0-53.0); HGB 10.7 gm/dL (13.0-17.5); Lymphocytes # (A) 1.2 k/uL (1.0-4.8); Lymphocytes % (A) 15 %; MCH 28.9 pg (25.0-35.0); MCHC 33.9 g/dL (31.0-37.0); MCV 85.3 fL (80.0-100.0); Mean Platelet Volume 7.9; Monocytes # (A) 0.4 k/uL (0-1.0); Monocytes % (A) 5 %; Neutrophils # (A) 5.8 k/uL (1.3-7.7); Neutrophils % (A) 71 %; Platelet Count 197 k/uL (150-450); RDW 14.7 % (11.5-15.5); WBC 8.2 k/uL (3.8-10.6)
[2019-08-17 16:24] LABS: % Iron Saturation 20.35 (15.00-50.00); African American GFR (CKD) 14.4 (60.0-200.0); Albumin 4.4 g/dL (3.80-4.90); Albumin/Globulin Ratio 2.1 (1.60-3.17); Anion Gap 10.4 mmol/L (4.00-12.00); BUN/Creat Ratio 17.86 Ratio (12.00-20.00); Calcium 9.5 mg/dL (8.7-10.3); Carbon Dioxide 20.6 mmol/L (21.6-31.8); Globulin 2.1 g/dL (1.6-3.3); Magnesium 1.8 mg/dL (1.5-2.4); Non-African American GFR(CKD) 12.4 (60.0-200.0); Phosphorus 5.2 mg/dL (2.4-5.1); Potassium 5.6 mmol/L (3.5-5.5); Total Bilirubin 0.5 mg/dL (0.3-1.2); Total Protein 6.5 g/dL (6.2-8.2); Uric Acid 5.6 mg/dL (3.7-8.7)
[2019-08-17 17:46] LABS: Urine Creatinine 65.6 mg/dL
== END | disposition home or self-care (01) ==
LOC: LABWHC1 10:22
PROVIDERS: ATTEND Internal Medicine
DX: N18.4 Chronic kidney disease, stage 4 (severe) (principal); D63.1 Anemia in chronic kidney disease; N39.0 Urinary tract infection, site not specified; N25.81 Secondary hyperparathyroidism of renal origin; M10.9 Gout, unspecified; E55.9 Vitamin D deficiency, unspecified; R80.9 Proteinuria, unspecified
CPT/HCPCS: 36415; 80053; 81001; 82043; 82306; 82570; 82728; 83540; 83550; 83735; 83970; 84100; 84550; 85025

== ENCOUNTER 2019-08-31 11:57 | Observation (INO) | payer MEDICARE ==
[~2019-08-31 11:57] MED LIST changes: -DEXAMETHASONE SOD PHOSPHATE 10 MG/ML 1 ML VIAL IV ONE; -HYDROmorphone 0.5 MG/0.5 ML SYRINGE IVP PRN; -LIDOCAINE 1% 20 ML VIAL (10MG/ML) FOR IV START INTRADERMA PRN; -MIDAZOLAM 2 MG/2 ML VIAL IV PRN; -SCOPOLAMINE 1.5MG/72HR PATCH TRANSDERM ONE; -ceFAZolin IN SWFI 2 GM/20 ML SYRINGE IVP ONE
[2019-08-31] MEDS ORDERED: LACTATED RINGERS 1,000 ML IV ONE (12:28)
[2019-08-31] MEDS ORDERED: LIDOCAINE 1% (10MG/ML) FOR IV START INTRADERMA ONE (12:28)
[2019-08-31 12:34] LABS: Glucose,Whole Blood 123 mg/dL (75-99)
[2019-08-31] MEDS ORDERED: NEOSTIGMINE 1 MG/ML 10 ML VIAL ONE (15:01)
[2019-08-31] MEDS ORDERED: fentaNYL (PF) 50 MCG/ML 2 ML AMP ONE (15:01)
[2019-08-31] MEDS ORDERED: KETAMINE 10 MG/ML 20 ML VIAL ONE (15:01)
[2019-08-31] MEDS ORDERED: PROPOFOL 10 MG/ML 20 ML VIAL IV ONE (15:01)
[2019-08-31] MEDS ORDERED: ROCURONIUM BROMIDE 10 MG/ML 5 ML VIAL IV ONE (15:01)
[2019-08-31] MEDS ORDERED: GLYCOPYRROLATE 0.2 MG/ML 2 ML VIAL ONE (15:01)
[2019-08-31] MEDS ORDERED: MIDAZOLAM 2 MG/2 ML VIAL ONE (15:01)
[2019-08-31] MEDS ORDERED: BUPIVACAIN-EPI 0.5%-1:200,000 30 ML VIAL SQ ONE ×2 (15:30)
[2019-08-31] MEDS ORDERED: MINERAL OIL 1 APPLIC/ML OIL TOPICAL ONE (15:33)
--- NOTE | 2019-08-31 16:24 | P.OP ---
Date of Procedure: 08/31/19 Procedure(s) Performed: PREOPERATIVE DIAGNOSIS: Renal failure POSTOPERATIVE DIAGNOSIS: Same PROCEDURE: Attempted peritoneal dialysis catheter insertion, diagnostic laparoscopy SURGEON: Cindi EBL: Minimal ANESTHESIA: General COMPLICATIONS: None OPERATIVE PROCEDURE: The patient was placed in the operative table in the supine position. His abdomen was prepped and draped in usual sterile fashion. A small vertical incision was made in the left periumbilical location. Dissection down through the subcutaneous tissues took place using electrocautery. The anterior rectus was divided vertically using the scalpel. The rectus was bluntly. The posterior rectus was visualized. An 0 Vicryl pursestring was placed. A small opening in the posterior rectus fascia and peritoneum took place using a Metzenbaum scissors. There was found to be adhesions to the peritoneum. There was no iatrogenic bowel injury although I didn't visualize bowel as I was doing my blunt dissection. No serosal tears were identified. At that point the patient was placed under general anesthesia. A 5 mm optical troc ar was used into the peritoneal cavity in the left upper quadrant. Insufflation took place to 15 mmHg. The patient was noted to have fairly dense adhesions involving both the midline right paramedian and left paramedian location in addition to significant pelvic adhesions. At this point it was decided that peritoneal dialysis was not a viable option. The pneumoperitoneum was evacuated. The pursestring was tied down to close the opening in the posterior rectus fascia. The anterior rectus fascia was then reapproximated using a running 0 Vicryl stitch. The subcutaneous tissues reprepped using 3-0 Vicryl sutures and the skin using 4-0 Monocryl sutures. The trocar incision was closed using a single 4-0 Monocryl stitch. Skin glue was then applied to both locations. DISPOSITION: Stable to recovery room Postoperatively I discussed the case with his public relations associate Dr. Pyle. Arrangements will be made for admission to the hospital under medical service because of a diagnosis of hyperkalemia. Patient may require inpatient hemodialysis at this point. Family was notified of the operative findings.
[2019-08-31 16:45] LABS: Glucose,Whole Blood 122 mg/dL (75-99)
[2019-08-31] MEDS: SODIUM CHLORIDE 0.9% 1,000 ML IV SCH (18:55)
[2019-08-31 20:47] LABS: Glucose,Whole Blood 137 mg/dL (75-99)
[2019-08-31] MEDS: GABAPENTIN 300 MG CAP PO SCH (22:03)
[2019-08-31] MEDS: LATANOPROST 0.005% OPHTH DROPS 2.5 ML BTL BOTH EYES SCH (22:03)
[2019-08-31] MEDS: MONTELUKAST 10 MG TAB PO SCH (22:03)
[2019-09-01 06:18] LABS: Glucose,Whole Blood 101 mg/dL (75-99)
[2019-09-01 06:23] LABS: HCT 35.4 % (39.0-53.0); HGB 11.4 gm/dL (13.0-17.5); MCH 27.6 pg (25.0-35.0); MCHC 32.3 g/dL (31.0-37.0); MCV 85.6 fL (80.0-100.0); Platelet Count 202 k/uL (150-450); RBC 4.13 m/uL (4.30-5.90); WBC 10.6 k/uL (3.8-10.6)
[2019-09-01] MEDS: INSULIN ASPART (NovoLOG) 100 UNIT/ML VIAL SQ SCH ×4 (06:25→21:03)
[2019-09-01 06:44] LABS: Calcium 9.5 mg/dL (8.4-10.2); Potassium 5.7 mmol/L (3.5-5.1)
[2019-09-01] MEDS: SEVELAMER 800 MG TAB PO SCH ×2 (06:58→18:21)
[2019-09-01] MEDS: INSULIN DETEMIR (LEVEMIR) 100 UNIT/ML SYR SQ SCH (06:58)
[2019-09-01] MEDS: PANTOPRAZOLE 40 MG TABLET PO SCH ×2 (06:58→18:21)
[2019-09-01 06:59] LABS: Glucose,Whole Blood 106 mg/dL (75-99)
[2019-09-01] MEDS ORDERED: MIDAZOLAM 2 MG/2 ML VIAL IV PRN (07:58)
[2019-09-01] MEDS ORDERED: LIDOCAINE 1% (10MG/ML) FOR IV START INTRADERMA PRN (07:58)
[2019-09-01] MEDS ORDERED: LACTATED RINGERS 1,000 ML IV SCH (07:58)
[2019-09-01] MEDS ORDERED: fentaNYL (PF) 50 MCG/ML 2 ML AMP IV PRN (07:58)
[2019-09-01] MEDS ORDERED: INSULIN REGULAR 100 UNIT/ML VIAL IV ONE (08:00)
[2019-09-01] MEDS ORDERED: DEXTROSE 10 % IN WATER 250 ML IV STA (08:03)
[2019-09-01] MEDS: FERROUS SULFATE 325 MG TAB PO SCH (08:49)
[2019-09-01] MEDS: ISOSORBIDE MONONITRATE 20 MG TAB PO SCH ×2 (08:49→21:15)
[2019-09-01] MEDS: amLODIPine 10 MG TAB PO SCH (08:49)
[2019-09-01] MEDS: GABAPENTIN 100 MG CAP PO SCH ×2 (08:49→18:21)
[2019-09-01] MEDS: OXYBUTYNIN 10 MG TAB.ER.24 PO SCH (08:49)
[2019-09-01] MEDS: DEXAMETHASONE SOD PHOSPHATE 10 MG/ML 1 ML VIAL IV ONE ×2 (08:50→09:22)
--- NOTE | 2019-09-01 10:43 | CONS ---
CONSULTATION REASON FOR CONSULT: Renal failure. HISTORY OF PRESENT ILLNESS: Patient is an 79-year-old male with history of CKD stage V secondary to diabetic kidney disease. His serum creatinine has been around 4 mg/dL recently. The patient does have an underlying AV fistula in his left arm which is about 3 years old. However, it needs transposition. Patient was actually scheduled for PD catheter insertion as he was interested in PD. Dr. Puente attempted the procedure yesterday. However, the catheter was not placed as there was significant scarring noted. Patient's potassium was elevated at 6.1 yesterday. Therefore, he was hospitalized. This morning, his potassium is down to 5.7. Patient states he has good appetite. He denies any nausea and vomiting. There is no increased weakness or fatigue. He has adequate urine output as well. I have discussed with the patient regarding further plans regarding options for dialysis, where at this time we need to proceed with vascular axis in preparation for hemodialysis down the road as CT is not an option currently. At this time, patient does not need to be dialyzed on an emergent basis. PAST MEDICAL HISTORY: CKD stage IV to V, currently at stage V, type 2 diabetes, osteoarthritis, obstructive sleep apnea, hypothyroidism, neuropathy, CKD mineral bone disorder, history of nephrolithiasis. PAST SURGICAL HISTORY: Left arm AV fistula, back surgery, cholecystectomy, hernia repair, appendectomy, tonsillectomy, right shoulder arthroplasty, left shoulder arthroscopy. SOCIAL HISTORY: Negative for smoking, drug abuse or alcohol abuse. MEDICATIONS: At home prior to admission included Norvasc, Renvela, Protonix, Ditropan, Nitrostat, Singulair, Synthroid, insulin, Neurontin, Lipitor, iron. ALLERGIES: None. REVIEW OF SYSTEMS: As per HPI. Other systems negative. PHYSICAL EXAMINATION: On examination, patient is comfortable, awake, not in any acute distress. Blood pressure is 169/74, heart rate 56 per minute, he is afebrile. Examination of the heart S1, S2. Examination of the lungs, bilateral breath sounds are heard. Abdomen is soft, non-tender. Examination of the lower extremities shows no significant edema. SHIPPING PROCESSOR exam grossly intact. No expressed asterixis noted. LABS: Show sodium 143, potassium 5.7, chloride 112, CO2 is 19, BUN 60, creatinine 4.15, hemoglobin 11.4. ASSESSMENT: 1. CKD stage V secondary to diabetic kidney disease. Renal function close to baseline. The patient does not need emergency dialysis at this point. We can continue to pursue starting hemodialysis as outpatient. We will consult Vascular Surgery for further intervention on the AV fistula, hopefully so that it can be ready in time. In the meantime, if patient needs to start sooner, we will need to dialyze him with a IJ PermCath. 2. Hyperkalemia associated with advanced renal failure. Will treat with insulin and D50. I will avoid Kayexalate at this time since patient just had abdominal surgery. He will be maintained on sodium bicarb as well which will help with the hyperkalemia and patient is advised regarding importance of controlling his blood sugars and avoiding high potassium containing foods. He is also advised to avoid constipation. 3. Hypertension, controlled. 4. CKD mineral bone disorder, maintained on Renvela at home. Will resume phosphate binders. PLAN: Vascular Surgery consult, add oral sodium bicarb. Treat hyperkalemia with insulin and D50 and repeat labs in a.m. Check UA as patient is complaining of increased urinary frequency Thank you for this consultation. Will continue to follow the patient with you during his hospitalization. MMODL / IJN: [id number] /
--- NOTE | 2019-09-01 11:07 | HP ---
HISTORY AND PHYSICAL CHIEF COMPLAINT: Renal failure. HISTORY OF PRESENT ILLNESS: This is a gentleman who was admitted yesterday after a failed attempt to place a peritoneal dialysis catheter due to excessive scarring. REVIEW OF SYSTEMS: He has not had any fever, chills, headache, chest pain, abdominal pain, nausea, vomiting, etc. He may be having difficulty voiding. Review of systems now is otherwise unremarkable and he has no other complaints. PAST MEDICAL HISTORY, FAMILY HISTORY, PERSONAL AND SOCIAL HISTORY: Reveal he is not allergic to medication. He is currently on carvedilol 3.125 twice a day, atorvastatin 80 once a day, Lantus 50 units once a day, Renvela 800 mg twice a day, Protonix 40 mg twice a day, oxybutynin ES 10 mg once a day, levothyroxine 0.1 once a day, vitamin D, montelukast 10 mg once a day, isosorbide mononitrate twice a day, sodium bicarb 650 mg t.i.d., NovoLog 16 units a.c. meals, amlodipine 10 mg once a day, ferrous sulfate 325 mg once a day, Nitrostat p.r.n., gabapentin 100 mg twice a day, it was 3 at bedtime, torsemide 20 mg 2 tablets once a day, 81 mg of aspirin, and a stool softener. Otherwise unremarkable or noncontributory. He has had an appendectomy, herniorrhaphy, T and A, right shoulder replacement, arthroscopy left shoulder, low back surgery and arthroscopic of the right knee. He does not smoke or drink. PHYSICAL EXAMINATION: Blood pressure 114/42, pulse 82, respirations 18 and he is afebrile. GENERAL: He appeared to be overweight in no acute distress. Skin color is normal, skin is warm and dry. Lymph nodes not enlarged. Head, ears, eyes, nose, mouth, and throat were normal and chest is clear to auscultation. Cardiac exam demonstrated normal sinus rhythm and no murmurs or extra sounds. Abdomen is soft and protuberant. Bowel sounds present. Extremities were normal and neurologically he is intact. IMPRESSION: 1. End-stage renal disease. 2. Failed attempt at placement of peritoneal dialysis catheter. 3. Coronary artery disease. 4. Insulin-dependent diabetes mellitus. 5. Hypertension. 6. Obesity. RECOMMENDATIONS: 1. None. 2. Will increase his activity and he will be able to be discharged tomorrow. MMJUAN / ANTOINE: [id number] /
--- NOTE | 2019-09-01 11:28 | P.PN ---
<HeltonLien Felicita - Last Filed: 09/01/19 11:24> Subjective Progress Note Date: 09/01/19 CHIEF COMPLAINT: Renal failure HISTORY OF PRESENT ILLNESS: 79-year-old male who is status post attempted peritoneal dialysis catheter insertion and diagnostic laparoscopy with Dr. Puente. Patient examined this morning at the bedside. He denies abdominal pain. He is awaiting evaluation from nephrology regarding hemodialysis. Vital signs stable. He is afebrile. PHYSICAL EXAM: VITAL SIGNS: Reviewed. GENERAL: Well-developed in no acute distress. HEENT: No sclera icterus. Extraocular movements grossly intact. Moist buccal mucosa. Head is atraumatic, normocephalic. ABDOMEN: Soft. Nondistended. Nontender. Surgical sites clean dry intact with erythema or drainage. NEUROLOGIC: Alert and oriented. Cranial nerves II through XII grossly intact. ASSESSMENT: 1. Renal failure, status post attempted peritoneal dialysis catheter insertion and diagnostic laparoscopy PLAN: -Continue diet as tolerated -Await evaluation from nephrology regarding possible initiation of hemodialysis Nurse practitioner note has been reviewed by physician. Signing provider agrees with the documented findings, assessment, and plan of care. Objective - Vital Signs Vital signs: Vital Signs Temp 98 F 09/01/19 00:00 Pulse 56 L 09/01/19 04:00 Resp 18 09/01/19 04:00 BP 159/74 09/01/19 04:00 Pulse Ox 95 09/01/19 04:00 Intake & Output 08/31/19 09/01/19 09/01/19 18:59 06:59 18:59 Intake Total 250 230 Output Total 15 Balance 235 230 Weight 86.3 kg 83.7 kg Intake: IV 250 Oral 230 Output: Estimated Blood Loss 15 Other: # Voids 1 5 - Labs CBC & Chem 7: 09/01/19 05:47 09/01/19 05:47 Labs: Abnormal Lab Results - Last 24 Hours (Table) 08/31/19 08/31/19 08/31/19 Range/Units 12:33 14:56 16:43 RBC (4.30-5.90) m/uL Hgb (13.0-17.5) gm/dL Hct (39.0-53.0) % Potassium 6.1 H* (3.5-5.1) mmol/L Chloride (98-107) mmol/L Carbon Dioxide (22-30) mmol/L BUN (9-20) mg/dL Creatinine (0.66-1.25) mg/dL POC Glucose (mg/dL) 123 H 122 H (75-99) mg/dL 08/31/19 09/01/19 09/01/19 Range/Units 20:46 05:47 05:47 RBC 4.13 L (4.30-5.90) m/uL Hgb 11.4 L (13.0-17.5) gm/dL Hct 35.4 L (39.0-53.0) % Potassium 5.7 H (3.5-5.1) mmol/L Chloride 112 H (98-107) mmol/L Carbon Dioxide 19 L (22-30) mmol/L BUN 60 H (9-20) mg/dL Creatinine 4.15 H (0.66-1.25) mg/dL POC Glucose (mg/dL) 137 H (75-99) mg/dL 09/01/19 09/01/19 Range/Units 06:17 06:57 RBC (4.30-5.90) m/uL Hgb (13.0-17.5) gm/dL Hct (39.0-53.0) % Potassium (3.5-5.1) mmol/L Chloride (98-107) mmol/L Carbon Dioxide (22-30) mmol/L BUN (9-20) mg/dL Creatinine (0.66-1.25) mg/dL POC Glucose (mg/dL) 101 H 106 H (75-99) mg/dL <Ben Puente - Last Filed: 09/01/19 12:36> Subjective As above. Patient without pain. He is requesting to initiate dialysis while hospitalized. We'll discuss with nephrology. Objective - Vital Signs Vital signs: Vital Signs Temp 98 F 09/01/19 00:00 Pulse 56 L 09/01/19 04:00 Resp 18 09/01/19 04:00 BP 159/74 09/01/19 04:00 Pulse Ox 95 09/01/19 04:00 Intake & Output 08/31/19 09/01/19 09/01/19 18:59 06:59 18:59 Intake Total 250 230 Output Total 15 Balance 235 230 Weight 86.3 kg 83.7 kg Intake: IV 250 Oral 230 Output: Estimated Blood Loss 15 Other: # Voids 1 5 - Labs CBC & Chem 7: 09/01/19 05:47 09/01/19 05:47 Labs: Abnormal Lab Results - Last 24 Hours (Table) 08/31/19 08/31/19 08/31/19 Range/Units 14:56 16:43 20:46 RBC (4.30-5.90) m/uL Hgb (13.0-17.5) gm/dL Hct (39.0-53.0) % Potassium 6.1 H* (3.5-5.1) mmol/L Chloride (98-107) mmol/L Carbon Dioxide (22-30) mmol/L BUN (9-20) mg/dL Creatinine (0.66-1.25) mg/dL POC Glucose (mg/dL) 122 H 137 H (75-99) mg/dL 09/01/19 09/01/19 09/01/19 Range/Units 05:47 05:47 06:17 RBC 4.13 L (4.30-5.90) m/uL Hgb 11.4 L (13.0-17.5) gm/dL Hct 35.4 L (39.0-53.0) % Potassium 5.7 H (3.5-5.1) mmol/L Chloride 112 H (98-107) mmol/L Carbon Dioxide 19 L (22-30) mmol/L BUN 60 H (9-20) mg/dL Creatinine 4.15 H (0.66-1.25) mg/dL POC Glucose (mg/dL) 101 H (75-99) mg/dL 09/01/19 09/01/19 Range/Units 06:57 11:53 RBC (4.30-5.90) m/uL Hgb (13.0-17.5) gm/dL Hct (39.0-53.0) % Potassium (3.5-5.1) mmol/L Chloride (98-107) mmol/L Carbon Dioxide (22-30) mmol/L BUN (9-20) mg/dL Creatinine (0.66-1.25) mg/dL POC Glucose (mg/dL) 106 H 122 H (75-99) mg/dL
[2019-09-01 12:03] LABS: Glucose,Whole Blood 122 mg/dL (75-99)
[2019-09-01 15:50] VITALS: BMI 28.9
[2019-09-01 16:44] LABS: Glucose,Whole Blood 164 mg/dL (75-99)
[2019-09-01] MEDS: SODIUM CHLORIDE 0.9% 1,000 ML IV SCH (18:20)
--- NOTE | 2019-09-01 19:31 | PN ---
PROGRESS NOTE DATE OF SERVICE: 09/01/2019. CHIEF COMPLAINT: Failed attempt to place a peritoneal dialysis catheter. HISTORY OF PRESENT ILLNESS: This gentleman is stable today and is only complaining of some frequent urination. He has had no chest pain, shortness of breath, abdominal pain, fever and chills, etc. PHYSICAL EXAM: HEENT is normal. Chest is clear. The cardiac is normal. The abdomen is protuberant, soft and bowel sounds are present. IMPRESSIONS: 1. Failed attempt at placing a peritoneal dialysis catheter. 2. End-stage renal disease. 3. Hypertension. 4. Type 2 insulin-dependent diabetes mellitus. PLAN: Continue to follow with surgery today and if he does well today, he could probably go home tomorrow. MMODL / IJN: [id number] /
[2019-09-01 21:02] LABS: Glucose,Whole Blood 150 mg/dL (75-99)
[2019-09-01] MEDS: LATANOPROST 0.005% OPHTH DROPS 2.5 ML BTL BOTH EYES SCH (21:15)
[2019-09-01] MEDS: MONTELUKAST 10 MG TAB PO SCH (21:15)
[2019-09-01] MEDS: GABAPENTIN 300 MG CAP PO SCH (21:15)
[2019-09-02 03:22] LABS: Hepatitis B Surface AB- Quant 3.5 mIU/mL; Hepatitis B Surface Antibody Non-Reactive (Non-Reactive)
[2019-09-02 04:32] LABS: Hepatitis B Surface Antigen Non-Reactive (Non-Reactive)
[2019-09-02] MEDS: INSULIN ASPART (NovoLOG) 100 UNIT/ML VIAL SQ SCH ×4 (05:56→21:20)
[2019-09-02] MEDS: INSULIN DETEMIR (LEVEMIR) 100 UNIT/ML SYR SQ SCH (05:57)
[2019-09-02 06:08] LABS: Appearance,Urine Clear (Clear); Bacteria,Urine Rare /hpf; Bilirubin,Urine Negative (Negative); Blood,Urine Trace (Negative); Color,Urine Light Yellow; Glucose,Urine (UA) 3+ (Negative); Ketones,Urine Negative (Negative); Leukocyte Esterase,Urine Negative (Negative); Nitrite,Urine Negative (Negative); PH, Urine 6.5 (5.0-8.0); Protein,Urine 2+ (Negative); RBC,Urine <1 /hpf (0-5); Specific Gravity,Urine 1.012 (1.001-1.035); Urobilinogen,Urine <2.0 mg/dL (<2.0)
[2019-09-02 06:14] LABS: Glucose,Whole Blood 149 mg/dL (75-99)
[2019-09-02 06:58] LABS: HCT 34.3 % (39.0-53.0); HGB 11.3 gm/dL (13.0-17.5); MCH 27.9 pg (25.0-35.0); MCHC 32.9 g/dL (31.0-37.0); MCV 84.9 fL (80.0-100.0); Mean Platelet Volume 8.3; Platelet Count 153 k/uL (150-450); RBC 4.04 m/uL (4.30-5.90); RDW 15.1 % (11.5-15.5); WBC 10.1 k/uL (3.8-10.6)
[2019-09-02 07:07] LABS: Calcium 9.7 mg/dL (8.4-10.2); Potassium 5.1 mmol/L (3.5-5.1)
[2019-09-02] MEDS: ISOSORBIDE MONONITRATE 20 MG TAB PO SCH ×2 (08:07→18:06)
[2019-09-02] MEDS: amLODIPine 10 MG TAB PO SCH (08:07)
[2019-09-02] MEDS ORDERED: SODIUM CHLORIDE 0.9% 250 ML IV ONE (08:40)
[2019-09-02] MEDS ORDERED: fentaNYL (PF) 50 MCG/ML 2 ML AMP IVP ONE (08:43)
[2019-09-02] MEDS: LIDOCAINE 1% INJ 10MG/ML (20 ML MDV) SQ ONE ×2 (08:45→09:07)
[2019-09-02] MEDS ORDERED: MIDAZOLAM 2 MG/2 ML VIAL IVP ONE (09:06)
[2019-09-02] MEDS ORDERED: LIDOCAINE 1% INJ 10MG/ML (20 ML MDV) SQ ONE (09:15)
--- NOTE | 2019-09-02 10:19 | OP ---
OPERATIVE REPORT PREOPERATIVE DIAGNOSIS: Acute on chronic renal failure. PROCEDURE: Ultrasound-guided 23 cm dialysis catheter, right jugular approach. SEDATION: Sedation time was 40 minutes. PROCEDURE DESCRIPTION: Patient was brought to the brine room laborer. Right side of the neck and chest was prepped. Drapes were applied in sterile manner. Lidocaine 1% was infiltrated in the right neck area. After that, micropuncture guide was introduced into the right jugular vein with ultrasound guidance. Micropuncture guidewire was passed and 4-Turkish dilator advanced on top of the guidewire. Then incision was made on the chest wall, tunnel created. Through the tunnel we brought the 23 cm dialysis catheter. Then we passed a regular guidewire, which was parked in the inferior vena cava. Dilator was advanced on top of the guidewire. Then we placed a sheath on the top of the guidewire. Through the sheath we introduced the dialysis catheter. Tip of the catheter was in superior vena cava and atrial junction. Flushed with heparin saline and Hep-locked. The incision was closed with nylon and 3-0 Vicryl. Dressing was applied. Patient tolerated the procedure well. MMODL / IJN: [id number] /
[2019-09-02] MEDS: FERROUS SULFATE 325 MG TAB PO SCH (10:38)
[2019-09-02] MEDS: SEVELAMER 800 MG TAB PO SCH ×2 (10:38→18:06)
[2019-09-02] MEDS: SODIUM BICARBONATE TAB 650 MG TAB PO SCH (10:38)
[2019-09-02] MEDS: PANTOPRAZOLE 40 MG TABLET PO SCH ×2 (10:39→18:07)
[2019-09-02] MEDS: GABAPENTIN 100 MG CAP PO SCH ×2 (10:39→18:06)
[2019-09-02] MEDS: OXYBUTYNIN 10 MG TAB.ER.24 PO SCH (10:43)
--- NOTE | 2019-09-02 11:00 | XR ---
EXAMINATION TYPE: XR chest 1V portable DATE OF EXAM: 09/02/2019 HISTORY: dialysis cath insertion. REFERENCE: Previous study dated 07/31/2019. FINDINGS: There is a right shoulder arthroplasty in place. A large-bore, double-lumen catheter is been inserted via a right internal jugular approach. Its tip i s at the cavoatrial junction. I do not see evidence of pneumothorax. The lungs are clear. Pleural spaces are clear. Heart size upper limits of normal. IMPRESSION: I DO NOT SEE A POST CATHETER INSERTION COMPLICATION.
--- NOTE | 2019-09-02 11:18 | P.PN ---
Subjective Progress Note Date: 09/02/19 Principal diagnosis: This is a 79-year-old male with diabetic nephropathy chronic kidney disease stage V was admitted for a PD catheter surgery was attempted on 08/31/2019, which was unsuccessful because of adhesions. Subsequently he had a permacath placed this morning on 09/02/2019 He has somewhat poor appetite but no nausea vomiting no chest pain shortness of breath. He feels comfortable. Objective - Vital Signs Vital signs: Vital Signs Temp 98.6 F 09/01/19 20:00 Pulse 75 09/02/19 04:00 Resp 18 09/02/19 04:00 BP 148/68 09/02/19 04:00 Pulse Ox 94 L 09/02/19 04:00 Intake & Output 09/01/19 09/02/19 09/02/19 18:59 06:59 18:59 Intake Total 652 80 Balance 652 80 Weight 83.7 kg 82.3 kg Intake: IV 80 Oral 652 Other: # Voids 3 1 1 On examination is awake alert oriented comfortable HEENT exam no JVP neck is supple no facial asymmetry Lungs are clear to auscultation good air entry bilaterally Heart sounds are unremarkable for any murmur rub gallop Abdomen soft nontender scar of attempted PD catheter site is clear Extremity exam was no edema Neurologically awake alert oriented - Labs CBC & Chem 7: 09/02/19 06:26 09/02/19 06:26 Labs: Abnormal Lab Results - Last 24 Hours (Table) 09/01/19 09/01/19 09/01/19 Range/Units 11:53 16:37 21:00 RBC (4.30-5.90) m/uL Hgb (13.0-17.5) gm/dL Hct (39.0-53.0) % Chloride (98-107) mmol/L Carbon Dioxide (22-30) mmol/L BUN (9-20) mg/dL Creatinine (0.66-1.25) mg/dL Glucose (74-99) mg/dL POC Glucose (mg/dL) 122 H 164 H 150 H (75-99) mg/dL Urine Protein (Negative) Urine Glucose (UA) (Negative) Urine Blood (Negative) Urine Bacteria (None) /hpf 09/02/19 09/02/19 09/02/19 Range/Units 05:53 06:12 06:26 RBC 4.04 L (4.30-5.90) m/uL Hgb 11.3 L (13.0-17.5) gm/dL Hct 34.3 L (39.0-53.0) % Chloride (98-107) mmol/L Carbon Dioxide (22-30) mmol/L BUN (9-20) mg/dL Creatinine (0.66-1.25) mg/dL Glucose (74-99) mg/dL POC Glucose (mg/dL) 149 H (75-99) mg/dL Urine Protein 2+ H (Negative) Urine Glucose (UA) 3+ H (Negative) Urine Blood Trace H (Negative) Urine Bacteria Rare H (None) /hpf 09/02/19 Range/Units 06:26 RBC (4.30-5.90) m/uL Hgb (13.0-17.5) gm/dL Hct (39.0-53.0) % Chloride 113 H (98-107) mmol/L Carbon Dioxide 18 L (22-30) mmol/L BUN 55 H (9-20) mg/dL Creatinine 4.21 H (0.66-1.25) mg/dL Glucose 123 H (74-99) mg/dL POC Glucose (mg/dL) (75-99) mg/dL Urine Protein (Negative) Urine Glucose (UA) (Negative) Urine Blood (Negative) Urine Bacteria (None) /hpf Assessment and Plan Assessment: Impression 1. Diabetic nephropathy chronic kidney disease stage 5. 2. Attempted PD catheter insertion failed because of adhesions dated 09/08/2019 3. Status post permacath insertion today 09/02/2019 4. Mild degree of non-gap acidosis with bicarb of 18 and anion gap of 10 secondary to chronic kidney disease 5. Mild anemia hemoglobin 7.3 at target etiologies ESRD Recommendation 1. Patient will be dialyzed today with QB to 250, time is 2.5 hours. 2. Patient would like to be discharged. We will arrange his dialysis at the [facility] in the detox facility per patient's preference on Wednesday. We can have this arranged through our office on Wednesday morning patient is been instructed. Given him my cell phone just in case of difficulty in arranging dialysis on Wednesday at the outpatient facility
--- NOTE | 2019-09-02 11:47 | P.PN ---
Subjective Progress Note Date: 09/02/19 Principal diagnosis: Renal failure Patient doing well today. He had his permacath placed earlier today. Denies abdominal pain. Tolerating diet. Objective - Vital Signs Vital signs: Vital Signs Temp 98.6 F 09/01/19 20:00 Pulse 75 09/02/19 04:00 Resp 18 09/02/19 04:00 BP 148/68 09/02/19 04:00 Pulse Ox 94 L 09/02/19 04:00 Intake & Output 09/01/19 09/02/19 09/02/19 18:59 06:59 18:59 Intake Total 652 80 Balance 652 80 Weight 83.7 kg 82.3 kg Intake: IV 80 Oral 652 Other: # Voids 3 1 1 - Exam Abdomen: Soft, nondistended, incisions clean and dry, nontender - Labs CBC & Chem 7: 09/02/19 06:26 09/02/19 06:26 Labs: Abnormal Lab Results - Last 24 Hours (Table) 09/01/19 09/01/19 09/01/19 Range/Units 11:53 16:37 21:00 RBC (4.30-5.90) m/uL Hgb (13.0-17.5) gm/dL Hct (39.0-53.0) % Chloride (98-107) mmol/L Carbon Dioxide (22-30) mmol/L BUN (9-20) mg/dL Creatinine (0.66-1.25) mg/dL Glucose (74-99) mg/dL POC Glucose (mg/dL) 122 H 164 H 150 H (75-99) mg/dL Urine Protein (Negative) Urine Glucose (UA) (Negative) Urine Blood (Negative) Urine Bacteria (None) /hpf 09/02/19 09/02/19 09/02/19 Range/Units 05:53 06:12 06:26 RBC 4.04 L (4.30-5.90) m/uL Hgb 11.3 L (13.0-17.5) gm/dL Hct 34.3 L (39.0-53.0) % Chloride (98-107) mmol/L Carbon Dioxide (22-30) mmol/L BUN (9-20) mg/dL Creatinine (0.66-1.25) mg/dL Glucose (74-99) mg/dL POC Glucose (mg/dL) 149 H (75-99) mg/dL Urine Protein 2+ H (Negative) Urine Glucose (UA) 3+ H (Negative) Urine Blood Trace H (Negative) Urine Bacteria Rare H (None) /hpf 09/02/19 Range/Units 06:26 RBC (4.30-5.90) m/uL Hgb (13.0-17.5) gm/dL Hct (39.0-53.0) % Chloride 113 H (98-107) mmol/L Carbon Dioxide 18 L (22-30) mmol/L BUN 55 H (9-20) mg/dL Creatinine 4.21 H (0.66-1.25) mg/dL Glucose 123 H (74-99) mg/dL POC Glucose (mg/dL) (75-99) mg/dL Urine Protein (Negative) Urine Glucose (UA) (Negative) Urine Blood (Negative) Urine Bacteria (None) /hpf Assessment and Plan (1) Renal failure Narrative/Plan: Patient apparently to have hemodialysis today and then probable discharge. W e'll sign off at this point. Please call if needed. Current Visit: Yes Status: Acute Code(s): N19 - UNSPECIFIED KIDNEY FAILURE SNOMED Code(s): 51319133
[2019-09-02 11:59] LABS: Glucose,Whole Blood 97 mg/dL (75-99)
[2019-09-02] MEDS ORDERED: HYDROcodone/APAP 5-325MG 1 EACH TAB PO PRN (14:37)
--- NOTE | 2019-09-02 15:16 | PN ---
PROGRESS NOTE CHIEF COMPLAINT: End-stage renal disease. HISTORY OF PRESENT ILLNESS: This gentleman has gone down for dialysis catheter placement. He will be dialyzed today. PHYSICAL EXAMINATION: His chest is clear. Cardiac exam is normal. Abdomen is soft, nontender. IMPRESSION: 1. End-stage renal disease. 2. Diabetes. PLAN: Start dialysis today. MMODL / IJN: [id number] /
[2019-09-02 17:16] LABS: Glucose,Whole Blood 247 mg/dL (75-99)
[2019-09-02] MEDS: SODIUM CHLORIDE 0.9% 1,000 ML IV SCH (18:08)
[2019-09-02 20:48] LABS: Glucose,Whole Blood 205 mg/dL (75-99)
[2019-09-02] MEDS: MONTELUKAST 10 MG TAB PO SCH (21:20)
[2019-09-02] MEDS: GABAPENTIN 300 MG CAP PO SCH (21:20)
[2019-09-02] MEDS: LATANOPROST 0.005% OPHTH DROPS 2.5 ML BTL BOTH EYES SCH (23:13)
[2019-09-03 06:17] LABS: HCT 36.1 % (39.0-53.0); HGB 11.8 gm/dL (13.0-17.5); MCH 27.7 pg (25.0-35.0); MCHC 32.6 g/dL (31.0-37.0); MCV 84.8 fL (80.0-100.0); Mean Platelet Volume 7.6; Platelet Count 174 k/uL (150-450); RBC 4.25 m/uL (4.30-5.90); RDW 14.9 % (11.5-15.5); WBC 10.6 k/uL (3.8-10.6)
[2019-09-03 06:28] LABS: Calcium 9.3 mg/dL (8.4-10.2)
[2019-09-03 06:49] LABS: Glucose,Whole Blood 140 mg/dL (75-99)
[2019-09-03] MEDS: PANTOPRAZOLE 40 MG TABLET PO SCH (06:57)
[2019-09-03] MEDS: SEVELAMER 800 MG TAB PO SCH (06:57)
[2019-09-03] MEDS: INSULIN ASPART (NovoLOG) 100 UNIT/ML VIAL SQ SCH ×2 (06:57→12:35)
[2019-09-03] MEDS: INSULIN DETEMIR (LEVEMIR) 100 UNIT/ML SYR SQ SCH (06:57)
[2019-09-03] MEDS: ISOSORBIDE MONONITRATE 20 MG TAB PO SCH (09:00)
[2019-09-03] MEDS: amLODIPine 10 MG TAB PO SCH (09:00)
[2019-09-03] MEDS: GABAPENTIN 100 MG CAP PO SCH (09:00)
[2019-09-03] MEDS: FERROUS SULFATE 325 MG TAB PO SCH (09:00)
[2019-09-03] MEDS: OXYBUTYNIN 10 MG TAB.ER.24 PO SCH (09:00)
[2019-09-03] MEDS: SODIUM BICARBONATE TAB 650 MG TAB PO SCH (09:00)
[2019-09-03 09:47] VITALS: PULSE 72; TEMP 98.4
--- NOTE | 2019-09-03 11:10 | P.PN ---
Subjective Progress Note Date: 09/03/19 Principal diagnosis: This is a 79-year-old male with diabetic nephropathy chronic kidney disease stage V was admitted for a PD catheter surgery was attempted on 08/31/2019, which was unsuccessful because of adhesions. Subsequently he had a permacath placed on 09/02/2019, and had a first dialysis without any problems. He has somewhat poor appetite but no nausea vomiting no chest pain shortness of breath. He feels comfortable. He is very concerned about possibly requiring co-pays for his dialysis treatments and says he may not be able to afford it. I told him that we will discuss this with the health social work professor in the dialysis unit. He is willing to go to [facility] as he feels that it'll offer him at her options regarding what shift she will want. Objective - Vital Signs Vital signs: Vital Signs Temp 98.4 F 09/03/19 08:00 Pulse 72 09/03/19 08:00 Resp 18 09/03/19 08:00 BP 136/64 09/03/19 08:00 Pulse Ox 96 09/03/19 08:00 Intake & Output 09/02/19 09/03/19 09/03/19 18:59 06:59 18:59 Intake Total 80 240 Output Total 200 Balance -120 240 Weight 81.2 kg Intake: IV 80 Oral 240 Output: Urine 200 Other: # Voids 0 2 Examination awake alert oriented comfortable sitting in chair HEENT exam no JVP neck is supple no facial asymmetry Lungs clear to auscultation good air entry bilaterally Heart sounds are unremarkable no murmur rub gallop Abdomen soft nontender Extreme exam was no edema Neurologically awake alert oriented - Labs CBC & Chem 7: 09/03/19 06:00 09/03/19 06:00 Labs: Abnormal Lab Results - Last 24 Hours (Table) 09/02/19 09/02/19 09/03/19 Range/Units 16:55 20:40 06:00 RBC 4.25 L (4.30-5.90) m/uL Hgb 11.8 L (13.0-17.5) gm/dL Hct 36.1 L (39.0-53.0) % BUN (9-20) mg/dL Creatinine (0.66-1.25) mg/dL Glucose (74-99) mg/dL POC Glucose (mg/dL) 247 H 205 H (75-99) mg/dL 09/03/19 09/03/19 Range/Units 06:00 06:47 RBC (4.30-5.90) m/uL Hgb (13.0-17.5) gm/dL Hct (39.0-53.0) % BUN 42 H (9-20) mg/dL Creatinine 3.68 H (0.66-1.25) mg/dL Glucose 139 H (74-99) mg/dL POC Glucose (mg/dL) 140 H (75-99) mg/dL Assessment and Plan Assessment: Impression 1. Diabetic nephropathy chronic kidney disease stage 5. Going into dialysis as of 09/02/2019 yesterday for his first dialysis 2. Attempted PD catheter insertion failed because of adhesions dated 08/31/2019 3. Status post permacath insertion 09/02/2019 4. Mild degree of non-gap acidosis with bicarb of 18 and anion gap of 10 s econdary to chronic kidney disease 5. Mild anemia hemoglobin 7.3 at target etiologies ESRD Recommendation 1. Patient will be dialyzed as an outpatient, and per patient preference will go to [facility] in the vane facility because of profound 4 shifts that are not available elsewhere 2. We can have this arranged through our office on Wednesday morning patient was told to call the office tomorrow morning or go there so that the dialysis unit can be contacted and he will be started on dialysis possibly on Wednesday itself or the next Again today I have given him my cell phone number if he experiences difficulty in arranging dialysis on Wednesday at the outpatient facility
[2019-09-03 12:00] LABS: Glucose,Whole Blood 173 mg/dL (75-99)
[2019-09-03 14:42] VITALS: BP 132/61; RESP 16
--- NOTE | 2019-09-03 22:55 | DS ---
DISCHARGE SUMMARY CHIEF COMPLAINT: End-stage renal disease. HISTORY OF PRESENT ILLNESS: This gentleman was brought in for a placement of a peritoneal catheter for dialysis. It could not be completed due to intraabdominal scar tissue. After that, he was taken for placement of a dialysis catheter in the right upper anterior chest. It was then felt that he could be discharged. Laboratory studies and surgical details can be found in his initial workup. He will go home on his usual activity. He will be followed up in our office in several days and he will be set up for dialysis on Wednesday. FINAL DIAGNOSES: 1. End-stage renal disease. 2. Poorly controlled type 2 [id number] diabetes mellitus. 3. Hypertension. 4. Coronary artery disease. OPERATIONS: Attempted placement of peritoneal dialysis catheter. CONSULTATIONS: General surgery and Nephrology. He is improved. MMODL / IJN: [id number] /
--- NOTE | 2019-09-04 12:00 | IR ---
EXAMINATION TYPE: IR cvc insert central tunneled DATE OF EXAM: 09/02/2019 CLINICAL HISTORY: Failed dialysis. TECHNIQUE: Fluoroscopy. COMPARISON: None. FINDINGS: Fluoroscopic guidance was provided during right internal jugular dialysis catheter inserti on procedure performed by Dr. Gibson. A total of 3.6 minute of fluoroscopic time was utilized durin g the procedure and 6 spot intraoperative images are acquired. Images acquired show placement of guid ewire and subsequent right internal jugular large-bore dialysis catheter with tips terminating near t he cavoatrial junction. IMPRESSION: As Above.
== END 2019-09-03 14:39 | disposition home or self-care (01) ==
LOC: OR 11:57 → 3SCARD 17:00 → INTOOBSV 17:00 → UNDODISIN 09-03 14:39
PROVIDERS: ADMIT Family Medicine; ATTEND Family Medicine
DX: E11.22 Type 2 diabetes mellitus with diabetic chronic kidney disease (principal); N18.6 End stage renal disease; N17.9 Acute kidney failure, unspecified; I12.0 Hypertensive chronic kidney disease with stage 5 chronic kidney disease or end stage renal disease; K66.0 Peritoneal adhesions (postprocedural) (postinfection); N25.0 Renal osteodystrophy; E87.5 Hyperkalemia; D63.1 Anemia in chronic kidney disease; N25.89 Other disorders resulting from impaired renal tubular function; M19.90 Unspecified osteoarthritis, unspecified site; G47.33 Obstructive sleep apnea (adult) (pediatric); E03.9 Hypothyroidism, unspecified; E11.42 Type 2 diabetes mellitus with diabetic polyneuropathy; I25.10 Atherosclerotic heart disease of native coronary artery without angina pectoris; E66.9 Obesity, unspecified; Z68.28 Body mass index [BMI] 28.0-28.9, adult; Z53.9 Procedure and treatment not carried out, unspecified reason; Z79.899 Other long term (current) drug therapy; Z79.4 Long term (current) use of insulin; Z79.890 Hormone replacement therapy; Z79.82 Long term (current) use of aspirin; Z87.442 Personal history of urinary calculi; Z90.49 Acquired absence of other specified parts of digestive tract; Z98.890 Other specified postprocedural states; Z96.611 Presence of right artificial shoulder joint; Z90.89 Acquired absence of other organs; Z82.49 Family history of ischemic heart disease and other diseases of the circulatory system; Z80.9 Family history of malignant neoplasm, unspecified; Z82.5 Family history of asthma and other chronic lower respiratory diseases; Z83.3 Family history of diabetes mellitus
CPT/HCPCS: 49320; 36558; 76937; 77001; 80048 ×3; 84132; 85027 ×3; 86706; 87340; 81001; 86704; 71045; G0378 ×4; C1769 ×2; C1750; J2250 ×2; J1644; J2710; J0690; J2001; J3010 ×2; J2704; 90935

== ENCOUNTER → 2019-09-14 | Outpatient (CLI) | payer MEDICARE ==
--- NOTE | 2019-09-14 15:25 | XR ---
EXAMINATION TYPE: XR bone survey complete DATE OF EXAM: 09/14/2019 COMPARISON: CT of the chest and abdomen dated 08/01/2019. HISTORY: Abnormal bloodwork. Monoclonal gammopathy. FINDINGS: CHEST: Large bore dual-lumen right-sided hemodialysis catheter terminating in the distal superior lizandro a cava. Left hemidiaphragm elevation. Reverse right humeral arthroplasty. No focal consolidation. Na gical change of the left humerus likely from prior rotator cuff repair. Mildly enlarged cardiac media stinal silhouette. BONY CALVARIUM : 2 views of the bony calvarium demonstrate. No sutural widening or lytic lesion. SPINE: Two views of the cervical, thoracic and lumbar spines are submitted. No suspicious lytic lesi on. Moderate degenerative changes of the lower cervical spine, dextroscoliosis of the thoracolumbar j unction along segment, mild degenerative changes of the thoracic spine, levoscoliosis of the lumbar s pine, and advanced degenerative disc disease of the lumbar spine. PELVIS: Single view of the pelvis demonstrates. Ovoid density overlying the superior left sacrum at the lumbosacral junction, possible protuberant osteophyte. Overlying bowel slightly limits evaluation of the iliac bones, sacrum and pubic symphysis 4 lytic lesion. No gross evidence of lytic lesion see n in the pelvis. UPPER EXTREMITIES: Two views of the upper extremities. Reverse right humeral arthroplasty and prior s urgical change of the left humerus, probable rotator cuff repair. No suspicious lytic lesion. Surgica l clips at the left elbow. LOWER EXTREMITIES: 2 views of the lower extremities. No suspicious lytic lesion. Hqls-[id number] ar thropathy of the hips and knees. IMPRESSION: No suspicious lytic lesions throughout the visualized osseous structures. Other incidenta l findings as described above.
== END | disposition home or self-care (01) ==
LOC: RAD 14:04
PROVIDERS: ATTEND Internal Medicine Hematology & Oncology
DX: D47.2 Monoclonal gammopathy (principal); I10 Essential (primary) hypertension; D60.9 Acquired pure red cell aplasia, unspecified; E11.9 Type 2 diabetes mellitus without complications
CPT/HCPCS: 77075

== ENCOUNTER → 2020-06-26 | Outpatient (CLI) | payer MEDICARE ==
[2020-06-26 13:07] LABS: HCT 40.7 % (39.0-53.0); HGB 13.7 gm/dL (13.0-17.5); MCH 32.3 pg (25.0-35.0); MCHC 33.8 g/dL (31.0-37.0); MCV 95.7 fL (80.0-100.0); Mean Platelet Volume 7.6; Platelet Count 227 k/uL (150-450); RBC 4.25 m/uL (4.30-5.90); RDW 13.7 % (11.5-15.5); WBC 10.4 k/uL (3.8-10.6)
[2020-06-26 13:17] LABS: Potassium 3.6 mmol/L (3.5-5.1)
== END | disposition home or self-care (01) ==
LOC: LABWHC1 11:43
PROVIDERS: ATTEND Internal Medicine Clinical Cardiac Electrophysiology
DX: Z01.818 Encounter for other preprocedural examination (principal); R55 Syncope and collapse
CPT/HCPCS: 80051; 82565; 84520; 85027

== ENCOUNTER 2020-06-28 07:38 | Day surgery (SDC) | payer MEDICARE ==
[2020-06-27 09:11] VITALS: BMI 26.4
[~2020-06-28 07:38] MED LIST changes: -HEPARIN SODIUM,PORCINE 5,000 UNIT/ML 1 ML VIAL SQ ONE; +SODIUM CHLORIDE 0.9% 1,000 ML IV SCH
[2020-06-28 08:20] LABS: Glucose,Whole Blood 201 mg/dL (75-99)
[2020-06-28 08:21] VITALS: RESP 16; TEMP 98
[2020-06-28] MEDS ORDERED: SODIUM CHLORIDE 0.9% 500 ML 500 ML IV ONE (08:21)
[2020-06-28] MEDS ORDERED: LIDOCAINE 1% INJ 10MG/ML (20 ML MDV) ONE (10:57)
[2020-06-28] MEDS ORDERED: LIDOCAINE 1% INJ 10MG/ML (20 ML MDV) SQ ONE (11:24)
--- NOTE | 2020-06-28 11:39 | P.EPPROC ---
- EP Procedure Note Electrophysiology Procedure Note: Loop monitor implant Primary physicians: Teaching Manager: Dr. Paris Indication: Syncope while sitting Patient was brought to the EP lab in a fasting state. Written informed consent was obtained prior to the procedure. The left pectoral area was prepped and draped per protocol. Intravenous antibiotic was administered preoperatively. A subcutaneous Loop monitor was implanted successfully and the wound was closed per protocol. The device was programmed to detect significant zelda- arrhythmic and tachy-arrhythmic events, per protocol. Device and programming details: Syncope protocol. Patient underwent EP procedure under conscious sedation/moderate sedation, monitoring of the level of consciousness and physiologic parameters including but not limited to vital signs and oxygenation. Patient tolerated the procedure well without any acute complications. Start time: 1123 Stop time: 1131
[2020-06-28 12:00] VITALS: BP 148/68; PULSE 79
[2020-06-28] MEDS ORDERED: INSULIN ASPART (NovoLOG) 100 UNIT/ML VIAL SQ SCH (12:30)
== END 2020-06-28 12:16 | disposition home or self-care (01) ==
LOC: CATHEP 07:38
PROVIDERS: ATTEND Internal Medicine Clinical Cardiac Electrophysiology
DX: R55 Syncope and collapse (principal); I25.118 Atherosclerotic heart disease of native coronary artery with other forms of angina pectoris; E11.9 Type 2 diabetes mellitus without complications; I10 Essential (primary) hypertension; E78.5 Hyperlipidemia, unspecified; Z79.890 Hormone replacement therapy; Z79.82 Long term (current) use of aspirin; Z79.899 Other long term (current) drug therapy; Z79.4 Long term (current) use of insulin; Z82.49 Family history of ischemic heart disease and other diseases of the circulatory system; Z98.890 Other specified postprocedural states
CPT/HCPCS: 33285; C1764; J0690; J2001